=== PATIENT | male | born 1980 | race Caucasian/White ===

== ENCOUNTER 2024-05-08 12:40 | Emergency (ER) | payer OTHER, SELFPAY ==
[2024-05-08 12:42] VITALS: BP 154/112; PULSE 70; RESP 17; TEMP 36.2; O2SAT 100
--- NOTE | 2024-05-08 12:45 | DI.CT_ITS ---
Exam(s) CT HEAD WO EXAM: CT HEAD WO CLINICAL HISTORY: fall forward head injury loc. TECHNIQUE: Imaging Protocol: Axial computed tomography images with coronal and sagittal reformatted images were created and reviewed COMPARISON: No exams were available for comparison FINDINGS: There are no skull fractures. There is right-sided nasal bone fracture which may not be acute. There is no fluid in the nasal cavity and paranasal sinuses. There is no evidence of intracranial hemorrhage, mass effect, or shift of midline structures. There are no extra-axial fluid collections. The ventricles are not enlarged or shifted and there is no blo od within the ventricular system nor within the basal cisterns. IMPRESSION: No acute intracranial findings on this noninfused CT scan of the brain. Right nasal bone fracture, probably not acute Report called to ER physician 05/08/2024 2:15 p.m. RADIATION DOSE DELIVERED: Total DLP DATA REPOSITORY: All CT scans at this facility are submitted to the National Radiology Data Registry (NRDR) Dose Index Registry (DIR) with the [employer] (A[employer]). RADIATION OPTIMIZATION: All CT scans at this facility use at least one of these dose optimization te chniques: automated exposure control; mA and/or kV adjustment per patient size (includes targeted exa ms where dose is matched to clinical indication); or iterative reconstruction.
--- NOTE | 2024-05-08 12:45 | DI.RAD_ITS ---
Exam(s) XR CHEST 2V PA LATERAL EXAM: XR CHEST 2V PA LATERAL CLINICAL HISTORY: fall from bench. TECHNIQUE: 2D digital imaging was performed. COMPARISON: No exams were available for comparison FINDINGS: 2 views: Heart size is normal. The mediastinum is not widened. Lungs are clear. No infiltrates nor pleural effusions. On the lateral view there is slight loss of height of T11 vertebral body and superior endplate of T12 . There are no previous for comparison. Correlation with site of tenderness is recommended. IMPRESSION: No acute pulmonary findings. T11 and T12 vertebral body findings as above. Correlation with site of tenderness recommended. DATA REPOSITORY: RADIATION DOSE DELIVERED:
--- NOTE | 2024-05-08 12:53 | ED.GENADUL_ITS ---
Discharge Plan Disposition Patient Disposition: [facility] Condition: Improving Discharge Details Chief Complaint: ETOHWithdr Clinical Impression: Head injury, Alcohol abuse ED Provider: George Escobar Home Meds and New Rx's Prescriptions: No Action latanoprost 0.005 % drops 1 drp ophthalmic (eye) DAILY Betimol 0.5 % drops 1 drp ophthalmic (eye) BID brimonidine 0.1 % drops 1 drp ophthalmic (eye) Q8H Discharge Instructions Instructions: Head injury in adults, Alcohol Use Disorder ED Additional Instructions: Please follow-up with primary care please return to the emergency department for any worsening symptoms HPI General Date/Time Provider Initiated Documentation: 05/08/24 12:43 . HPI Narrative: 44-year-old male history of alcoholism, currently in police custody presents brought in after falling forward off of a bench in custody hitting his head, loss of consciousness with brief convulsive activity, back to baseline currently, noted to have unequal pupils by staff but does have history of glaucoma. Patient endorses last drink was 48 hours ago. Related Data Home Medications ?Medication ?Instructions ?Recorded ?Confirmed brimonidine 0.1 % eye drops 1 drp ophthalmic (eye) Q8H 05/08/24 05/08/24 latanoprost 0.005 % eye drops 1 drp ophthalmic (eye) DAILY 05/08/24 05/08/24 timolol 0.5 % eye drops (Betimol) 1 drp ophthalmic (eye) BID 05/08/24 05/08/24 Allergies Allergy/AdvReac Type Severity Reaction Status Date / Time No Known Allergies Allergy Unverified 05/08/24 12:48 General Stated Complaint: ETOHWithdr VALENTE: 2 Exam Narrative Exam Narrative: Alert oriented resting comfortably no acute distress Moist mucous membranes tolerating secretions normal voice no stridor Lungs clear bilaterally normal speech no rales rhonchi or wheezes Normal rate and rhythm warm well-perfused extremities Alert moving all extremities following commands, no fasciculations of tongue, no tremor of fingers no cranial nerve deficits no weakness or numbness no ataxia; patient does have anisocoria Course Vital Signs Vital signs: Vital Signs Temperature 36.2 C L 05/08/24 12:42 Pulse 70 05/08/24 12:42 Respiratory Rate 17 05/08/24 12:42 Blood Pressure 154/112 H 05/08/24 12:42 Pulse Oximetry 100 05/08/24 12:42 Temperature 36.2 C L 05/08/24 12:42 Temperature Source Skin 05/08/24 12:42 Pulse 70 05/08/24 12:42 Respiratory Rate 17 05/08/24 12:42 Blood Pressure 154/112 H 05/08/24 12:42 Blood Pressure Position Sitting 05/08/24 12:42 Pulse Oximetry 100 05/08/24 12:42 Oxygen Delivery Method Room Air 05/08/24 12:42 Oxygen Flow Rate 0 05/08/24 12:42 Pain Level 7 05/08/24 12:42 Medical Decision Making 44-year-old male history of alcoholism currently in police custody last drink 48 hours ago fell forward off of a bench striking his forehead brief loss of consciousness and short convulsive activity resolved with return to baseline, moving all extremities following commands alert oriented airway intact breathing and circulation intact, no tongue fasciculation no tremor of hands, noted to be moderately hypertensive arrival no tachycardia, afebrile nontoxic CIWA 0-1, noted anisocoria chronic per history, related to glaucoma, low suspicion for active alcohol withdrawal however given history will give dose of oral Librium, will obtain basic labs electrolytes CT head; low suspicion for primary seizure alcohol withdrawal seizure low suspicion for intracranial hemorrhage low suspicion for ACS PE pneumonia pneumothorax or aortic pathology. Close reassessment of symptoms, disposition pending results and imaging 15: 20 no seizure activity here in department. Remains hemodynamically stable. CIWA score 0-1. Labs imaging unremarkable. Patient will be in custody over the next couple of days before his trial, will discharge with Librium taper out of an abundance of caution despite no evidence of severe withdrawal at this time. Care instruction return precautions given Quality:SDOH Health Related Social Needs: No Data to Display PFSH All Active Problems (Updated 05/08/24 @ 15:22 by George Escobar MD) Alcohol abuse (Chronic) Head injury (Acute) Social History Smoking risk assessment performed?: No
[2024-05-08 13:27] LABS: Abs Immature Grans 0.03 10^3/uL (0.0-0.06); Absolute Basophil Count 0.03 10^3/uL (0.0-0.2); Absolute Eosinophil Count 0.01 10^3/uL (0.0-0.7); Absolute Lymphocyte Count 1.04 10^3/uL (1.2-3.4); Absolute Monocyte Count 0.92 10^3/uL (0.1-0.8); Absolute Neutrophil Count 7.67 10^3/uL (1.2-6.7); Basophils % 0.3 %; Eosinophils % 0.1 %; HCT 47.3 % (40.0-50.0); HGB 16.6 g/dL (13.5-17.5); Immature Grans % 0.3 %; Lymphocytes % 10.7 %; MCH 32.4 pg (27.0-33.0); MCHC 35.1 % (32.0-36.0); MCV 92 fL (80-95); MPV 10.6 fL (8.0-11.0); Monocytes % 9.5 %; Neutrophils % 79.1 %; Platelet Count 293 10^3/uL (130-400); RBC 5.13 10^6/uL (4.36-5.78); RDW 12.9 % (11.8-14.1)
[2024-05-08] MEDS: chlordiazePOXIDE 25 MG CAP 50 MG PO (13:28)
[2024-05-08] MEDS: Normal Saline 1,000 ML 1000 ML IV (13:28)
[2024-05-08 13:43] LABS: ALT 54 U/L (16-63); AST 57 U/L (15-37); Albumin 3.4 g/dL (3.4-5.0); Alkaline Phosphatase 114 U/L (46-116); Anion Gap 12.9 mmol/L (3-11); BUN 11 mg/dL (7-18); CO2 25.1 mmol/L (21.0-32.0); CREATININE 0.9 mg/dL (0.70-1.30); Calcium 9.4 mg/dL (8.5-10.1); Chloride 105 mmol/L (98-107); ETHANOL BLOOD < 3.0 mg/dL (<10); Estimated GFR 108.01 (mL/min/1.73m2); Glucose 126 mg/dL (74-106); Potassium 3.7 mmol/L (3.5-5.1); Sodium 143 mmol/L (136-145); Total Protein 7.3 g/dL (6.4-8.2)
[2024-05-08 13:56] LABS: INR 1.1 (0.9-1.1); PTT Activated 27.4 sec (23.6-32.8); Prothrombin Time 10.8 sec (9.1-11.1)
--- NOTE | 2024-05-08 14:34 | NUR.NOTE ---
Nursing Note: DOC guards at the bedside said they pushed call light as soon as they noticed a change in patient. Aide answered light and called this RN in to room. RN quickly responded, katarina said patient's legs and arms started shaking lasted for a few seconds this was 1 min prior to RN and provider in room. Patient alert and oriented x3, speaking in full sentences. Does not appear to be post ictal at this time.
--- NOTE | 2024-05-08 14:40 | DI.VRAD_ITS ---
PROCEDURE INFORMATION: Exam: XR Chest Exam date and time: 05/08/2024 1:50 PM Age: 44 years old Clinical indication: Other: Fall from bench TECHNIQUE: Imaging protocol: Radiologic exam of the chest. Views: 2 views. COMPARISON: No relevant prior studies available. FINDINGS: Lungs: Unremarkable. No consolidation. Pleural spaces: Unremarkable. No pleural effusion. No pneumothorax. Heart/Mediastinum: Unremarkable. No cardiomegaly. Bones/joints: Unremarkable. IMPRESSION: No acute findings. Dictated and Authenticated by: Lars Grace MD. Ordering:MEGHA Vazquez MD
[2024-05-08] MEDS: chlordiazePOXIDE 25 MG CAP PO (16:08)
[2024-05-08] MEDS: chlordiazePOXIDE 25 MG CAP 150 MG PO (16:09)
== END 2024-05-08 16:28 ==
LOC: ER 15:57
PROVIDERS: Emergency Provider Emergency Medicine
DX: F10.10 Alcohol abuse, uncomplicated (principal); S00.83XA Contusion of other part of head, initial encounter; S02.2XXA Fracture of nasal bones, initial encounter for closed fracture; R55 Syncope and collapse; W08.XXXA Fall from other furniture, initial encounter
CPT/HCPCS: 80053; 96360; 99285; 70450; 71046; 80320; 85025; 85610; 85730; 99283

== ENCOUNTER 2025-05-12 22:49 | Emergency (ER) | payer OTHER, SELFPAY ==
[2025-05-12 22:53] VITALS: BP 149/107; PULSE 80; RESP 18; TEMP 36.1; O2SAT 96
--- NOTE | 2025-05-12 23:10 | W.ED.GENAD ---
Discharge Plan Disposition Patient Disposition: Home Condition: Good Discharge Details Clinical Impression: Foreign body in mouth Primary Care Provider: Unknown,Unknown ED Provider: Jed Antonio Home Meds and New Rx's Prescriptions: No Action latanoprost 0.005 % drops 1 drp ophthalmic (eye) DAILY timolol [Betimol] 0.5 % drops 1 drp ophthalmic (eye) BID brimonidine 0.1 % drops 1 drp ophthalmic (eye) Q8H chlordiazepoxide 25 mg tablet 25 mg PO DAILY Discharge Instructions Additional Instructions: The metal bracing clip has been removed. The have not been adding any significant structural support for quite some time. Please follow-up closely with a dentist to have your teeth removed secondary to the notable disease that is present for your teeth. If you notice any worsening of your symptoms, or any new symptoms such as vomiting, diarrhea, fever, chills, shortness of breath, chest pain, numbness, weakness, or fainting , please return immediately to the emergency department for reevaluation. Please follow up with your primary care provider as soon as possible for reassessment and reevaluation. As always, it was a pleasure participating in your medical care today. HPI General Date/Time Provider Initiated Documentation: 05/12/25 22:53. HPI Narrative: 45-year-old male presents today from the nursing home for foreign body in the mouth. Patient states that 2 to 3 years ago he had his jaw broken, he has had a metal retainer in place for years. He states that over the last few months since his teeth became more and more diseased little components that were adhered to the teeth have popped off. And then tonight the last diseased tooth no longer was able to hold the adhesions, and the majority of the brace completely popped off except for a metal wire holding on the back of the brace. Patient presents to have this removed. No other complaints at this time. Related Data Home Medications ?Medication ?Instructions ?Recorded ?Confirmed brimonidine 0.1 % eye drops 1 drp ophthalmic (eye) Q8H 05/08/24 05/12/25 latanoprost 0.005 % eye drops 1 drp ophthalmic (eye) DAILY 05/08/24 05/12/25 timolol 0.5 % eye drops (Betimol) 1 drp ophthalmic (eye) BID 05/08/24 05/12/25 chlordiazepoxide 25 mg tablet 25 mg PO DAILY 05/12/25 05/12/25 Allergies Allergy/AdvReac Type Severity Reaction Status Date / Time No Known Allergies Allergy Unverified 05/12/25 22:57 General Stated Complaint: DentalOral VALENTE: 3 Exam Narrative Exam Narrative: 1.Const: Well-nourished, Well-developed, appearing stated age 2.Eyes: PERRL, no conjunctival injection, and symmetrical lids. 3.ENT: Atraumatic external nose and ears. Moist MM. Neck: Symmetric, trachea midline, No thyromegaly. Notably poor dentition, nearly all teeth are quite diseased with significant dental caries. A single loosely wrapped wire is present around the back left upper molar, and attached to this wire is a long metal brace roughly 15 cm in length. It is not attached to any of the other teeth. 4.CVS: +S1/S2, Peripheral pulses 2+ and equal in all extremities. Brisk capillary refill in all extremities. 5.RESP: Unlabored respiratory effort. Clear to auscultation bilaterally. No wheezes rales or rhonchi 6.GI: Soft, Nontender/Nondistended, No hepatosplenomegaly. No guarding or rebound. 7.MSK: Normocephalic/Atraumatic, Extremities w/o deformity or ttp No cyanosis or clubbing, Normal movement of all extremities 8.Skin: Warm, Dry. No rashes or lesions. 9.Neuro: superintendent meter tests II-XII grossly intact. Sensation grossly intact, no focal neurologic deficits. 10.Psych: (AAO) x3. Appropriate mood and affect Course Vital Signs Vital signs: Vital Signs Temperature 36.1 C L 05/12/25 22:53 Pulse 80 05/12/25 22:53 Respiratory Rate 18 05/12/25 22:53 Blood Pressure 149/107 H 05/12/25 22:53 Pulse Oximetry 96 05/12/25 22:53 Temperature 36.1 C L 05/12/25 22:53 Temperature Source Tympanic 05/12/25 22:53 Pulse 80 05/12/25 22:53 Respiratory Rate 18 05/12/25 22:53 Blood Pressure 149/107 H 05/12/25 22:53 Blood Pressure Position Sitting 05/12/25 22:53 Pulse Oximetry 96 05/12/25 22:53 Procedure Foreign Body Removal Date of Procedure: 05/12/25. Time of procedure: 23:16 Provider that performed the procedure: Jed Antonio Standard Time Out Performed: No Patient Consented: Verbally Ultrasound: Not used Location of procedure: Other (Mouth, around the upper posterior left molar was a loose fitting wire. This was clipped, and the patient's brace was able to be removed. There were no other structural components noted.) Medical Decision Making 45-year-old male presents today from the nursing home for foreign body in the mouth. Patient states that 2 to 3 years ago he had his jaw broken, he has had a metal retainer in place for years. He states that over the last few months since his teeth became more and more diseased little components that were adhered to the teeth have popped off. And then tonight the last diseased tooth no longer was able to hold the adhesions, and the majority of the brace completely popped off except for a metal wire holding on the back of the brace. Patient presents to have this removed. No other complaints at this time. Physical exam demonstrates notably poor dentition, nearly all teeth are quite diseased with significant dental caries. A single loosely wrapped wire is present around the back left upper molar, and attached to this wire is a long metal brace roughly 15 cm in length. It is not attached to any of the other teeth. The wrapped wire was clipped, and the foreign body was removed. Patient tolerated this well. No bleeding or complication of pain. Recommend close follow-up with a dentist for notable tooth extraction secondary to his chronically poor dentition. Discussed red flags for which to return. I did give the patient a cup of pudding and a peanut butter packet for soft food as he had not eaten today. Patient will be discharged home. I have extensively reviewed the treatment plan and discharge instructions with the patient. I have addressed all patient concerns at this time. The patient was made aware of what symptoms to monitor for that would warrant a return to the emergency department. Discussed the plan with the patient, they demonstrate verbal understanding and agreement with our assessment and plan at this time. The documentation in this chart was dictated using [employer] dictation software. Please excuse any dictation errors. PFSH All Active Problems (Updated 05/12/25 @ 23:11 by Jed R Paco, DO) Foreign body in mouth (Acute) Social History Smoking/Tobacco Use Status: Former Tobacco Use Smoking risk assessment performed?: Yes Alcohol Intake: current Alcohol Intake frequency: 3 or more drinks per day Substance use type: does not use
== END 2025-05-12 23:14 | disposition home or self-care (01) ==
PROVIDERS: Emergency Provider Student in an Organized Health Care Education/Training Program
DX: K08.89 Other specified disorders of teeth and supporting structures (principal); T18.0XXA Foreign body in mouth, initial encounter
CPT/HCPCS: 99285; 99283

== ENCOUNTER 2025-05-19 07:41 | Emergency (ER) | payer OTHER, SELFPAY ==
[2025-05-19] VITALS (11 sets, daily range): BP systolic 138–168; BP diastolic 90–112; PULSE 56–71; RESP 12–24; TEMP 36.4; O2SAT 98–100
--- NOTE | 2025-05-19 08:06 | NUR.NOTE ---
Nursing Note: Spoke with Chio Loomis RN regarding this pt and confirmed suboxone dose with RN. RN states pt refused his dose this AM. Pt states he is allergic to film + orange suboxone tab but allergy has not been verified per [place] RN. Pt took suboxone film yesterday w/ no issues or reactions per RN. aware.
--- NOTE | 2025-05-19 08:15 | RT.EKG_ITS ---
APPROVED REPORT Exam: Resting ECG Reason for Exam: Chest pain Patient Location: E HR:57 bpm ECG Measurements Heart Rate 57 AXIS IN 148 P 58 QRSd 120 QRS 103 QT 417 T 29 QTc 407 Conclusion Sinus bradycardia...rate< 60 Nonspecific intraventricular conduction delay...QRSd >115mS, not LBBB/RBBB Probable lateral infarct, old...Q>35mS, abnormal ST-T, V5-6 I aVL
[2025-05-19] MEDS: Omnipaque 350 MG/ML 500 ML BTL-Imaging package IJ (08:43)
[2025-05-19] MEDS: Normal Saline - Diluent 50 ML VIAL IJ (08:45)
[2025-05-19 08:57] LABS: Abs Immature Grans 0.01 10^3/uL (0.0-0.06); HCT 47.4 % (40.0-50.0); HGB 15.8 g/dL (13.5-17.5); Immature Grans % 0.2 %; MCH 32.3 pg (27.0-33.0); MCHC 33.3 % (32.0-36.0); MCV 97 fL (80-95); MPV 10.1 fL (8.0-11.0); Platelet Count 447 10^3/uL (130-400); RBC 4.89 10^6/uL (4.36-5.78); RDW 12.8 % (11.8-14.1); RDW-SD 45.4 fL; WBC 5.16 10^3/uL (4.4-10.8)
[2025-05-19] MEDS: Buprenorphine/Naloxone 8 mg/2 mg FILM 1 EACH SL (08:59)
--- NOTE | 2025-05-19 09:03 | ED.GENADUL_ITS ---
Discharge Plan Disposition Patient Disposition: Against Medical Advice Discharge Details Clinical Impression: Chest pain, Abdominal pain, Left leg swelling, Syncope Primary Care Provider: Unknown,Unknown ED Provider: Lino Nichole Home Meds and New Rx's Prescriptions: No Action latanoprost 0.005 % drops 1 drp ophthalmic (eye) DAILY timolol [Betimol] 0.5 % drops 1 drp ophthalmic (eye) BID brimonidine 0.1 % drops 1 drp ophthalmic (eye) Q8H chlordiazepoxide 25 mg tablet 25 mg PO DAILY buprenorphine-naloxone [Suboxone] 8-2 mg film 1 film sublingual DAILY Discharge Instructions Instructions: Leaving Against Medical Advice Additional Instructions: You are leaving Against medical advise. You may have life-threatening or lifestyle modifying disease that would go undiagnosed and untreated. You may . Please follow-up with your primary care physician. Please return to the emergency department anytime should you wish to pursue recommended diagnostic workup and treatment. Discharge Data Discharge Date/Time-TO BE ENTERED AT DEPARTURE: 05/19/25 09:15 HPI General Mode of arrival: ambulatory . Date/Time Provider Initiated Documentation: 05/19/25 07:58 . Limitations to Documentation: no limitations . Information obtained by: patient . 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 Accompanied by 2 correctional officers. Patient was pacing for 5-10 minutes when he experienced unresponsiveness, recalling trying to catch himself before losing consciousness. He felt dizzy over the past few days and reports head and chest pain attributed to recent chest compressions. Last drug use was fentanyl over two weeks ago; urine test clean. Describes sharp chest pain from sternum to abdomen, occurring 2-3 times a week, lasting up to a day. Has not sought medical attention. Reports persistent left foot swelling and discoloration for about a year, previously diagnosed with a blood clot, informed it resolved but suspects recurrence. Anticoagulant therapy discontinued. 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 Requests Subutex 8 mg dose missed this morning. Related Data Home Medications ?Medication ?Instructions ?Recorded ?Confirmed brimonidine 0.1 % eye drops 1 drp ophthalmic (eye) Q8H 05/08/24 05/19/25 latanoprost 0.005 % eye drops 1 drp ophthalmic (eye) D AILY 05/08/24 05/19/25 timolol 0.5 % eye drops (Betimol) 1 drp ophthalmic (ey e) BID 05/08/24 05/19/25 chlordiazepoxide 25 mg tablet 25 mg PO DAILY 05/12/25 05/19/25 buprenorphine 8 mg-naloxone 2 mg 1 film sublingual DANYA LY 05/19/25 05/19/25 sublingual film (Suboxone) Allergies Allergy/AdvReac Type Severity Reaction Status Date / Time No Known Allergies Allergy Unverified 05/19/25 07:48 General Stated Complaint: GenMedical VALENTE: 3 Review of Systems All systems reviewed & are unremarkable except as noted in HPI and below Exam Const General: cooperative and no acute distress HENMT Head: normocephalic and atraumatic Mouth: moist mucous membranes Eyes Conjunctivae: normal conjunctivae Sclera: normal sclerae EOM: EOM intact bilaterally Neck Neck: trachea midline and supple Resp Auscultation: clear to auscultation bilaterally, no rales, no rhonchi and no wheezes Cardio Rate: regular rate and not tachycardic Rhythm: regular rhythm GI Palpation: soft, not firm, no guarding, no masses, not rigid and nontender Skin General skin exam: no rashes or lesions noted Neuro General: patient alert, patient awake, patient oriented x3 and tone normal Extrem General: no edema Psych Appearance: grossly normal Mental Status: mental status grossly normal Course Vital Signs Vital signs: Vital Signs Temperature 36.4 C 05/19/25 07:42 Pulse 71 05/19/25 07:42 Respiratory Rate 13 05/19/25 07:42 Blood Pressure 168/104 H 05/19/25 07:42 Pulse Oximetry 100 05/19/25 07:42 Temperature 36.4 C 05/19/25 07:52 Pulse 71 05/19/25 07:52 Respiratory Rate 13 05/19/25 07:52 Respiratory Effort Normal, Non-Labored 05/19/25 08:04 Respiratory Depth Normal 05/19/25 08:04 Respiratory Pattern Normal 05/19/25 08:04 Blood Pressure 168/104 H 05/19/25 07:52 Pulse Oximetry 100 05/19/25 07:52 Oxygen Delivery Method Room Air 05/19/25 07:52 Oxygen Flow Rate 0 05/19/25 07:52 Pain Level 9 05/19/25 07:52 Lab/Test Results Lab/Test Results: Laboratory Tests Range/Units 05/19/25 08:43 WBC (4.4-10.8) 10^3/uL 5.16 RBC (4.36-5.78) 10^6/uL 4.89 Hgb (13.5-17.5) g/dL 15.8 Hct (40.0-50.0) % 47.4 MCV (80-95) fL 97 H MCH (27.0-33.0) pg 32.3 MCHC (32.0-36.0) % 33.3 RDW (11.8-14.1) % 12.8 Plt Count (130-400) 10^3/uL 447 H MPV (8.0-11.0) fL 10.1 Immature Gran % % 0.2 Neutrophils % % 49.4 Lymphocytes % % 38.0 Monocytes % % 8.9 Eosinophils % % 2.5 Basophils % % 1.0 Nucleated RBC % (0.0-0.3) % 0.0 Absolute Neutrophils (1.2-6.7) 10^3/uL 2.55 Absolute Lymphocytes (1.2-3.4) 10^3/uL 1.96 Absolute Monocytes (0.1-0.8) 10^3/uL 0.46 Absolute Eosinophils (0.0-0.7) 10^3/uL 0.13 Absolute Basophils (0.0-0.2) 10^3/uL 0.05 Medical Decision Making ASSESSMENT AND PLAN Initial Assessment: 45-year-old incarcerated male with unresponsive episode after pacing for 5-10 minutes. Reported dizziness, chest pain, and head pain. Declined diagnostic workup and chose to leave against medical advice after understanding risks. Differential Diagnosis: - Unresponsive episode: Dizziness, pacing. Proposed blood tests, CT chest to abdomen, ultrasound leg, cardiac level checks. Declined. - Chest pain: Sharp pain, sternum to abdomen, 2-3 times a week, lasting up to a day. Proposed CT chest and abdomen. Declined. - Left foot swelling: Chronic swelling, discoloration, possible recurrent blood clot. Proposed ultrasound leg. Declined. ED Course: - Tylenol ordered for pain management - Suboxone 8 mg confirmed with [facility] medical staff - EKG was reviewed and interpreted by me: Sinus bradycardia 57 bpm, nonspecific intraventricular conduction delay, QRS duration 120, probable lateral infarct old. - Plan for CTA of the chest abdomen pelvis to assess for acute aortic dissection or other concerning pathology. - Patient wishing to leave without completion of diagnostic testing. I had a conversation with the patient about risk of leaving AGAINST MEDICAL ADVICE and patient determined to have decision-making capacity and refused further testing and treatment. Correctional officers were present and did not feel further testing or treatment was indicated given patient's refusal. Final Assessment: Patient experienced unresponsive episode, dizziness, chest pain, and left foot swelling. Declined diagnostic workup and chose to leave against medical advice after understanding risks. Tylenol ordered and Suboxone 8 mg confirmed. Clinical Impression: - Unresponsive episode - Chest pain - Left foot swelling Disposition: Discharge home. Chose to leave against medical advice after understanding risks. Follow-Up: Monitor symptoms. Seek medical attention if pain or swelling worsens or persists. Patient Education: Risks of leaving against medical advice discussed. Advised to return if symptoms worsen or persist. This document was written with the assistance of ADAM Mcginnis. The patient consented to its use. Lab Data Lab results reviewed: Yes I reviewed the patient's lab results. Labs: Laboratory Tests Range/Units 05/19/25 05/19/25 08:43 09:19 WBC (4.4-10.8) 10^3/uL 5.16 RBC (4.36-5.78) 10^6/uL 4.89 Hgb (13.5-17.5) g/dL 15.8 Hct (40.0-50.0) % 47.4 MCV (80-95) fL 97 H MCH (27.0-33.0) pg 32.3 MCHC (32.0-36.0) % 33.3 RDW (11.8-14.1) % 12.8 Plt Count (130-400) 10^3/uL 447 H MPV (8.0-11.0) fL 10.1 Immature Gran % % 0.2 Neutrophils % % 49.4 Lymphocytes % % 38.0 Monocytes % % 8.9 Eosinophils % % 2.5 Basophils % % 1.0 Nucleated RBC % (0.0-0.3) % 0.0 Absolute Neutrophils (1.2-6.7) 10^3/uL 2.55 Absolute Lymphocytes (1.2-3.4) 10^3/uL 1.96 Absolute Monocytes (0.1-0.8) 10^3/uL 0.46 Absolute Eosinophils (0.0-0.7) 10^3/uL 0.13 Absolute Basophils (0.0-0.2) 10^3/uL 0.05 Sodium (136-145) mmol/L 144 Potassium (3.5-5.1) mmol/L 3.9 Chloride (98-107) mmol/L 105 Carbon Dioxide (21.0-32.0) mmol/L 31.3 Anion Gap (3-11) mmol/L 7.7 BUN (7-18) mg/dL 9 Creatinine (0.70-1.30) mg/dL 0.9 Est GFR (CKD-EPI 2020) (mL/min/1.73m2) 107.33 Glucose (74-106) mg/dL 87 Calcium (8.5-10.1) mg/dL 9.5 Magnesium (1.8-2.4) mg/dL 2.1 Total Bilirubin (0.2-1.0) mg/dL 0.5 AST (15-37) U/L 44 H ALT (16-63) U/L 41 Alkaline Phosphatase (46-116) U/L 110 Troponin I (<or=76) ng/L 7 Cancelled Total Protein (6.4-8.2) g/dL 8.6 H Albumin (3.4-5.0) g/dL 4.4 Lipase (<78) U/L 27 PFSH All Active Problems Syncope (Chronic) Left leg swelling (Acute) Abdominal pain (Acute) Chest pain (Acute) Foreign body in mouth (Acute) Social History Smoking/Tobacco Use Status: Former Tobacco Use Smoking risk assessment performed?: Yes Alcohol Intake: current Alcohol Intake frequency: 3 or more drinks per day Substance use type: does not use
[2025-05-19] MEDS: Acetaminophen 325 MG TAB 650 MG PO (09:11)
[2025-05-19 09:15] LABS: ALT 41 U/L (16-63); AST 44 U/L (15-37); Albumin 4.4 g/dL (3.4-5.0); Alkaline Phosphatase 110 U/L (46-116); Anion Gap 7.7 mmol/L (3-11); BUN 9 mg/dL (7-18); Bilirubin, Total 0.5 mg/dL (0.2-1.0); CO2 31.3 mmol/L (21.0-32.0); Calcium 9.5 mg/dL (8.5-10.1); Chloride 105 mmol/L (98-107); Estimated GFR 107.33 (mL/min/1.73m2); Glucose 87 mg/dL (74-106); Lipase 27 U/L (<78); Magnesium 2.1 mg/dL (1.8-2.4); Potassium 3.9 mmol/L (3.5-5.1); Sodium 144 mmol/L (136-145); Total Protein 8.6 g/dL (6.4-8.2); Troponin I 7 ng/L (<or=76)
== END 2025-05-19 09:15 | disposition left against medical advice (07) ==
LOC: ER 09:34
PROVIDERS: Emergency Provider Student in an Organized Health Care Education/Training Program
DX: R22.42 Localized swelling, mass and lump, left lower limb (principal); R07.9 Chest pain, unspecified; R55 Syncope and collapse; R10.9 Unspecified abdominal pain; H40.31X0 Glaucoma secondary to eye trauma, right eye, stage unspecified; B19.20 Unspecified viral hepatitis C without hepatic coma; Z87.891 Personal history of nicotine dependence; Z53.29 Procedure and treatment not carried out because of patient's decision for other reasons
CPT/HCPCS: 36415; 80053; 83690; 93005; 99284; 83735; 84484; 85025; 93010

== ENCOUNTER 2025-05-21 15:09 | Emergency (ER) | payer OTHER, SELFPAY ==
[2025-05-21] VITALS (19 sets, daily range): BP systolic 147–156; BP diastolic 90–106; PULSE 47–68; RESP 9–21; TEMP 37; O2SAT 98–100
--- NOTE | 2025-05-21 15:00 | RT.EKG_ITS ---
APPROVED REPORT Exam: Resting ECG Reason for Exam: CHEST PAIN Patient Location: E HR:54 bpm ECG Measurements Heart Rate 54 AXIS DC 147 P 64 QRSd 111 QRS 93 QT 408 T 56 QTc 387 Conclusion Sinus bradycardia at a rate of 54 with normal intervals without acute ischemic change, appears similar to prior on 05/19/25.
--- NOTE | 2025-05-21 15:15 | DI.RAD_ITS ---
Exam(s) XR CHEST 2V PA LATERAL EXAM: XR CHEST 2V PA LATERAL CLINICAL HISTORY: chest pain, recent chest rub/compression. TECHNIQUE: 2D digital imaging was performed. COMPARISON: CR,XR XR CHEST 2V PA LATERAL from 05/08/2024 FINDINGS: 2 views: Heart size is normal. The mediastinum is not widened. Lungs are clear. No infiltrates nor pleural effusions. IMPRESSION: No acute pulmonary findings. DATA REPOSITORY: RADIATION DOSE DELIVERED:
--- NOTE | 2025-05-21 15:31 | ED.GENADUL_ITS ---
Discharge Plan Disposition Patient Disposition: Home Condition: Stable Discharge Details Clinical Impression: Chest wall pain Primary Care Provider: Unknown,Unknown ED Provider: Halina Zhu Home Meds and New Rx's Prescriptions: No Action latanoprost 0.005 % drops 1 drp ophthalmic (eye) DAILY timolol [Betimol] 0.5 % drops 1 drp ophthalmic (eye) BID brimonidine 0.1 % drops 1 drp ophthalmic (eye) Q8H chlordiazepoxide 25 mg tablet 25 mg PO DAILY buprenorphine-naloxone [Suboxone] 8-2 mg film 1 film sublingual DAILY Discharge Instructions Instructions: Chest Pain, Adult ED Additional Instructions: You had blood work, EKG, chest x-ray and CTA chest and arm done in the ED without any acute finding. Take over the counter pain medication as needed. Follow-up with your PCP and return to the Emergency Department with any other concerns. Discharge Data Discharge Date/Time-TO BE ENTERED AT DEPARTURE: 05/21/25 17:54 HPI General Date/Time Provider Initiated Documentation: 05/21/25 15:14 . HPI Narrative: Patient is a 45-year-old male with history of hepatitis C, glaucoma with blind returns to the emergency department for chest pain. The patient reports that he was washing his hair in the sink around 12:00 this afternoon. 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 Reports he also has pain along the right lower rib. Reports he was having no chest discomfort prior to this. Denies any fevers or chills. Denies any cough or shortness of breath. Abdominal pain, nausea or vomiting. Admits that he has lower extremity edema on the left leg. However this is baseline for him. Patient is accompanied by it security specialist reports that just prior to emergency room arrival the patient developed swelling of the right hand and it was blue reports he was not given For about 15 seconds and went away on its own. Patient denies numbness/tingling sensations right upper extremity and noticed swelling but otherwise felt fine. Reports he has had no trauma or injury to his chest today. He reports that he was not given any medication prior to emergency room arrival while he was in custody. Related Data Home Medications ?Medication ?Instructions ?Recorded ?Confirmed brimonidine 0.1 % eye drops 1 drp ophthalmic (eye) Q8H 05/08/24 05/21/25 latanoprost 0.005 % eye drops 1 drp ophthalmic (eye) D AILY 05/08/24 05/21/25 timolol 0.5 % eye drops (Betimol) 1 drp ophthalmic (ey e) BID 05/08/24 05/21/25 chlordiazepoxide 25 mg tablet 25 mg PO DAILY 05/12/25 05/21/25 buprenorphine 8 mg-naloxone 2 mg 1 film sublingual DANYA LY 05/19/25 05/21/25 sublingual film (Suboxone) Allergies Allergy/AdvReac Type Severity Reaction Status Date / Time No Known Allergies Allergy Unverified 05/21/25 15:20 General Stated Complaint: Chest Pain VALENTE: 3 Review of Systems Narrative: Review of systems are negative except as mentioned. Exam Narrative Exam Narrative: General appearance: The patient is alert, has no immediate need for airway protection and no signs of toxicity. Neck: Supple, non-tender. Respiratory: There are no retractions. Lungs are clear to auscultation. Cardiovascular: Regular in rate and rhythm. Radial pulses are intact and equal. Gastrointestinal: The abdomen is soft and nondistended with normal bowel sounds. Nontender to palpation throughout. Neurological: The patient is alert, awake and oriented x 3. The patient has lower extremity asymmetry with the left flexor versus the right which she reports is chronic Skin: Patient superficial abrasion to the mid sternum without overlying erythema or increased warmth to the touch. Back: No CVA tenderness is noted to palpation bilaterally. Extremities: The patient has lower extremity asymmetry with the left flexor versus the right which she reports is chronic and unchanged. I do not appreciate any upper extremity asymmetry. He has no tenderness palpation of the bilateral upper extremities. He has equal strength bilateral upper EXTR pulses. The patient has reproducible midsternal tenderness to palpation and in the right anterior lateral rib. Course Vital Signs Vital signs: Vital Signs Temperature 37 C 05/21/25 15:10 Pulse 68 05/21/25 15:10 Respiratory Rate 18 05/21/25 15:10 Blood Pressure 156/106 H 05/21/25 15:10 Pulse Oximetry 98 05/21/25 15:10 Temperature 37 C 05/21/25 15:10 Pulse 68 05/21/25 15:10 Respiratory Rate 18 05/21/25 15:29 Respiratory Effort Normal 05/21/25 15:29 Respiratory Depth Normal 05/21/25 15:29 Respiratory Pattern Normal 05/21/25 15:29 Blood Pressure 156/106 H 05/21/25 15:10 Blood Pressure Position Supine 05/21/25 15:10 Pulse Oximetry 98 05/21/25 15:10 Oxygen Delivery Method Room Air 05/21/25 15:10 Oxygen Flow Rate 0 05/21/25 15:10 Pain Level 10 05/21/25 15:10 Medical Decision Making I reviewed the patient's recent emergency room visit [facility]. The patient was evaluated here on May 19 after an responsive episode. Patient was found to have unresponsive episode while in custody and had sternal rub/chest compressions. The Emergency Department the patient had blood work and EKG. Patient subsequently left AGAINST MEDICAL ADVICE and was taken back to custody. Told the patient with plan for cardiac workup to see Chest x-ray knee agrees. He is requesting his pain medication so I ordered Tylenol. EKG is done and it is nondiagnositic. Chest x-ray is unremarkable. His CBC and CMP are benign. Troponin is within normal limits but D-dimer is elevated. For this reason I ordered CT angiography study. CTA chest is negative for PE. Right upper extremity CT is unremarkable as well. I have since updated the patient of work-up result and of plan for discharge. He has requested Ibuprofen for headache, states he normally takes Ibuprofen when gets a headache which is not unusual for him so this has been ordered for him. He is otherwise instructed to follow-up with his PCP and return to the Emergency Department with any other concerns. Imaging Data Radiologic Study: Imaging: X-Ray (chest) Radiologist's impression: No acute pulmonary findings. Radiologic Study #2: Imaging: CT Scan (CTA chest) Radiologist's impression: 1. No evidence of acute pulmonary emboli. No evidence of pulmonary infarction.No infiltrates nor pleural effusions. 2. No intrathoracic adenopathy. 3. Normal heart size. No pericardial effusion. Radiologic Study #3: Imaging: CT Scan (CT right upper extremity) Radiologist's impression: No significant focal findings on the CT scan of the right upper extremity. ECG Data Attestation: I personally reviewed and interpreted this ECG (s) as follows: (Sinus bradycardia at a rate of 54 with normal intervals without acute ischemic change, appears similar to prior on 05/19/25.) PFSH All Active Problems (Updated 05/21/25 @ 17:45 by Halina Zhu DO) Chest wall pain (Acute) Syncope (Chronic) Left leg swelling (Acute) Abdominal pain (Acute) Chest pain (Acute) Foreign body in mouth (Acute) Social History Smoking/Tobacco Use Status: Former Tobacco Use Smoking risk assessment performed?: Yes Alcohol Intake: current Alcohol Intake frequency: 3 or more drinks per day Substance use type: marijuana and crack/cocaine Housing: other PAWSS Have you Been Recently Intoxicated or Drunk Within the Last 30 days?: No Have you Ever Experienced Previous Episodes of Alcohol Withdrawal?: No Have you ever Experienced Withdrawal Seizures?: No Have you ever Experienced Delirium Tremens(DT)s?: No Have you ever undergone Alcohol Rehabilitation Treatment (i.e, inpt ot outpatient treatment programs)?: No Have you ever Experienced Blackouts?: No Have you ever Combined Alcohol with other Downers within the last 90 days?: No Have you ever Combined Alcohol with any other Substance of Abuse during the last 90 days?: No Positive Blood Alcohol level on Presentation? [PCS.BAL]: No Evidence of Increased Autonomic Activity (i.e. HR>120, tremor, sweating, agitation, nausea)?: No Result: 0
[2025-05-21 15:36] LABS: Abs Immature Grans 0.01 10^3/uL (0.0-0.06); HCT 40.1 % (40.0-50.0); Immature Grans % 0.2 %; MCH 31.9 pg (27.0-33.0); MCHC 33.2 % (32.0-36.0); MCV 96 fL (80-95); MPV 10.3 fL (8.0-11.0); Platelet Count 437 10^3/uL (130-400); RBC 4.17 10^6/uL (4.36-5.78); RDW 12.5 % (11.8-14.1); RDW-SD 44.3 fL; WBC 6.63 10^3/uL (4.4-10.8)
[2025-05-21] MEDS: Acetaminophen 500 MG TAB 1000 MG PO (15:37)
[2025-05-21 15:43] LABS: HGB 13.3 g/dL (13.5-17.5)
[2025-05-21 15:56] LABS: ALT 37 U/L (16-63); AST 35 U/L (15-37); Albumin 3.5 g/dL (3.4-5.0); Alkaline Phosphatase 93 U/L (46-116); Anion Gap 4.5 mmol/L (3-11); BUN 14 mg/dL (7-18); Bilirubin, Total 0.2 mg/dL (0.2-1.0); CO2 29.5 mmol/L (21.0-32.0); Calcium 9.0 mg/dL (8.5-10.1); Chloride 107 mmol/L (98-107); Estimated GFR 111.22 (mL/min/1.73m2); Glucose 91 mg/dL (74-106); Potassium 4.3 mmol/L (3.5-5.1); Sodium 141 mmol/L (136-145); Total Protein 6.8 g/dL (6.4-8.2); Troponin I 6 ng/L (<or=76)
[2025-05-21 16:03] LABS: D-Dimer 748 ng/mlFEU (<500)
--- NOTE | 2025-05-21 16:15 | DI.CT_ITS ---
Exam(s) CT CHEST PE CTA EXAM: CT CHEST PE CTA CLINICAL HISTORY: chest pain, dimer elev. TECHNIQUE: Imaging Protocol: CT angiography of the chest was performed using pulmonary embolus protocol. Multi planar reconstructions were performed. CONTRAST MATERIAL: Intravenous: Omnipaque 350 Contrast volume: 100 cc COMPARISON: CT CT UPPER EXTREMITY RT W from 05/21/2025 FINDINGS: CHEST: PULMONARY ARTERIES: There are no intraluminal filling defects to suggest acute pulmonary emboli. LUNGS: There are no infiltrates nor evidence of pulmonary infarction.. There are no pleural effusions. MEDIASTINUM: There is no hilar nor mediastinal adenopathy. CARDIAC: Heart size is upper normal. There is no pericardial effusion.Caliber of the thoracic aorta is within normal limits. There is independent origin of the left vertebral artery off of the aortic arch incidentally noted. There is no significant shift of the interventricular septum. PARTIALLY VISUALIZED UPPERMOST ABDOMEN: No obvious findings. No ascites. OSSEOUS: No fractures. No significant osseous lesions.. IMPRESSION: 1. No evidence of acute pulmonary emboli. No evidence of pulmonary infarction.No infiltrates nor pleural effusions. 2. No intrathoracic adenopathy. 3. Normal heart size. No pericardial effusion. Report called by myself to ER physician 05/21/2025 at 5:28 p.m. RADIATION DOSE DELIVERED: 651.3mGy.cm Total DLP DATA REPOSITORY: All CT scans at this facility are submitted to the National Radiology Data Registry (NRDR) Dose Index Registry (DIR) with the [employer] ([employer]). RADIATION OPTIMIZATION: All CT scans at this facility use at least one of these dose optimization techniques: automated exposure control; mA and/or kV adjustment per patient size (includes targeted exams where dose is matched to clinical indication); or iterative reconstruction.
--- NOTE | 2025-05-21 16:22 | DI.CT_ITS ---
Exam(s) CT UPPER EXTREMITY RT W EXAM: CT UPPER EXTREMITY RT W CLINICAL HISTORY: swelling TECHNIQUE: Imaging Protocol: Axial computed tomography images with coronal and sagittal reformatted images were created and reviewed. Field of view is from the hand to the shoulder. CONTRAST MATERIAL: Intravenous: Omnipaque 350 Contrast volume:100 mL contrast route:IV - COMPARISON: No exams were available for comparison FINDINGS: OSSEOUS: There are no fractures identified. No significant osseous lesions SOFT TISSUES: There is no evidence of mass nor abnormal fluid collection in the upper extremity. There is no gas in soft tissues. There is no radiopaque foreign body. VASCULAR: Inadequate opacification of the arteries and veins to determine if there is intraluminal thrombus on the arterial or venous side. However, there is enough contrast in the axillary vein to state that there is no evidence of thrombus at this level. IMPRESSION: No significant focal findings on the CT scan of the right upper extremity. Discussed with ER physician 05/21/2025 at 5:30 p.m. RADIATION DOSE DELIVERED: 651.3mGy.cm Total DLP DATA REPOSITORY: All CT scans at this facility are submitted to the National Radiology Data Registry (NRDR) Dose Index Registry (DIR) with the [employer] (ACR). RADIATION OPTIMIZATION: All CT scans at this facility use at least one of these dose optimization techniques: automated exposure control; mA and/or kV adjustment per patient size (includes targeted exams where dose is matched to clinical indication); or iterative reconstruction.
[2025-05-21] MEDS: Normal Saline - Diluent 50 ML VIAL IJ (16:48)
[2025-05-21] MEDS: Omnipaque 350 MG/ML 100 ML BTL IJ (16:48)
[2025-05-21] MEDS: Ibuprofen 800 MG TAB PO (17:55)
== END 2025-05-21 17:54 | disposition home or self-care (01) ==
PROVIDERS: Emergency Provider Emergency Medicine
DX: R51.9 Headache, unspecified (principal); R07.9 Chest pain, unspecified
CPT/HCPCS: 99285; 99284; 71275; 80053; 93005; 71046; 73201; 84484; 85025; 85379; 93010; J3490

== ENCOUNTER 2025-06-01 11:58 | Emergency (ER) | payer OTHER, SELFPAY ==
[2025-06-01 12:08] VITALS: BP 129/86; PULSE 71; RESP 18; TEMP 36.7; O2SAT 94
--- NOTE | 2025-06-01 12:30 | DI.US_ITS ---
Exam(s) US LOWER EXTREMITY VENOUS LT EXAM: US LOWER EXTREMITY VENOUS LT CLINICAL HISTORY: pain, swelling. TECHNIQUE: Lower extremity venous ultrasound performed using grayscale, color- flow, and spectral Doppler analysis. COMPARISON: No exams were available for comparison FINDINGS: The common femoral and profundus femoral veins demonstrate normal compressibility, augmentation, and color Doppler. There is partially occlusive thrombus seen in the femoral vein in the mid thigh measuring 8 cm in length. There is an additional area of non occlusive thrombus noted in the femoral vein in the distal thigh measuring 2 cm. Popliteal vein partially occlusive thrombus measuring 3 cm is noted. The posterior tibial and peroneal veins are patent. No saphenous vein thrombosis or other superficial venous thrombosis is seen. No hematoma or Zeng's cyst is seen. IMPRESSION: There is a partially occlusive thrombus, likely related old residual thrombus, in the mid and distal femoral vein as well as popliteal vein. DATA REPOSITORY:
--- NOTE | 2025-06-01 12:48 | W.ED.GENAD ---
Discharge Plan Disposition Patient Disposition: [facility] Discharge Details Clinical Impression: Left femoral vein DVT Primary Care Provider: Unknown,Unknown ED Provider: Dileep Canseco Home Meds and New Rx's Prescriptions: New apixaban 5 mg tablet 10 mg PO BID 7 Days Qty: 28 0RF apixaban 5 mg tablet 5 mg PO BID 90 Days Qty: 180 0RF Rx Instructions: Please start this medication beginning June 07, 2025. acetaminophen 500 mg capsule 1,000 mg PO TID PRN PRNQty: 60 0RF No Action latanoprost 0.005 % drops 1 drp ophthalmic (eye) DAILY timolol [Betimol] 0.5 % drops 1 drp ophthalmic (eye) BID brimonidine 0.1 % drops 1 drp ophthalmic (eye) Q8H chlordiazepoxide 25 mg tablet 25 mg PO DAILY buprenorphine-naloxone [Suboxone] 8-2 mg film 1 film sublingual DAILY Discharge Instructions Instructions: Deep Vein Thrombosis (DVT) ED Additional Instructions: Please follow-up with your primary care provider regarding your visit to the emergency department today. Be sure to discuss results of all test performed here today to include radiology, and laboratory testing as well as results for any pending cultures. Should your symptoms worsen, or if you develop new concerning symptoms, please return immediately emergency department for further evaluation. HPI General Date/Time Provider Initiated Documentation: 06/01/25 11:59. HPI Narrative: The patient is a 45-year-old male with a history of deep vein thrombosis (DVT) and alcohol withdrawal, presenting with exacerbation of symptoms related to thromboembolic events. Despite anticoagulant therapy, the patient's thrombi remain unresolved. He reports bilateral pedal paresthesia, with complete anesthesia in the left foot persisting for several days. The right foot and leg exhibit numbness, accompanied by edema and severe pain. The patient was diagnosed with a DVT in the leg approximately 1.5 years ago and was treated with apixaban (Eliquis) for over six months. Initial improvement was noted; however, the edema recurred with regular physical activity. The swelling and pain acutely worsened last night. He attempted to alleviate symptoms by elevating the leg while trying to sleep but experienced significant discomfort. He reports tenderness in the inguinal region and posterior thigh, corresponding to the site of the initial thrombus. The patient requests a venous ultrasound of the affected leg. Additionally, he has experienced mild dyspnea since late last night or early this morning, around [id number] hours. Related Data Home Medications ?Medication ?Instructions ?Recorded ?Confirmed brimonidine 0.1 % eye drops 1 drp ophthalmic (eye) Q8H 05/08/24 06/01/25 latanoprost 0.005 % eye drops 1 drp ophthalmic (eye) DAILY 05/08/24 06/01/25 timolol 0.5 % eye drops (Betimol) 1 drp ophthalmic (eye) BID 05/08/24 06/01/25 chlordiazepoxide 25 mg tablet 25 mg PO DAILY 05/12/25 06/01/25 buprenorphine 8 mg-naloxone 2 mg 1 film sublingual DAILY 05/19/25 06/01/25 sublingual film (Suboxone) acetaminophen 500 mg capsule 1,000 mg (2 x 500 mg) PO TID PRN 06/01/25 PRN #60 caps apixaban 5 mg tablet 5 mg PO BID 3 months #180 tabs 06/01/25 apixaban 5 mg tablet 10 mg (2 x 5 mg) PO BID 7 days #28 06/01/25 tabs Previous Rx's ?Medication ?Instructions ?Recorded acetaminophen 500 mg capsule 1,000 mg (2 x 500 mg) PO TID PRN 06/01/25 PRN #60 caps apixaban 5 mg tablet 5 mg PO BID 3 months #180 tabs 06/01/25 apixaban 5 mg tablet 10 mg (2 x 5 mg) PO BID 7 days #28 06/01/25 tabs Allergies Allergy/AdvReac Type Severity Reaction Status Date / Time No Known Allergies Allergy Unverified 06/01/25 12:13 General Stated Complaint: Cellulitis VALENTE: 3 Review of Systems All systems reviewed & are unremarkable except as noted in HPI and below Exam Narrative Exam Narrative: Vital signs: Reviewed. General Appearance: Alert and oriented. No acute distress. HEENT: NCAT, EOMI, not icteric. External ears normal. No rhinorrhea. Moist mucous membranes. Neck: Supple, full range of motion, no observable masses, No meningeal sign. Respiratory: No Respiratory distress. No tachypnea. Cardiovascular: DP pulses 2+ bilaterally. Gastrointestinal: Soft, nondistended, No rebound tenderness. Musculoskeletal: Tenderness to compression of left calf, slight erythema of left lower extremity at calf and distal. Skin: Warm and dry, no rash. Neurological: Normal Gait, Grossly intact. Sensation of both feet intact bilaterally Psychiatric: Appropriate for situation. Course Reevaluation(s) Reevaluation: On reassessment, patient is resting comfortably, remains hemodynamically stable. Results shared with discussed with patient who is in agreement to begin anticoagulation for treatment of his DVT, pain control will be limited to Tylenol due to the fact that he is currently incarcerated. Instructed to return the emergency department should develop worsening symptoms, acute chest pain shortness of breath, symptoms of internal bleeding to include dizziness, lethargy, melena hematochezia or any other new or concerning symptoms. Vital Signs Vital signs: Vital Signs Temperature 36.7 C 06/01/25 12:08 Pulse 71 06/01/25 12:08 Respiratory Rate 18 06/01/25 12:08 Blood Pressure 129/86 06/01/25 12:08 Pulse Oximetry 94 06/01/25 12:08 Temperature 36.7 C 06/01/25 12:08 Temperature Source Oral 06/01/25 12:08 Pulse 71 06/01/25 12:08 Respiratory Rate 18 06/01/25 12:08 Blood Pressure 129/86 06/01/25 12:08 Pulse Oximetry 94 06/01/25 12:08 Oxygen Delivery Method Room Air 06/01/25 12:08 Oxygen Flow Rate 0 06/01/25 12:08 Pain Level 10 06/01/25 12:08 Medical Decision Making Initial Assessment: 45-year-old male with excruciating pain and swelling in left leg, numbness in both feet, and history of DVT in left leg treated with Eliquis for over 6 months. Differential Diagnosis: - Deep Vein Thrombosis (DVT) History of DVT in left leg 1.5 years ago. Reports swelling, pain, and numbness. Ultrasound to confirm presence of active blood clot. Anticoagulation therapy if confirmed. Pain management. Given reported shortness of breath, will also consider possible pulmonary embolism. Will screen for signs of massive PE with troponin, BNP. However with normal vital signs, this is unlikely and if anticoagulation is started for DVT this will also suffice for any subsegmental PE. Should DVT scan be negative, will consider CT PE study to ensure no active clot burden. - Bilateral foot numbness No objective numbness on physical exam. Will screen for diabetes, and likely instruct patient to follow-up given this is the bilateral complaint is likely peripheral neuropathy and unlikely to represent a central nervous system issue. Imaging Data Radiologic Study: Radiologist's impression: Patient Name: Juwan Barnett Unit #: [id number] Loc: ER Ordering Provider: Dileep Canseco M.D. Status: [facility] Primary Care Provider: Unknown,Unknown Date of Exam: 06/01/25 Sex: M Admission Date: 06/01/25 : 1980 Age: 45 Exam(s) XR CHEST 2V PA LATERAL EXAM: XR CHEST 2V PA LATERAL CLINICAL HISTORY: Chest pain TECHNIQUE: 2D digital imaging was performed. Two views. COMPARISON: CT CT CHEST PE CTA from 05/21/2025 FINDINGS: HEART: Normal size. Aorta: Not dilated. PULMONARY VASCULATURE: Normal. MEDIASTINUM: Unremarkable. LUNGS: Clear. PLEURAL SPACE: No pleural effusion or pneumothorax. BONE:Unremarkable for age. SOFT TISSUES: Unremarkable. IMPRESSION: No acute abnormality. DATA REPOSITORY: RADIATION DOSE DELIVERED: Ordered By: Dileep Canseco M.D. CC: Radiologic Study #2: Radiologist's impression: Exam(s) US LOWER EXTREMITY VENOUS LT EXAM: US LOWER EXTREMITY VENOUS LT CLINICAL HISTORY: pain, swelling. TECHNIQUE: Lower extremity venous ultrasound performed using grayscale, color-flow, and spectral Doppler analysis. COMPARISON: No exams were available for comparison FINDINGS: The common femoral and profundus femoral veins demonstrate normal compressibility, augmentation, and color Doppler. There is partially occlusive thrombus seen in the femoral vein in the mid thigh measuring 8 cm in length. There is an additional area of non occlusive thrombus noted in the femoral vein in the distal thigh measuring 2 cm. Popliteal vein partially occlusive thrombus measuring 3 cm is noted. The posterior tibial and peroneal veins are patent. No saphenous vein thrombosis or other superficial venous thrombosis is seen. No hematoma or Zeng's cyst is seen. IMPRESSION: There is a partially occlusive thrombus, likely related old residual thrombus, in the mid and distal femoral vein as well as popliteal vein. DATA REPOSITORY: Lab Data Lab results reviewed: Yes I reviewed the patient's lab results. Labs: Laboratory Tests Range/Units 06/01/25 14:09 WBC (4.4-10.8) 10^3/uL 5.80 RBC (4.36-5.78) 10^6/uL 4.53 Hgb (13.5-17.5) g/dL 14.6 Hct (40.0-50.0) % 42.9 MCV (80-95) fL 95 MCH (27.0-33.0) pg 32.2 MCHC (32.0-36.0) % 34.0 RDW (11.8-14.1) % 11.9 Plt Count (130-400) 10^3/uL 271 MPV (8.0-11.0) fL 10.8 Immature Gran % % 0.2 Neutrophils % % 37.9 Lymphocytes % % 42.8 Monocytes % % 9.8 Eosinophils % % 8.3 Basophils % % 1.0 Nucleated RBC % (0.0-0.3) % 0.0 Absolute Neutrophils (1.2-6.7) 10^3/uL 2.20 Absolute Lymphocytes (1.2-3.4) 10^3/uL 2.48 Absolute Monocytes (0.1-0.8) 10^3/uL 0.57 Absolute Eosinophils (0.0-0.7) 10^3/uL 0.48 Absolute Basophils (0.0-0.2) 10^3/uL 0.06 Sodium (136-145) mmol/L 141 Potassium (3.5-5.1) mmol/L 4.4 Chloride (98-107) mmol/L 103 Carbon Dioxide (21.0-32.0) mmol/L 30.8 Anion Gap (3-11) mmol/L 7.2 BUN (7-18) mg/dL 19 H Creatinine (0.70-1.30) mg/dL 0.8 Est GFR (CKD-EPI 2020) (mL/min/1.73m2) 111.22 Glucose (74-106) mg/dL 120 H Calcium (8.5-10.1) mg/dL 9.4 Total Bilirubin (0.2-1.0) mg/dL 0.2 AST (15-37) U/L 44 H ALT (16-63) U/L 62 Alkaline Phosphatase (46-116) U/L 111 Troponin I (<or=76) ng/L 4 NT-Pro-B Natriuret Pep (<300) pg/mL 23 Total Protein (6.4-8.2) g/dL 8.2 Albumin (3.4-5.0) g/dL 4.4 PFSH All Active Problems (Updated 06/01/25 @ 15:00 by Dileep Canseco MD) Left femoral vein DVT (Acute) Chest wall pain (Acute) Syncope (Chronic) Left leg swelling (Acute) Abdominal pain (Acute) Chest pain (Acute) Foreign body in mouth (Acute) Social History Smoking/Tobacco Use Status: Former Tobacco Use Smoking risk assessment performed?: Yes Alcohol Intake: current Alcohol Intake frequency: 3 or more drinks per day Drug use: Occasionally Substance use type: marijuana and crack/cocaine Housing: other Additional Social history: correctional facility.
--- NOTE | 2025-06-01 13:15 | RT.EKG_ITS ---
APPROVED REPORT Exam: Resting ECG Reason for Exam: Chest pain Patient Location: E HR:63 bpm ECG Measurements Heart Rate 63 AXIS MO 176 P 65 QRSd 117 QRS 106 QT 409 T 40 QTc 418 Conclusion Sinus rhythm...normal P axis, V-rate 60- 99 Nonspecific intraventricular conduction delay...QRSd >115mS, not LBBB/RBBB Consider anterior infarct...Q >30mS in V2-V5 No STEMI
--- NOTE | 2025-06-01 13:17 | DI.RAD_ITS ---
Exam(s) XR CHEST 2V PA LATERAL EXAM: XR CHEST 2V PA LATERAL CLINICAL HISTORY: Chest pain TECHNIQUE: 2D digital imaging was performed. Two views. COMPARISON: CT CT CHEST PE CTA from 05/21/2025 FINDINGS: HEART: Normal size. Aorta: Not dilated. PULMONARY VASCULATURE: Normal. MEDIASTINUM: Unremarkable. LUNGS: Clear. PLEURAL SPACE: No pleural effusion or pneumothorax. BONE:Unremarkable for age. SOFT TISSUES: Unremarkable. IMPRESSION: No acute abnormality. DATA REPOSITORY: RADIATION DOSE DELIVERED:
[2025-06-01 14:18] LABS: Abs Immature Grans 0.01 10^3/uL (0.0-0.06); HCT 42.9 % (40.0-50.0); HGB 14.6 g/dL (13.5-17.5); Immature Grans % 0.2 %; MCH 32.2 pg (27.0-33.0); MCHC 34.0 % (32.0-36.0); MCV 95 fL (80-95); MPV 10.8 fL (8.0-11.0); Platelet Count 271 10^3/uL (130-400); RBC 4.53 10^6/uL (4.36-5.78); RDW 11.9 % (11.8-14.1); RDW-SD 41.8 fL; WBC 5.80 10^3/uL (4.4-10.8)
[2025-06-01] MEDS: Apixaban 5 MG TAB 10 MG PO (14:20)
[2025-06-01] MEDS: oxyCODONE 5 mg/Acetaminophen 325 mg TAB 1 TAB PO (14:21)
[2025-06-01 14:50] LABS: ALT 62 U/L (16-63); AST 44 U/L (15-37); Albumin 4.4 g/dL (3.4-5.0); Alkaline Phosphatase 111 U/L (46-116); Anion Gap 7.2 mmol/L (3-11); BUN 19 mg/dL (7-18); Bilirubin, Total 0.2 mg/dL (0.2-1.0); CO2 30.8 mmol/L (21.0-32.0); Calcium 9.4 mg/dL (8.5-10.1); Chloride 103 mmol/L (98-107); Estimated GFR 111.22 (mL/min/1.73m2); Glucose 120 mg/dL (74-106); NT-proBNP 23 pg/mL (<300); Potassium 4.4 mmol/L (3.5-5.1); Sodium 141 mmol/L (136-145); Total Protein 8.2 g/dL (6.4-8.2); Troponin I 4 ng/L (<or=76)
[2025-06-01 15:06] VITALS: BP 129/86; PULSE 71; RESP 18; TEMP 36.7; O2SAT 94
== END 2025-06-01 15:06 ==
PROVIDERS: Emergency Provider General Practice
DX: I82.412 Acute embolism and thrombosis of left femoral vein (principal); M79.605 Pain in left leg; R20.2 Paresthesia of skin
CPT/HCPCS: 99284; 99285; 80053; 93005; 71046; 83880; 84484; 85025; 93010; 93971

== ENCOUNTER 2025-10-02 10:35 | Emergency (ER) | payer OTHER, SELFPAY ==
[2025-10-02] VITALS (14 sets, daily range): BP systolic 122–191; BP diastolic 43–125; PULSE 83–109; RESP 16–22; TEMP 36.3–36.8; O2SAT 98–100
--- NOTE | 2025-10-02 10:30 | DI.CT_ITS ---
Exam(s) CT HEAD WO EXAM: CT HEAD WO CLINICAL HISTORY: ? Seizure. TECHNIQUE: Imaging Protocol: Axial computed tomography images with coronal and sagittal reformatted images were created and reviewed COMPARISON: CT CT HEAD WO from 05/08/2024 FINDINGS: Ventricles and Extra axial spaces: Normal in size and morphology for the patient's age. Hemorrhage: None. Cerebral parenchyma: There is an area of decreased attenuation in the posterior aspect of the left cerebellum. This may represent an area of encephalomalacia. There is no mass effect. This was not present on the prior examination. Midline shift: None. Brainstem/Cerebellum: Normal. Calvarium: Normal. Visualized Paranasal sinuses/Mastoids: Clear. Soft Tissues: Unremarkable. IMPRESSION: New area of decreased attenuation in the posterior aspect of the left cerebellum. This may represent an area of encephalomalacia. Further evaluation with a postcontrast CT scan or MRI is recommended for further characterization. RADIATION DOSE DELIVERED: 884.84mGy.cm Total DLP DATA REPOSITORY: All CT scans at this facility are submitted to the National Radiology Data Registry (NRDR) Dose Index Registry (DIR) with the [employer] (ACR). RADIATION OPTIMIZATION: All CT scans at this facility use at least one of these dose optimization techniques: automated exposure control; mA and/or kV adjustment per patient size (includes targeted exams where dose is matched to clinical indication); or iterative reconstruction.
[2025-10-02 10:58] LABS: Abs Immature Grans 0.02 10^3/uL (0.0-0.06); HCT 47.5 % (40.0-50.0); HGB 16.2 g/dL (13.5-17.5); Immature Grans % 0.2 %; MCH 31.8 pg (27.0-33.0); MCHC 34.1 % (32.0-36.0); MCV 93 fL (80-95); MPV 10.1 fL (8.0-11.0); Platelet Count 384 10^3/uL (130-400); RBC 5.09 10^6/uL (4.36-5.78); RDW 11.7 % (11.8-14.1); RDW-SD 40.0 fL; WBC 8.80 10^3/uL (4.4-10.8)
[2025-10-02 11:14] LABS: Anion Gap 9.3 mmol/L (3-11); BUN 10 mg/dL (9-23); CO2 24.7 mmol/L (20.0-31.0); Calcium 9.4 mg/dL (8.3-10.6); Chloride 109 mmol/L (98-107); Glucose 108 mg/dL (74-106); Potassium 3.7 mmol/L (3.5-5.1); Sodium 143 mmol/L (136-145)
--- NOTE | 2025-10-02 11:23 | ED.GENADUL_ITS ---
Discharge Plan Disposition Patient Disposition: Home Discharge Details Clinical Impression: Open wound of right wrist, Convulsions, Encephalomalacia on imaging study, Opiate use, Alcohol use Primary Care Provider: Unknown,Unknown ED Provider: Benito Gibson Home Meds and New Rx's Prescriptions: Continued latanoprost 0.005 % drops 1 drp ophthalmic (eye) DAILY timolol [Betimol] 0.5 % drops 1 drp ophthalmic (eye) BID brimonidine 0.1 % drops 1 drp ophthalmic (eye) Q8H chlordiazepoxide 25 mg tablet 25 mg PO DAILY buprenorphine-naloxone [Suboxone] 8-2 mg film 1 film sublingual DAILY acetaminophen 500 mg capsule 1,000 mg PO TID PRN PRNQty: 60 0RF Discharge Instructions Additional Instructions: You are seen in the emergency department for your convulsions. Your MRI showed that you may have remotely had a stroke in the past. Your blood work showed no sign of heart attack. Your kidneys are working well. As we discussed if you develop any nausea or vomiting that does not stop or if you have any other concerns please return to the emergency department. Otherwise please follow-up with your primary care provider. Stand Alone Forms: Portal Information HPI General Date/Time Provider Initiated Documentation: 10/02/25 10:38 . HPI Narrative: MDM This is an overall well-appearing normothermic and not tachycardic 45-year-old male history of alcohol use and reported prehospital convulsions. Patient quite well-appearing. He was not postictal and denies any tongue biting or loss of bowel or bladder control making my suspicion lower for seizure. As result I did not feel he requires antiseizure medications. He does have an occipital right- sided scalp bruise so we will obtain CT head. Will assess electrolytes and ECG to assess for dysrhythmia. Patient appears well-hydrated however will assess for any acute electrolyte abnormalities. No chest pain to suggest ACS I did not obtain troponin. No cough to suggest pneumonia. Patient does have some healing chronic appearing wounds to his nondominant right wrist. No fluctuance to suggest abscess. No significant erythema to suggest cellulitis. There is no signs of any superinfection so we will defer antibiotics. I considered sepsis however patient has reassuring vital signs. Given 2-1/2 days since ethanol we will continue treating with chlordiazepoxide at 50 mg. 11:22 AM CBC lacks anemia thrombocytopenia and leukocytosis. Basic metabolic panel shows no MICHAEL. No hypoglycemia. No anion gap. His lack of anion gap is reassuring against acute seizure. 3 PM Patient had 2 undetectable troponins. He underwent brain MRI. His COWS score was 15 and his CIWA score was 16. Patient had multiple episodes of generalized convulsions in the emergency department. Each time he was immediately oriented afterwards following commands. He did not lose control of his bowels or january dder. He did not bite his tongue. 3:40 PM Patient underwent an MRI which showed small area of encephalomalacia in the posterior left temporal lobe. His MRI also showed chronic microvascular disease . It certainly could be possible that he remotely had a stroke. I am not suspicious for acute CVA at the moment. I do not think that the small area of encephalomalacia is related to the patient's convulsions in the ED. he has never been postictal and immediately following his convulsions he follows commands. As result I do not feel he requires transfer for EEG. Nor do I think he requires a neurology consultation. Given that had his has been nearly 72 hours since the patient's last drink at this point suspicion for acute ethanol withdrawal is low. Patient is intermittently agitated and his most recent CIWA score was 13. His COWS score was 10 for which I treated him with 8 mg buprenorphine/naloxone. He has been getting 4 mg buprenorphine naloxone at the long term. He has also been getting 50 mg of chlordiazepoxide 3 times a day. He received a total of 75 mg of chlordiazepoxide in the emergency department. Diagnostic interpretations performed by me: Per my independent interpretation EKG shows: Sinus tachycardia rate of 102. Normal axis. Interventricular conduction delay. QTc and [place] within normal limits. No acute ST segment abnormalities. Significant artifact aVF. Left lateral T wave more prominent compared to prior dated earlier this year. HPI This is a male with a history of seizures during detoxification presenting with convulsions. History provided by EMS. The patient experienced a seizure in the back of the ambulance, which lasted about 15 to 20 seconds. He was immediately awake, alert, and oriented afterward. His vital signs were stable, but blood glucose levels were not assessed. He received 25 mg of Librium at 5 AM today and Suboxone. The patient reports his last alcohol consumption was on Thursday afternoon, approximately 2.5 days ago. Prior to this, he was consuming half a gallon of alcohol and a case of beer daily. He has a history of seizures during detoxification, with four episodes occurring in the past. He has been incarcerated for the past 3 days and has not been administered any anti-seizure medications. He sustained a head injury while incarcerated and reports no oral lacerations but admits to tongue biting during severe seizures. He also reports loss of bowel and bladder control. The patient is currently on methadone every other day for opioid withdrawal, which he procures from the street. He reports experiencing abdominal pain, lower back pain, restlessness in his legs and arms, and head pain due to a recent fall. Exam General: Well-appearing in no acute distress speaking in complete sentences. Head: Normocephalic, atraumatic. Eye:[Pupils equal, round reactive to light.] Extraocular eye movements intact. No conjunctival injection. No scleral icterus. Ear, nose, mouth, throat: Grossly normal inspection. Normal voice, handling secretions normally. Neck: Trachea midline. No nuchal rigidity. Cardiovascular: Well-perfused distal extremities. Regular rate and rhythm. Respiratory: Nonlabored respiration. Clear lungs bilaterally. Gastrointestinal: Nondistended abdomen. Musculoskeletal: No edema. Moving all 4 extremities spontaneously. Right wrist has chronic appearing healing ulcerated areas on the dorsal and ulnar surfaces. No significant surrounding erythema. No fluctuance. Skin: Normal for age and race, grossly normal temperature and turgor. No acute rash. Neurologic: Alert and appropriate, no apparent acute deficits. GCS 15. Related Data Home Medications ?Medication ?Instructions ?Recorded ?Confirmed brimonidine 0.1 % eye drops 1 drp ophthalmic (eye) Q8H 05/08/24 10/02/25 latanoprost 0.005 % eye drops 1 drp ophthalmic (eye) D AILY 05/08/24 10/02/25 timolol 0.5 % eye drops (Betimol) 1 drp ophthalmic (ey e) BID 05/08/24 10/02/25 chlordiazepoxide 25 mg tablet 25 mg PO DAILY 05/12/25 10/02/25 buprenorphine 8 mg-naloxone 2 mg 1 film sublingual DANYA LY 05/19/25 10/02/25 sublingual film (Suboxone) acetaminophen 500 mg capsule 1,000 mg (2 x 500 mg) PO TID PRN 06/01/25 10/02/25 PRN #60 caps Previous Rx's ?Medication ?Instructions ?Recorded acetaminophen 500 mg capsule 1,000 mg (2 x 500 mg) PO TID PRN 06/01/25 PRN #60 caps Allergies Allergy/AdvReac Type Severity Reaction Status Date / Time No Known Allergies Allergy Unverified 10/02/25 10:44 General Stated Complaint: Seizure VALENTE: 3 Course Vital Signs Vital signs: Vital Signs Temperature 36.8 C 10/02/25 10:37 Pulse 94 H 10/02/25 10:37 Respiratory Rate 18 10/02/25 10:37 Blood Pressure 191/125 H 10/02/25 10:37 Pulse Oximetry 100 10/02/25 10:37 Temperature 36.8 C 10/02/25 10:37 Temperature Source Tympanic 10/02/25 10:37 Pulse 94 H 10/02/25 10:37 Respiratory Rate 18 10/02/25 10:37 Blood Pressure 191/125 H 10/02/25 10:37 Blood Pressure Position Sitting 10/02/25 10:37 Pulse Oximetry 100 10/02/25 10:37 Oxygen Delivery Method Room Air 10/02/25 10:37 Oxygen Flow Rate 0 10/02/25 10:37 Lab/Test Results Lab/Test Results: Laboratory Tests Range/Units 10/02/25 10:51 WBC (4.4-10.8) 10^3/uL 8.80 RBC (4.36-5.78) 10^6/uL 5.09 Hgb (13.5-17.5) g/dL 16.2 Hct (40.0-50.0) % 47.5 MCV (80-95) fL 93 MCH (27.0-33.0) pg 31.8 MCHC (32.0-36.0) % 34.1 RDW (11.8-14.1) % 11.7 L Plt Count (130-400) 10^3/uL 384 MPV (8.0-11.0) fL 10.1 Immature Gran % % 0.2 Neutrophils % % 71.9 Lymphocytes % % 17.8 Monocytes % % 8.6 Eosinophils % % 0.9 Basophils % % 0.6 Nucleated RBC % (0.0-0.3) % 0.0 Absolute Neutrophils (1.2-6.7) 10^3/uL 6.32 Absolute Lymphocytes (1.2-3.4) 10^3/uL 1.57 Absolute Monocytes (0.1-0.8) 10^3/uL 0.76 Absolute Eosinophils (0.0-0.7) 10^3/uL 0.08 Absolute Basophils (0.0-0.2) 10^3/uL 0.05 Sodium (136-145) mmol/L 143 Potassium (3.5-5.1) mmol/L 3.7 Chloride (98-107) mmol/L 109 H Carbon Dioxide (20.0-31.0) mmol/L 24.7 Anion Gap (3-11) mmol/L 9.3 BUN (9-23) mg/dL 10 Creatinine (0.73-1.18) mg/dL 0.70 L Est GFR (CKD-EPI 2020) (mL/min/1.73m2) 121.59 Glucose (74-106) mg/dL 108 H Calcium (8.3-10.6) mg/dL 9.4 PFSH All Active Problems (Updated 10/02/25 @ 15:49 by Benito Gibson MD) Alcohol use (Acute) Opiate use (Acute) Encephalomalacia on imaging study (Acute) Convulsions (Acute) Open wound of right wrist (Acute) Social History Smoking/Tobacco Use Status: Former Tobacco Use Smoking risk assessment performed?: Yes Alcohol Intake: current Alcohol Intake frequency: 3 or more drinks per day Drug use: Daily Substance use type: marijuana and crack/cocaine Housing: other Additional Social history: correctional facility.
--- NOTE | 2025-10-02 11:30 | RT.EKG_ITS ---
APPROVED REPORT Exam: Resting ECG Reason for Exam: Convulsions Patient Location: E HR:102 bpm ECG Measurements Heart Rate 102 AXIS CA 146 P 74 QRSd 110 QRS 138 QT 361 T 53 QTc 471 Conclusion Sinus tachycardia...rate> 99 Right atrial enlargement...P>0.25mV 2 lds or<-0.24mV aVR/aVL Right axis deviation...QRS axis (100,269) ST elevation, consider inferior injury...ST >0.08mV, II III aVF No Occlusion [place]
[2025-10-02] MEDS: chlordiazePOXIDE 25 MG CAP 50 MG PO (11:50)
[2025-10-02] MEDS: Normal Saline 500 ML IV (12:17)
--- NOTE | 2025-10-02 13:00 | DI.MRI_ITS ---
Exam(s) MR BRAIN WO EXAM: MR BRAIN WO CLINICAL HISTORY: Abnormal CT TECHNIQUE: Multiplanar multisequence MRI of the brain was performed. COMPARISON: CT CT HEAD WO from 05/08/[address] HEAD WO from 10/02/2025 FINDINGS: VENTRICLES AND EXTRA AXIAL SPACES: Normal in size and morphology for the patient's age. MIDLINE SHIFT: None. CEREBRAL PARENCHYMA: No focus of restricted diffusion to suggest acute infarct. No space-occupying lesion identified. Mild atrophy consistent with the patient's age. Mild scattered foci of high signal in the white matter consistent with sequela of chronic microvascular disease. BRAINSTEM/CEREBELLUM: There is a small small wedge-shaped area decreased attenuation seen in the posterior aspect of the left cerebellum. There is no associated diffusion restriction. Findings are consistent with a small area of encephalomalacia. VISUALIZED PARANASAL SINUSES: Clear. MASTOIDS:Clear. Vasculature: Normal flow void. PITUITARY GLAND: Unremarkable. ORBITS: Unremarkable. IMPRESSION: Small area of encephalomalacia in the posterior left temporal lobe. No acute abnormality DATA REPOSITORY:
[2025-10-02 14:22] LABS: Troponin I < 3 ng/L (<54)
[2025-10-02] MEDS: Midazolam 2 MG/2 ML VIAL IVP (14:34)
[2025-10-02 14:40] LABS: Troponin I < 3 ng/L (<54)
[2025-10-02] MEDS: Buprenorphine/Naloxone 8 mg/2 mg FILM 1 EACH SL (15:24)
[2025-10-02] MEDS: chlordiazePOXIDE 25 MG CAP PO (15:33)
--- NOTE | 2025-10-02 16:23 | NUR.NOTE ---
Prior to D/C, pt began shaking and was lowered to the floor by DOC staff and began shaking/convulsing on the floor. Pt was shaking/convulsing for approximately 30 seconds before stopping, opening his eyes, and immediately began conversing with staff. Pt was immediately able to converse with staff and was alert and oriented to baseline. Pt did not hit his head and did not sustain any injury during episode. Episode witnessed by Dr. Stu MD and determined that pt did not have a seizure and sustained no injury. approved pt to be D/C'd back to correctional facility as planned.
[2025-10-02 17:44] LABS: Lab Add On Test DONE
--- NOTE | 2025-10-04 14:13 | ED.GENADUL_ITS ---
Discharge Plan Disposition Patient Disposition: Home Discharge Details Clinical Impression: Open wound of right wrist, Convulsions, Encephalomalacia on imaging study, Opiate use, Alcohol use Primary Care Provider: Unknown,Unknown ED Provider: Benito Gibson Home Meds and New Rx's Prescriptions: Continued chlordiazepoxide 25 mg tablet 25 mg PO DAILY buprenorphine-naloxone [Suboxone] 8-2 mg film 1 film sublingual DAILY Discharge Instructions Additional Instructions: You are seen in the emergency department for your convulsions. Your MRI showed that you may have remotely had a stroke in the past. Your blood work showed no sign of heart attack. Your kidneys are working well. As we discussed if you develop any nausea or vomiting that does not stop or if you have any other concerns please return to the emergency department. Otherwise please follow-up with your primary care provider. Stand Alone Forms: Portal Information Discharge Data Discharge Date/Time-TO BE ENTERED AT DEPARTURE: 10/02/25 16:31 HPI General Date/Time Provider Initiated Documentation: 10/02/25 10:38 . Related Data Home Medications ?Medication ?Instructions ?Recorded ?Confirmed chlordiazepoxide 25 mg tablet 25 mg PO DAILY 05/12/25 10/03/25 buprenorphine 8 mg-naloxone 2 mg 1 film sublingual DANYA LY 05/19/25 10/03/25 sublingual film (Suboxone) Allergies Allergy/AdvReac Type Severity Reaction Status Date / Time No Known Allergies Allergy Unverified 10/02/25 10:44 General Stated Complaint: Seizure VALENTE: 3 Course Vital Signs Vital signs: Vital Signs Temperature 36.8 C 10/02/25 10:37 Pulse 94 H 10/02/25 10:37 Respiratory Rate 18 10/02/25 10:37 Blood Pressure 191/125 H 10/02/25 10:37 Pulse Oximetry 100 10/02/25 10:37 Temperature 36.3 C L 10/02/25 16:20 Temperature Source Oral 10/02/25 13:16 Pulse 94 H 10/02/25 16:20 Pulse 94 H 10/02/25 13:00 Respiratory Rate 16 10/02/25 16:20 Respiratory Effort Normal 10/02/25 11:45 Respiratory Depth Normal 10/02/25 13:16 Respiratory Pattern Normal 10/02/25 15:19 Blood Pressure 186/92 H 10/02/25 16:20 Blood Pressure Mean 123 10/02/25 15:31 Blood Pressure Position Supine 12/15/25 13:16 Pulse Oximetry 98 10/02/25 16:20 Oxygen Delivery Method Room Air 10/02/25 15:31 Oxygen Flow Rate 0 10/02/25 15:31 Pain Level 8 10/02/25 15:31 Lab/Test Results Lab/Test Results: Laboratory Tests Range/Units 10/02/25 10/02/25 10:51 13:40 WBC (4.4-10.8) 10^3/uL 8.80 RBC (4.36-5.78) 10^6/uL 5.09 Hgb (13.5-17.5) g/dL 16.2 Hct (40.0-50.0) % 47.5 MCV (80-95) fL 93 MCH (27.0-33.0) pg 31.8 MCHC (32.0-36.0) % 34.1 RDW (11.8-14.1) % 11.7 L Plt Count (130-400) 10^3/uL 384 MPV (8.0-11.0) fL 10.1 Immature Gran % % 0.2 Neutrophils % % 71.9 Lymphocytes % % 17.8 Monocytes % % 8.6 Eosinophils % % 0.9 Basophils % % 0.6 Nucleated RBC % (0.0-0.3) % 0.0 Absolute Neutrophils (1.2-6.7) 10^3/uL 6.32 Absolute Lymphocytes (1.2-3.4) 10^3/uL 1.57 Absolute Monocytes (0.1-0.8) 10^3/uL 0.76 Absolute Eosinophils (0.0-0.7) 10^3/uL 0.08 Absolute Basophils (0.0-0.2) 10^3/uL 0.05 Sodium (136-145) mmol/L 143 Potassium (3.5-5.1) mmol/L 3.7 Chloride (98-107) mmol/L 109 H Carbon Dioxide (20.0-31.0) mmol/L 24.7 Anion Gap (3-11) mmol/L 9.3 BUN (9-23) mg/dL 10 Creatinine (0.73-1.18) mg/dL 0.70 L Est GFR (CKD-EPI 2020) (mL/min/1.73m2) 121.59 Glucose (74-106) mg/dL 108 H Calcium (8.3-10.6) mg/dL 9.4 Troponin I (<54) ng/L < 3 < 3 Add-On Test Request DONE Medical Decision Making Quality:SDOH Health Related Social Needs: Health related social needs material hardship Health related social needs details none PFSH All Active Problems (Updated 10/03/25 @ 06:25 by Elvis Cintron) Glaucoma (Chronic) DVT (deep venous thrombosis) (Chronic) Alcohol withdrawal (Acute) Opioid use disorder, severe, on maintenance therapy, dependence (Chronic) Alcoholism with alcohol dependence (Chronic) Alcohol withdrawal syndrome with perceptual disturbance (Acute) Alcohol use (Acute) Opiate use (Acute) Encephalomalacia on imaging study (Acute) Convulsions (Acute) Open wound of right wrist (Acute) Social History Smoking/Tobacco Use Status: Former Tobacco Use Smoking risk assessment performed?: Yes Alcohol Intake: current Alcohol Intake frequency: 3 or more drinks per day Drug use: Daily Substance use type: marijuana and crack/cocaine Details: pt states last drink was either Thursday morning or Thursday morning Housing: house Additional Social history: correctional facility. PAWSS Have you Been Recently Intoxicated or Drunk Within the Last 30 days?: Yes Have you Ever Experienced Previous Episodes of Alcohol Withdrawal?: Yes Have you ever Experienced Withdrawal Seizures?: Yes Have you ever Experienced Delirium Tremens(DT)s?: Yes Have you ever undergone Alcohol Rehabilitation Treatment (i.e, inpt ot outpatient treatment programs)?: Yes Have you ever Experienced Blackouts?: Yes Have you ever Combined Alcohol with other Downers within the last 90 days?: Yes Have you ever Combined Alcohol with any other Substance of Abuse during the last 90 days?: Yes Positive Blood Alcohol level on Presentation? [PCS.BAL]: No Evidence of Increased Autonomic Activity (i.e. HR>120, tremor, sweating, agitation, nausea)?: Yes Result: 9
== END 2025-10-02 16:31 | disposition home or self-care (01) ==
PROVIDERS: Emergency Provider Emergency Medicine
DX: G93.89 Other specified disorders of brain; F11.90 Opioid use, unspecified, uncomplicated; F10.90 Alcohol use, unspecified, uncomplicated; S61.501A Unspecified open wound of right wrist, initial encounter; R56.9 Unspecified convulsions; X58.XXXA Exposure to other specified factors, initial encounter
CPT/HCPCS: 36415; 36416; 80048; 82962; 93005; 96361; 96374; 99285; 70450; 70551; 84484; 85025; 93010; J2250

== ENCOUNTER 2025-10-02 20:38 | Inpatient (IN) | payer MEDICAID, SELFPAY ==
[2025-10-02 20:36] VITALS: BP 170/118; PULSE 94; RESP 18; TEMP 36.3; O2SAT 96
--- NOTE | 2025-10-02 20:45 | DI.RAD_ITS ---
Exam(s) XR CHEST 2V PA LATERAL EXAM: XR CHEST 2V PA LATERAL CLINICAL HISTORY: Chest pain TECHNIQUE: 2D digital imaging was performed of the chest. Two images were obtained. PA and lateral views were obtained. COMPARISON: CR,XR XR CHEST 2V PA LATERAL from 05/08/2024 CR XR CHEST 2V PA LATERAL from 06/01/2025 FINDINGS: MEDIASTINUM: Normal. HEART: Normal. PULMONARY VASCULATURE: Normal. LUNGS: Clear. PLEURAL SPACE: No pleural effusion or pneumothorax. BONE:Within normal limits for the patient's age. OTHER FINDINGS:Normal. IMPRESSION: 1. No acute pulmonary findings. 2. The preliminary [facility] report was reviewed. DATA REPOSITORY: RADIATION DOSE DELIVERED:
--- NOTE | 2025-10-02 20:45 | RT.EKG_ITS ---
APPROVED REPORT Exam: Resting ECG Reason for Exam: CP Patient Location: E HR:97 bpm ECG Measurements Heart Rate 97 AXIS UT 149 P 71 QRSd 107 QRS 132 QT 362 T 53 QTc 460 Conclusion Sinus rhythm, rate 97 No interval abnormalities No STEMI, borderline ST elevation <1mm unchanged from prior
--- NOTE | 2025-10-02 20:45 | DI.CT_ITS ---
Exam(s) CT HEAD CERVICAL SPINE WO EXAM: CT HEAD CERVICAL SPINE WO CLINICAL HISTORY: fall, head strike. TECHNIQUE: Imaging Protocol: Axial computed tomography images with coronal and sagittal reformatted images were created and reviewed COMPARISON: CT CT HEAD WO from 05/08/[address] HEAD WO from 10/02/2025 FINDINGS: CT Head: Ventricles and Extra axial spaces: Normal in size and morphology for the patient's age. Hemorrhage: None. Cerebral parenchyma: There is again seen an area of decreased attenuation in the posterior aspect of the left cerebellum not present on the examination from 05/08/2024. Further evaluation may be obtained with an MRI. There is no evidence of an acute territorial infarct or mass effect. Midline shift: None. Brainstem/Cerebellum: Normal. Calvarium: Normal. Visualized Paranasal sinuses/Mastoids: Clear. Soft Tissues: There is mild soft tissue swelling of the scalp overlying the right parietal bone. CT Cervical Spine: Bones: No acute fracture or subluxation. 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 Soft Tissues: Unremarkable. Lung Apices: Mild emphysematous changes are seen in the lung apices. IMPRESSION: 1. No acute intracranial process. 2. No acute fracture or subluxation in the cervical spine. 3. The preliminary [facility] report was reviewed. RADIATION DOSE DELIVERED: 1,207.64mGy.cm Total DLP DATA REPOSITORY: All CT scans at this facility are submitted to the National Radiology Data Registry (NRDR) Dose Index Registry (DIR) with the [employer] (ACR). RADIATION OPTIMIZATION: All CT scans at this facility use at least one of these dose optimization techniques: automated exposure control; mA and/or kV adjustment per patient size (includes targeted exams where dose is matched to clinical indication); or iterative reconstruction.
--- NOTE | 2025-10-02 20:58 | ED.GENADUL_ITS ---
Discharge Plan Disposition Patient Disposition: Admit to [facility] Condition: Stable Discharge Details Clinical Impression: Alcohol withdrawal syndrome with perceptual disturbance, Convulsions Primary Care Provider: Unknown,Unknown ED Provider: Maricarmen Cage Home Meds and New Rx's Prescriptions: No Action latanoprost 0.005 % drops 1 drp ophthalmic (eye) DAILY timolol [Betimol] 0.5 % drops 1 drp ophthalmic (eye) BID brimonidine 0.1 % drops 1 drp ophthalmic (eye) Q8H chlordiazepoxide 25 mg tablet 25 mg PO DAILY buprenorphine-naloxone [Suboxone] 8-2 mg film 1 film sublingual DAILY acetaminophen 500 mg capsule 1,000 mg PO TID PRN PRNQty: 60 0RF HPI General Mode of arrival: EMS . Date/Time Provider Initiated Documentation: 10/02/25 20:43 . Limitations to Documentation: no limitations . Information obtained by: patient, police, EMS and old records reviewed . HPI Narrative: This is a 45-year-old male patient presenting for reevaluation, was seen in our emergency department earlier with convulsive episodes, alcohol and opiate withdrawal. He had a full physical evaluation, received Suboxone and Librium for treatment of his withdrawal episodes, his convulsions were short and not followed by any postictal period, and were not concerning for seizure. He had brain MRI imaging including a CT and an MRI that did not show any acute abnormalities, though he did have an area of encephalomalacia that may represent a an old stroke. The patient reports that he returned to the corrections facility, and experienced more episodes of convulsions, states that he struck his head, is c ontinuing to experience body wide pain. He was brought in by EMS in a c-collar given a complaint for generalized neck pain. He states that he is having chest pain all across his chest, requests pain medications for these complaints. Please see the prior provider's note for a full detailed history of the initial events that brought him to the hospital during his index visit. Related Data Home Medications ?Medication ?Instructions ?Recorded ?Confirmed brimonidine 0.1 % eye drops 1 drp ophthalmic (eye) Q8H 05/08/24 10/02/25 latanoprost 0.005 % eye drops 1 drp ophthalmic (eye) D AILY 05/08/24 10/02/25 timolol 0.5 % eye drops (Betimol) 1 drp ophthalmic (ey e) BID 05/08/24 10/02/25 chlordiazepoxide 25 mg tablet 25 mg PO DAILY 05/12/25 10/02/25 buprenorphine 8 mg-naloxone 2 mg 1 film sublingual DANYA LY 05/19/25 10/02/25 sublingual film (Suboxone) acetaminophen 500 mg capsule 1,000 mg (2 x 500 mg) PO TID PRN 06/01/25 10/02/25 PRN #60 caps Previous Rx's ?Medication ?Instructions ?Recorded acetaminophen 500 mg capsule 1,000 mg (2 x 500 mg) PO TID PRN 06/01/25 PRN #60 caps Allergies Allergy/AdvReac Type Severity Reaction Status Date / Time No Known Allergies Allergy Unverified 10/02/25 10:44 General Stated Complaint: Recheck VALENTE: 3 Exam Narrative Exam Narrative: Gen: Awake and alert, in no apparent distress HEENT: Non-icteric sclera, PERRL, EOMs are full. Scalp with a small hematoma and no overlying skin breaks or lacerations to the right parietal scalp. Neck: Supple, moving his head about in the cervical collar, no midline C-spine step-offs, generalized neck tenderness is noted Lungs: No apparent respiratory distress, normal respiratory effort. Lung sounds clear and equal bilaterally without wheezes, rhonchi, rales CV: Appears well perfused, heart with regular rate and rhythm, strong distal pulses Abdomen: Non-distended, soft, nontender to palpation without rigidity, rebound, or guarding. MSK: Moves 4 extremities without apparent limitation in ROM. No peripheral edema. Right wrist bandaged after last visit Skin: Visualized skin without rashes, cyanosis. Neuro: Normal Gait, preserved strength and sensation bilaterally. Face symmetrical. Speaks in full, clear sentences. Psych: Appropriate for situation. Endorsing auditory hallucinations Course Vital Signs Vital signs: Vital Signs Temperature 36.3 C L 10/02/25 20:36 Pulse 94 H 10/02/25 20:36 Respiratory Rate 18 10/02/25 20:36 Blood Pressure 170/118 H 10/02/25 20:36 Pulse Oximetry 96 10/02/25 20:36 Temperature 36.3 C L 10/02/25 20:36 Temperature Source Oral 10/02/25 20:36 Pulse 94 H 10/02/25 20:36 Respiratory Rate 18 10/02/25 20:36 Blood Pressure 170/118 H 10/02/25 20:36 Blood Pressure Position Supine 10/02/25 20:36 Pulse Oximetry 96 10/02/25 20:36 Oxygen Delivery Method Room Air 10/02/25 20:36 Oxygen Flow Rate 0 10/02/25 20:36 Pain Level 10 10/02/25 20:36 Medical Decision Making This is a 45-year-old male patient presenting for evaluation of head strike, convulsions, and alcohol/opiate withdrawal. My differential includes but is not limited to injuries including intracranial hemorrhage, skull fracture, cervical spine fracture. I am reassured against severe spinal cord injury given that he is neuro intact. I considered alcohol withdrawal, initial CIWA score 16, patient endorsing a history of complicated withdrawal requiring phenobarbital administration in the past. The patient has not had any convulsive activity here in the emergency department and based on my read of the prior provider's report I have a very low concern for active seizure. Additionally it has been a pproximately 72 hours, and the patient should theoretically be approaching improvement in his alcohol withdrawal symptoms based on the timing. The patient has a slightly elevated COWS score to 12, consistent with mild opioid withdrawal, I have a low concern for acute intoxication. The patient's chest pain seems to be in the setting of generalized bodyaches, but I did consider ACS. The patient had 2 negative troponins during his last visit. We obtained a repeat EKG which shows a sinus rhythm without evidence of ischemia, interval abnormality, or ectopy, and is unchanged compared to the most recent prior. I did provide the patient with an 8 mg dose of Suboxone, I offered the patient Librium, which he has declined. We will obtain an x-ray of the chest, CT of the head and C-spine given his injury, and obtain labs to include CBC, CMP, magnesium, troponin. Will obtain a urinalysis and UDS. -I independently interpreted the laboratory studies, which show no significant leukocytosis, anemia, or thrombocytopenia. The chemistry panel is without evidence of electrolyte abnormality, kidney dysfunction, or liver injury. Lipase is low and the troponin is negative. Given that there has been no significant increase since the priors obtained by the last provider, and given the reassuring EKGs without dynamic ischemic changes I do not see indication to proceed with delta troponin readings. Urinalysis noninfectious, UDS positive for benzos, consistent with the reported history of Librium. CT scan of the brain and neck without acute traumatic injury, chest x-ray unremarkable. I had a brianna shared decision-making conversation with this patient. He is desiring of admission for phenobarbital given its success in the past. Given that this patient has bounced back with recurrent convulsive episodes, and given his new report of hallucinations concerning for DTs, I do feel that this is an unreasonable course of action, though certainly I do feel that there is some level of secondary gain given the patient's frequent request for the good stuff, a really strong pain medicine. He was not provided with any subsequent doses of Suboxone as he is appropriately treated for that withdrawal per our COWS protocol. I did not provide him with any narcotic pain medication as he is receiving Suboxone therapy. He has not had any subsequent epileptiform activity to warrant neuro consultation at this time nor antiseizure medications other than phenobarbital. The first weight-based dose of IV phenobarbital was provided to this patient, and I reached out to the hospitalist to discuss admission. He has graciously accepted this patient for ongoing management of his complicated alcohol withdrawal syndrome, the patient remained hemodynamically improved while under my care, cervical spine was clinically cleared after reassuring imaging. He was transferred from our department without incident. Maricarmen Cage MD [facility] All Active Problems (Updated 10/02/25 @ 23:28 by Maricarmen Cage MD) Alcohol withdrawal syndrome with perceptual disturbance (Acute) Alcohol use (Acute) Opiate use (Acute) Encephalomalacia on imaging study (Acute) Convulsions (Acute) Open wound of right wrist (Acute) Social History Smoking/Tobacco Use Status: Former Tobacco Use Smoking risk assessment performed?: Yes Alcohol Intake: current Alcohol Intake frequency: 3 or more drinks per day Drug use: Daily Substance use type: marijuana and crack/cocaine Details: pt states last drink was either Thursday morning or Thursday morning Housing: other Additional Social history: correctional facility.
[2025-10-02 21:04] LABS: Glucose Negative (Negative)
[2025-10-02 21:32] LABS: Cannabinoids THC Negative (Negative)
[2025-10-02 22:22] LABS: Abs Immature Grans 0.04 10^3/uL (0.0-0.06); HCT 43.2 % (40.0-50.0); HGB 14.9 g/dL (13.5-17.5); Immature Grans % 0.4 %; MCH 32.1 pg (27.0-33.0); MCHC 34.5 % (32.0-36.0); MCV 93 fL (80-95); MPV 10.2 fL (8.0-11.0); Platelet Count 367 10^3/uL (130-400); RBC 4.64 10^6/uL (4.36-5.78); RDW 11.8 % (11.8-14.1); RDW-SD 40.2 fL; WBC 10.21 10^3/uL (4.4-10.8)
[2025-10-02] MEDS: ACETAMINOPHEN 1,000 MG/100 ML BAG 400 MG IVPB (22:23)
[2025-10-02] MEDS: Buprenorphine/Naloxone 8 mg/2 mg FILM 1 EACH SL (22:23)
[2025-10-02] MEDS: Ondansetron 4 MG/2 ML VIAL IVP (22:23)
--- NOTE | 2025-10-02 22:29 | DI.VRAD_ITS ---
PROCEDURE INFORMATION: Exam: CT Head Without Contrast Exam date and time: 10/02/2025 9:50 PM Age: 45 years old Clinical indication: Injury or trauma; Blunt trauma (contusions or hematomas); Loss of consciousness unknown; Injury date: 10/02/25; Injury details: Fall, head strike TECHNIQUE: Imaging protocol: Computed tomography of the head without contrast. Radiation optimization: All CT scans at this facility use at least one of these dose optimization techniques: automated exposure control; mA and/or kV adjustment per patient size (includes targeted exams where dose is matched to clinical indication); or iterative reconstruction. COMPARISON: MR BRAIN WO 10/02/2025 2:52 PM FINDINGS: Brain: Mild volume loss No hemorrhage. Unremarkable white matter. No mass effect. Cerebral ventricles: No ventriculomegaly. Paranasal sinuses: Visualized sinuses are unremarkable. No fluid levels. Mastoid air cells: Visualized mastoid air cells are well aerated. Bones: Unremarkable. No acute fracture. Soft tissues: Unremarkable. IMPRESSION: No acute intracranial abnormality. PROCEDURE INFORMATION: Exam: CT Cervical Spine Without Contrast Exam date and time: 10/02/2025 9:50 PM Age: 45 years old Clinical indication: Injury or trauma; Blunt trauma (contusions or hematomas); Loss of consciousness unknown; Injury date: 10/02/25; Injury details: Fall, head strike TECHNIQUE: Imaging protocol: Computed tomography of the cervical spine without contrast. Radiation optimization: All CT scans at this facility use at least one of these dose optimization techniques: automated exposure control; mA and/or kV adjustment per patient size (includes targeted exams where dose is matched to clinical indication); or iterative reconstruction. COMPARISON: MR BRAIN WO 10/02/2025 2:52 PM FINDINGS: Bones: No acute fracture. Loss of cervical lordosis is presumably on a degenerative basis.No severe spinal canal stenosis. Severe foraminal stenosis at C6-C7. Moderate left foraminal stenosis at C5-C6. Lungs: Bullous changes in the right upper lobe Soft tissues: Unremarkable. IMPRESSION: No acute cervical spine fracture. Dictated and Authenticated by: Rajan Bailey MD. Orderin [facility] Darin Hernadez MD
[2025-10-02 22:38] LABS: Lipase 37 U/L (<53)
[2025-10-02 22:39] LABS: Magnesium 1.9 mg/dL (1.6-2.6)
[2025-10-02 22:40] LABS: ALT 23 U/L (10-49); AST 35 U/L (<34); Albumin 4.1 g/dL (3.2-5.0); Alkaline Phosphatase 147 U/L (46-116); Anion Gap 8.3 mmol/L (3-11); BUN 14 mg/dL (9-23); Bilirubin, Total 0.2 mg/dL (0.2-1.2); CO2 25.7 mmol/L (20.0-31.0); Calcium 9.3 mg/dL (8.3-10.6); Chloride 110 mmol/L (98-107); Glucose 109 mg/dL (74-106); Potassium 3.5 mmol/L (3.5-5.1); Sodium 144 mmol/L (136-145); Total Protein 7.4 g/dL (5.7-8.2); Troponin I 5 ng/L (<54)
--- NOTE | 2025-10-02 22:41 | DI.VRAD_ITS ---
PROCEDURE INFORMATION: Exam: XR Chest Exam date and time: 10/02/2025 9:57 PM Age: 45 years old Clinical indication: Chest pain TECHNIQUE: Imaging protocol: Radiologic exam of the chest. Views: 2 views. COMPARISON: CR XR CHEST 2V PA LATERAL 06/01/2025 1:54 PM FINDINGS: Lungs: Lungs are adequately inflated and symmetric. No focal consolidation or evidence of pulmonary edema. Pleural spaces: No pleural effusion. No pneumothorax. Heart/Mediastinum: Cardiomediastinal contours within normal limits. Bones/joints: No acute osseous finding. IMPRESSION: No acute findings. Dictated and Authenticated by: Madi Cobb MD. Orderin [facility] Darin Hernadez MD
[2025-10-02] MEDS: PHENobarbital 180 MG in Normal Saline 50 ML 100 MG IVPB (23:27)
--- NOTE | 2025-10-02 23:29 | HPE_ITS ---
Date of service: 10/02/25 Time of Service: 23:29 Assessment and Plan Assessment and plan (1) Alcohol withdrawal: Start date: 10/02/25 Status: Acute Assessment and plan: This 45-year-old gentleman with a history of severe outpatient alcohol abuse and polysubstance drug abuse now off medications for 3 days. He had initial exam in the ED on the day of admission and sent back to the present Librium thought to be more of a behavioral problem that alcohol or opioid withdrawal. He felt outpatient treatment with Librium and return to the ED claiming that he had convulsions though these appear to be somewhat behavioral abnormalities rather than true seizures early during his evaluation. Shortly after admission patient began to have severe alcohol withdrawal and became delirious and very agitated despite getting the soft saline of phenobarbital in a short time. Periorbital level was drawn and he will be maxed on the hard saline for phenobarbital with Ativan given 4 mg and Valium to be initiated for severe alcohol withdrawal. He has been transferred to the ICU and may require intubation if not responding to benzodiazepines with phenobarbital or if he has increased sedation with both. He has a full code. (2) Alcoholism with alcohol dependence: Status: Chronic Assessment and plan: Patient has little desire to quit alcohol but does want outpatient treatment at this time. He has recurrent issues. Insight is poor. (3) Opioid use disorder, severe, on maintenance therapy, dependence: Status: Chronic Assessment and plan: Patient is using as much IV and smoking of fentanyl, xylazine and cocaine as he can obtain on the street. He may have opioid withdrawal but has been initiated on Suboxone. Will avoid further narcotic therapy but since he has taken Neurontin on the street I will initiate Neurontin titrating up slowly if needed. This may not be an issue if he has severe alcohol withdrawal and is sedated. (4) DVT (deep venous thrombosis): Status: Chronic Assessment and plan: Event earlier in 2024 when hospitalized for alcohol withdrawal, this was provoked and he has completed treatment. There is no recurrent swelling. He is off Eliquis. (5) Glaucoma: Status: Chronic Assessment and plan: Continue outpatient eyedrops. History of Present Illness History of Present Illness Chief Complaint: Alcohol withdrawal with seizure-like activity and delirium. Narrative: This is a 45-year-old male patient with a long history of alcohol abuse drinking 1/2 to 1 gallon of hard liquor daily along with multiple beers as well as taking crack cocaine and IV xylazine with fentanyl as available. He is self treating chronic pain and also seeks Neurontin on the street having been on 2400 mg daily prescribed before. His other medical problems are, which she takes eyedrops. Recently he was incarcerated and has been 3 days without alcohol or IV/smoking drug abuse. He was seen in the ED earlier the day of admission and released back to the senior care on Librium. He was evaluated as not having true convulsions or seizures with no postictal episodes and not having severe delirium at that time. He returned with convulsive like activity in the presence again and striking his head and neck. He did complain of severe pain in the ED and wanted the good stuff for pain treatment with narcotics. As stated he is often heavy doses of narcotics as an outpatient with IV drug use as well as smoking. His urine drug screen showed benzodiazepines which was appropriate for his treatment with Librium in the ED and at the senior care. They are negative for cocaine. He would not screen for oxycodone or xylazine. He states his last drug use was 3 days ago. He has had severe alcohol withdrawal seizures in the past requiring sedation and intubation according to the guard. He was admitted to [facility] initially with not having severe withdrawal symptoms and phenobarb protocol at a lower dose. During his short stay on [facility] he began to have more severe alcohol withdrawal symptoms and get the soft ceiling rather quickly with a heart saline to be addressed after IV Ativan 4 mg given because of severe withdrawal symptoms with agitation and delirium with patient seeing things and hearing things and kicking around in the bed with 2 point restraint having handcuffs. He was at risk for harming himself and was being transferred to the ICU. He has required intubation in the past and is also sedated by acute severe alcohol withdrawal with Valium after receiving a maximum of phenobarbital, he may require intubation for airway protection. This decision can be made within the next hours. Patient is a full code. Review of Systems Narrative: 13 point review of systems otherwise unrevealing or stable. Patient does attempt to negotiate high-dose Neurontin and IV narcotic therapy for pain. Patient does have a history of significant DVT which was provoked in the left lower extremity on Eliquis earlier this year and now off after 6 months of treatment which was interrupted at 1 time because of incarceration. [facility] All Active Problems (Updated 10/03/25 @ 06:25 by Elvis Cintron) Glaucoma (Chronic) DVT (deep venous thrombosis) (Chronic) Alcohol withdrawal (Acute) Opioid use disorder, severe, on maintenance therapy, dependence (Chronic) Alcoholism with alcohol dependence (Chronic) Alcohol withdrawal syndrome with perceptual disturbance (Acute) Alcohol use (Acute) Opiate use (Acute) Encephalomalacia on imaging study (Acute) Convulsions (Acute) Open wound of right wrist (Acute) Social History Smoking/Tobacco Use Status: Former Tobacco Use Smoking risk assessment performed?: Yes Alcohol Intake: current Alcohol Intake frequency: 3 or more drinks per day Drug use: Daily Substance use type: marijuana and crack/cocaine Details: pt states last drink was either Thursday morning or Thursday morning Housing: house Additional Social history: correctional facility. Meds Allergies and Home Medications Allergies Allergy/AdvReac Type Severity Reaction Status Date / Time No Known Allergies Allergy Unverified 10/02/25 10:44 Home Medications ?Medication ?Instructions ?Recorded ?Confirmed ?Type brimonidine 0.1 % eye drops 1 drp ophthalmic (eye) Q8H 05/08/24 10/03/25 History Held on 10/03/25. Instructions: Pt Stopped/Never Started latanoprost 0.005 % eye drops 1 drp ophthalmic (eye) D AILY 05/08/24 10/03/25 History Held on 10/03/25. Instructions: Pt Stopped/Never Started timolol 0.5 % eye drops (Betimol) 1 drp ophthalmic (ey e) BID 05/08/24 10/03/25 History Held on 10/03/25. Instructions: Pt Stopped/Never Started chlordiazepoxide 25 mg tablet 25 mg PO DAILY 05/12/25 10/03/25 History buprenorphine 8 mg-naloxone 2 mg 1 film sublingual DANYA LY 05/19/25 10/03/25 History sublingual film (Suboxone) acetaminophen 500 mg capsule 1,000 mg (2 x 500 mg) PO TID PRN 06/01/25 10/03/25 Rx Held on 10/03/25. PRN #60 caps Instructions: Pt Stopped/Never Started Exam Narrative Exam Narrative: General: Patient appears older than stated age, initially during exam was alert and oriented x 3 but has admission progressed the patient became severely agitated not being oriented to person place or time and having visual and auditory hallucinations. Was restrained with handcuffs with his feet free kicking the baseboard of the bed. HEENT: Normocephalic, eyes with pupils equal and reactive to light symmetrically, extraocular movement tact with left eye slightly disconjugate and at times with a lateral gaze, sclera anicteric. Oropharynx with moist Koza and poor dentition with missing and carious teeth. Neck: Supple without JVD. Back: Normal posture without CVA tenderness. Lungs: Fair aeration and clear to auscultation percussion. No focalizing rales or rhonchi. No expiratory wheeze. Heart: Tachycardic rate with regular rhythm. No murmurs or gallops appreciated. Abdomen: Scaphoid contour, soft and nontender to palpation no palpable hepatosplenomegaly. Bowel sounds positive in all quadrants. Genitalia/rectal: Exam deferred. Extremities: No clubbing, cyanosis or pitting edema. Peripheral pulses intact. Skin: Unkempt but normal color, warm and dry. Neuro: Cranial nerves II through XII gross intact, no focalized motor deficits and no tremors. Patient is very strong with agitation. Psych: Delirious with auditory and visual hallucinations. Patient is screaming out and not responding to sedation. Earlier during interview he had slight agitation with depressed mood and was negotiating medications he wished to be treated with. Earlier he was also more oriented to at least person place and mostly time. Results Imaging Imaging Studies: Exam: XR Chest Exam date and time: 10/02/2025 9:57 PM Age: 45 years old Clinical indication: Chest pain TECHNIQUE: Imaging protocol: Radiologic exam of the chest. Views: 2 views. COMPARISON: CR XR CHEST 2V PA LATERAL 06/01/2025 1:54 PM FINDINGS: Lungs: Lungs are adequately inflated and symmetric. No focal consolidation or evidence of pulmonary edema. Pleural spaces: No pleural effusion. No pneumothorax. Heart/Mediastinum: Cardiomediastinal contours within normal limits. Bones/joints: No acute osseous finding. IMPRESSION: No acute findings. EXAM: MR BRAIN WO Date exam: 10/02/2025 CLINICAL HISTORY: Abnormal CT TECHNIQUE: Multiplanar multisequence MRI of the brain was performed. COMPARISON: CT CT HEAD WO from 05/08/[address] HEAD WO from 10/02/2025 FINDINGS: VENTRICLES AND EXTRA AXIAL SPACES: Normal in size and morphology for the patient's age. MIDLINE SHIFT: None. CEREBRAL PARENCHYMA: No focus of restricted diffusion to suggest acute infarct. No space-occupying lesion identified. Mild atrophy consistent with the patient's age. Mild scattered foci of high signal in the white matter consistent with sequela of chronic microvascular disease. BRAINSTEM/CEREBELLUM: There is a small small wedge-shaped area decreased attenuation seen in the posterior aspect of the left cerebellum. There is no associated diffusion restriction. Findings are consistent with a small area of encephalomalacia. VISUALIZED PARANASAL SINUSES: Clear. MASTOIDS:Clear. Vasculature: Normal flow void. PITUITARY GLAND: Unremarkable. ORBITS: Unremarkable. IMPRESSION: Small area of encephalomalacia in the posterior left temporal lobe. No acute abnormality Labs 10/02/25 22:13 10/02/25 22:13 Labs: Laboratory Results - last 24 hr 10/02/25 10/02/25 10/02/25 20:43 21:53 22:13 WBC 10.21 RBC 4.64 Hgb 14.9 Hct 43.2 MCV 93 MCH 32.1 MCHC 34.5 RDW 11.8 Plt Count 367 MPV 10.2 Immature Gran % 0.4 Neutrophils % 64.9 Lymphocytes % 25.1 Monocytes % 7.9 Eosinophils % 1.3 Basophils % 0.4 Nucleated RBC % 0.0 Absolute Neutrophils 6.63 Absolute Lymphocytes 2.56 Absolute Monocytes 0.81 H Absolute Eosinophils 0.13 Absolute Basophils 0.04 Sodium 144 Potassium 3.5 Chloride 110 H Carbon Dioxide 25.7 Anion Gap 8.3 BUN 14 Creatinine 0.81 Est GFR (CKD-EPI 2020) 102.74 Glucose 109 H Calcium 9.3 Magnesium 1.9 Total Bilirubin 0.2 AST 35 ALT 23 Alkaline Phosphatase 147 H Troponin I Cancelled 5 Total Protein 7.4 Albumin 4.1 Lipase 37 Urine Color Yellow Urine Clarity Clear Urine pH 6.5 Ur Specific [place] 1.010 Urine Protein Negative Urine Ketones Negative Urine Blood Negative Urine Nitrite Negative Urine Bilirubin Negative Urine Urobilinogen 0.2 Ur Leukocyte Esterase Negative Urine Glucose Negative Urine Opiates Screen Negative Urine Methadone Screen Negative Ur Barbiturates Screen Negative Ur Tricyclics Screen Negative Ur Amphetamines Screen Negative U Benzodiazepines Scrn Positive A Urine Cocaine Screen Negative U Cannabinoids Screen Negative 10/02/25 23:53 WBC RBC Hgb Hct MCV MCH MCHC RDW Plt Count MPV Immature Gran % Neutrophils % Lymphocytes % Monocytes % Eosinophils % Basophils % Nucleated RBC % Absolute Neutrophils Absolute Lymphocytes Absolute Monocytes Absolute Eosinophils Absolute Basophils Sodium Potassium Chloride Carbon Dioxide Anion Gap BUN Creatinine Est GFR (CKD-EPI 2020) Glucose Calcium Magnesium Total Bilirubin AST ALT Alkaline Phosphatase Troponin I Cancelled Total Protein Albumin Lipase Urine Color Urine Clarity Urine pH Ur Specific [place] Urine Protein Urine Ketones Urine Blood Urine Nitrite Urine Bilirubin Urine Urobilinogen Ur Leukocyte Esterase Urine Glucose Urine Opiates Screen Urine Methadone Screen Ur Barbiturates Screen Ur Tricyclics Screen Ur Amphetamines Screen U Benzodiazepines Scrn Urine Cocaine Screen U Cannabinoids Screen Last Vital Signs Temp 36.3 C L 10/02/25 20:36 Pulse 94 H 10/02/25 20:36 Resp 18 10/02/25 20:36 BP 170/118 H 10/02/25 20:36 Pulse Ox 96 10/02/25 20:36 VTE Prohylaxis Risk Level: Moderate/High Risk Contraindications: None Prophylaxis: Pharmacologic and Mechanical PAWSS Have you Been Recently Intoxicated or Drunk Within the Last 30 days?: Yes Have you Ever Experienced Previous Episodes of Alcohol Withdrawal?: Yes Have you ever Experienced Withdrawal Seizures?: Yes Have you ever Experienced Delirium Tremens(DT)s?: Yes Have you ever undergone Alcohol Rehabilitation Treatment (i.e, inpt ot outpatient treatment programs)?: Unable to Obtain Have you ever Experienced Blackouts?: Yes Have you ever Combined Alcohol with other Downers within the last 90 days?: Yes Have you ever Combined Alcohol with any other Substance of Abuse during the last 90 days?: Yes Positive Blood Alcohol level on Presentation? [PCS.BAL]: Unable to Obtain Evidence of Increased Autonomic Activity (i.e. HR>120, tremor, sweating, agitation, nausea)?: Yes Result: 8 Time Spent Time spent with Patient: >75 minutes Time was spent: preparing to see the patient(eg.review tests), obtaining and/or reviewing separately otained hiistory, ordering medications,tests, procedures, indepentently interpreting results, counseling the patient and care coordination
[2025-10-02 23:55] VITALS: PULSE 80; RESP 18
[2025-10-03] VITALS (78 sets, daily range): BP systolic 75–186; BP diastolic 55–120; PULSE 55–96; RESP 15–31; TEMP 36.2–37; O2SAT 89–100
--- NOTE | 2025-10-03 00:52 | W.PC.ACHO ---
Registration Status: REG ER Primary Language: Preferred Language: ED Information & Data Chief Complaint Recheck 10/02/25 21:15 Chief Complaint Recheck 10/02/25 20:58 Triage Note Recheck from earlier. BIBA - 10/02/25 20:36 c/o withdrawing from alcohol and opiates. has been vomiting, diarrhea, says he had 2 seizures and hit his head, pain now in his neck and chest. Collar in place on arrival. Most Recent Vital Signs Temperature 36.3 C L 10/02/25 20:36 Temperature Source Oral 10/02/25 20:36 Pulse 88 10/03/25 00:46 Pulse 87 10/03/25 00:46 Respiratory Rate 27 H 10/03/25 00:46 Respiratory Effort Normal, Non-Labored 10/03/25 00:30 Respiratory Depth Normal 10/03/25 00:30 Respiratory Pattern Normal 10/02/25 21:15 Blood Pressure 163/105 H 10/03/25 00:46 Blood Pressure Mean 125 10/03/25 00:46 Blood Pressure Position Supine 10/02/25 20:36 Pulse Oximetry 96 10/03/25 00:43 Oxygen Delivery Method Room Air 10/03/25 00:43 Oxygen Flow Rate 0 10/03/25 00:43 Pain Level 10 10/03/25 00:43 Allergies No Known Allergies Allergy (Unverified 10/02/25 10:44) Precautions Isolation Standard precaution 10/02/25 21:15 IV IV Catheter Type [Right Peripheral IV Antecubital] IV Catheter Gauge [Right 20 Antecubital] Diagnostics 10/02/25 10/02/25 10/02/25 Range/Units 23:53 22:13 21:53 WBC 10.21 (4.4-10.8) 10^3/uL RBC 4.64 (4.36-5.78) 10^6/uL Hgb 14.9 (13.5-17.5) g/dL Hct 43.2 (40.0-50.0) % MCV 93 (80-95) fL MCH 32.1 (27.0-33.0) pg MCHC 34.5 (32.0-36.0) % RDW 11.8 (11.8-14.1) % Plt Count 367 (130-400) 10^3/uL MPV 10.2 (8.0-11.0) fL Immature Gran % 0.4 % Neutrophils % 64.9 % Lymphocytes % 25.1 % Monocytes % 7.9 % Eosinophils % 1.3 % Basophils % 0.4 % Nucleated RBC % 0.0 (0.0-0.3) % Absolute Neutrophils 6.63 (1.2-6.7) 10^3/uL Absolute Lymphocytes 2.56 (1.2-3.4) 10^3/uL Absolute Monocytes 0.81 H (0.1-0.8) 10^3/uL Absolute Eosinophils 0.13 (0.0-0.7) 10^3/uL Absolute Basophils 0.04 (0.0-0.2) 10^3/uL Sodium 144 (136-145) mmol/L Potassium 3.5 (3.5-5.1) mmol/L Chloride 110 H (98-107) mmol/L Carbon Dioxide 25.7 (20.0-31.0) mmol/L Anion Gap 8.3 (3-11) mmol/L BUN 14 (9-23) mg/dL Creatinine 0.81 (0.73-1.18) mg/dL Est GFR (CKD-EPI 2020) 102.74 (mL/min/1.73m2) Glucose 109 H (74-106) mg/dL Calcium 9.3 (8.3-10.6) mg/dL Magnesium 1.9 (1.6-2.6) mg/dL Total Bilirubin 0.2 (0.2-1.2) mg/dL AST 35 (<34) U/L ALT 23 (10-49) U/L Alkaline Phosphatase 147 H (46-116) U/L Troponin I Cancelled 5 Cancelled Total Protein 7.4 (5.7-8.2) g/dL Albumin 4.1 (3.2-5.0) g/dL Lipase 37 (<53) U/L Urine Color (Yellow) Urine Clarity (Clear) Urine pH (5-8) Ur Specific [place] (1.005-1.025) Urine Protein (Neg-Trace) mg/dL Urine Ketones (Negative) mg/dL Urine Blood (Negative) Urine Nitrite (Negative) Urine Bilirubin (Negative) Urine Urobilinogen (Up to 0.2) mg/dL Ur Leukocyte Esterase (Negative) Urine Glucose (Negative) mg/dL Urine Opiates Screen (Negative) Urine Methadone Screen (Negative) Ur Barbiturates Screen (Negative) Ur Tricyclics Screen (Negative) Ur Amphetamines Screen (Negative) U Benzodiazepines Scrn (Negative) Urine Cocaine Screen (Negative) U Cannabinoids Screen (Negative) 10/02/25 Range/Units 20:43 WBC (4.4-10.8) 10^3/uL RBC (4.36-5.78) 10^6/uL Hgb (13.5-17.5) g/dL Hct (40.0-50.0) % MCV (80-95) fL MCH (27.0-33.0) pg MCHC (32.0-36.0) % RDW (11.8-14.1) % Plt Count (130-400) 10^3/uL MPV (8.0-11.0) fL Immature Gran % % Neutrophils % % Lymphocytes % % Monocytes % % Eosinophils % % Basophils % % Nucleated RBC % (0.0-0.3) % Absolute Neutrophils (1.2-6.7) 10^3/uL Absolute Lymphocytes (1.2-3.4) 10^3/uL Absolute Monocytes (0.1-0.8) 10^3/uL Absolute Eosinophils (0.0-0.7) 10^3/uL Absolute Basophils (0.0-0.2) 10^3/uL Sodium (136-145) mmol/L Potassium (3.5-5.1) mmol/L Chloride (98-107) mmol/L Carbon Dioxide (20.0-31.0) mmol/L Anion Gap (3-11) mmol/L BUN (9-23) mg/dL Creatinine (0.73-1.18) mg/dL Est GFR (CKD-EPI 2020) (mL/min/1.73m2) Glucose (74-106) mg/dL Calcium (8.3-10.6) mg/dL Magnesium (1.6-2.6) mg/dL Total Bilirubin (0.2-1.2) mg/dL AST (<34) U/L ALT (10-49) U/L Alkaline Phosphatase (46-116) U/L Troponin I Total Protein (5.7-8.2) g/dL Albumin (3.2-5.0) g/dL Lipase (<53) U/L Urine Color Yellow (Yellow) Urine Clarity Clear (Clear) Urine pH 6.5 (5-8) Ur Specific [place] 1.010 (1.005-1.025) Urine Protein Negative (Neg-Trace) mg/dL Urine Ketones Negative (Negative) mg/dL Urine Blood Negative (Negative) Urine Nitrite Negative (Negative) Urine Bilirubin Negative (Negative) Urine Urobilinogen 0.2 (Up to 0.2) mg/dL Ur Leukocyte Esterase Negative (Negative) Urine Glucose Negative (Negative) mg/dL Urine Opiates Screen Negative (Negative) Urine Methadone Screen Negative (Negative) Ur Barbiturates Screen Negative (Negative) Ur Tricyclics Screen Negative (Negative) Ur Amphetamines Screen Negative (Negative) U Benzodiazepines Scrn Positive A (Negative) Urine Cocaine Screen Negative (Negative) U Cannabinoids Screen Negative (Negative) Intake and Output - 24 Hour Total 10/02/25 20:24 thru 10/03/25 00:00 Intake Total 151.3846 Balance 151.3846 Weight 70.307 kg Intake: IV 151.3846 Falls Risk Assessment History of Falls Admit Due to Fall 10/02/25 21:10 Contributing Factors Unstable 10/02/25 21:10 Ambulatory Aids Independent 10/02/25 21:10 Cognition No cognitive impairment 10/02/25 21:10 Fall Total Score 28 10/02/25 21:10 Level of Risk Moderate Risk 10/02/25 21:10 Problems (Last Reviewed 10/02/25 @ 23:29 by Elvis Cintron) Alcohol withdrawal (Acute) Opioid use disorder, severe, on maintenance therapy, dependence (Chronic) Alcoholism with alcohol dependence (Chronic) Attestation Statement: By documenting the first initial, last name, and credentials of the reporting nurse below, both parties acknowledge that all relevant information regarding the patient handoff has been communicated, and that all questions have been addressed to ensure continuity and safety of care. Additional Patient Information/Comments: Report Received From: Lorenza BANUELOS
[2025-10-03] MEDS: PHENobarbital 130 MG/ML VIAL IVP ×7 (01:27→05:26)
[2025-10-03] MEDS: Normal Saline Flush 10 ML SYR IVP ×7 (01:27→15:06)
[2025-10-03] MEDS: Gabapentin 300 MG CAP PO (02:34)
[2025-10-03] MEDS: PHENobarbital 130 MG in Normal Saline 50 ML 100 MG IVPB ×2 (02:39→04:36)
[2025-10-03 03:38] LABS: COVID-19 PCR Negative (Negative); RSV PCR Negative (Negative)
--- NOTE | 2025-10-03 05:14 | NUR.NOTE ---
Nursing Note: Pt CIWA 19: Patient thrashing in bed, hallucinating, verbally abusing staff members, blowing air/ trying to spit on staff. patient DOC, cuffed to bed, Patient 130 mg away from Hard stop. RN left message w/ provider to call back regarding concerns. AP
[2025-10-03] MEDS: LORazepam 2 MG/ML VIAL 4 MG IVP (05:56)
[2025-10-03] MEDS: diazePAM 10 MG/2 ML SYR IVP (06:35)
[2025-10-03 07:09] LABS: INR 0.9 (0.9-1.1); Prothrombin Time 9.3 sec (9.1-11.1)
[2025-10-03 07:17] LABS: Magnesium 1.9 mg/dL (1.6-2.6)
[2025-10-03 07:18] LABS: ALT 31 U/L (10-49); AST 43 U/L (<34); Albumin 4.3 g/dL (3.2-5.0); Alkaline Phosphatase 153 U/L (46-116); Anion Gap 11.8 mmol/L (3-11); BUN 11 mg/dL (9-23); Bilirubin, Total 0.3 mg/dL (0.2-1.2); CO2 24.2 mmol/L (20.0-31.0); Calcium 9.5 mg/dL (8.3-10.6); Chloride 109 mmol/L (98-107); Glucose 83 mg/dL (74-106); Potassium 4.3 mmol/L (3.5-5.1); Sodium 145 mmol/L (136-145); Total Protein 7.6 g/dL (5.7-8.2)
[2025-10-03 07:35] LABS: HCT 40.7 % (40.0-50.0); HGB 13.8 g/dL (13.5-17.5); MCH 32.7 pg (27.0-33.0); MCHC 33.9 % (32.0-36.0); MCV 96 fL (80-95); MPV 10.3 fL (8.0-11.0); Platelet Count 332 10^3/uL (130-400); RBC 4.22 10^6/uL (4.36-5.78); RDW 11.8 % (11.8-14.1); RDW-SD 41.6 fL; WBC 10.23 10^3/uL (4.4-10.8)
[2025-10-03] MEDS: Lidocaine 2% Jelly 11 ML SYR (07:50)
[2025-10-03] MEDS: Enoxaparin 40 MG/0.4 ML SYR SC (08:20)
[2025-10-03] MEDS: dexmedeTOMidine IN 0.9 % NACL 400 MCG/100 ML BTL IV (09:29)
--- NOTE | 2025-10-03 12:26 | PHA.REVIEW2 ---
Pharmacy Admission Review Admission Clinical Review Admission Pharmacy Review: Alcohol withdrawal (Acute) No Known Allergies Allergy (Unverified 10/02/25 10:44) Resuscitation Status Full Code Height 5 ft 10 in Weight 70.3 kg Comments Comments/Follow Ups: Follow up on PPI (see current meds section) Pharmacy Admission Review Renal Dosing Renal Dosing: BUN 11 mg/dL (9-23) 10/03/25 06:13 Creatinine 0.73 mg/dL (0.73-1.18) 10/03/25 06:13 Medications needing adjustments: Reviewed (CrCl 127 mL/min) List of meds needing interventions: Current medications are okay Anticoagulation Anticoagulation: Hgb 13.8 g/dL (13.5-17.5) 10/03/25 07:25 Hct 40.7 % (40.0-50.0) 10/03/25 07:25 Plt Count 332 10^3/uL (130-400) 10/03/25 07:25 INR 0.9 (0.9-1.1) 10/03/25 06:13 Creatinine 0.73 mg/dL (0.73-1.18) 10/03/25 06:13 DVT Prophylaxis: Reviewed Medications: Enoxaparin (40mg daily) Relevant Labs Relevant Labs: Sodium 145 mmol/L (136-145) 10/03/25 06:13 Potassium 4.3 mmol/L (3.5-5.1) 10/03/25 06:13 Chloride 109 mmol/L (98-107) H 10/03/25 06:13 Phosphorus 4.7 mg/dL (2.4-5.1) 10/03/25 06:13 Magnesium 1.9 mg/dL (1.6-2.6) 10/03/25 06:13 Electrolytes, C-Reactive P, ESR: Reviewed (AST/ALT 43/31 - increased) Cardiac Review Cardiac Review: Troponin I Cancelled 10/02/25 23:53 Blood Pressure 117/90 1101 Blood Pressure 112/83 1001 Blood Pressure 142/107 0900 Blood Pressure 176/120 0801 Blood Pressure 140/111 0701 Blood Pressure 150/109 0653 Blood Pressure 157/115 0624 Blood Pressure 159/111 0314 BP, HR, EF%: Reviewed (HR WNL) List meds needing interventions: Has order for Precedex infusion running at 0.2mcg/kg/hr QTc Review QTc: Reviewed (460 from 10/02/25) IV to PO Switch IV Medications: Reviewed (Precedex infusion) Home Meds Home Med List reviewed: Intervened Relevent Home Meds Not ordered & why?: Librium (was on phenobarb protocol and diazepam) Eye drops (latanoprost, timolol and brimonidine) all listed as not taking on home med list but were ordered by overnight hospitalist. Asked provider during morning meeting if they wanted patient to get these. Provider asked that the orders be canceled. Also removed from patients home med list. Current Meds Current Medication Order Review: Intervened Comments: Phenobarb for ETOH withdrawal Soft stop: 1054.5mg Hard stop: 1406mg Loading dose was calculated using IBW - should have used actual given that actual is less than IBW. Only slightly larger dose given, did inform provider Total dose received: 1350mg - reached out to provider as 1 more dose and patient will be over hard stop. Provider aware Patient was started on Precedex this morning, asked provider if the PRN phenobarb and diazepam orders (both for CIWA) could be discontinue. Provider was okay with this. Order was put in over night for banana bag with frequency of DAILY to start at 0830 AM. Reached out to provider to see if they still wanted it given, provider canceled the order Reached out to provider to see if they wanted patient on a PPI while in the ICU. Provider looking into it. Comments Comments/Follow Ups: Follow up on PPI (see current meds section)
[2025-10-03] MEDS: Pantoprazole 40 MG VIAL IVP (15:06)
[2025-10-03] MEDS: dexmedeTOMidine IN 0.9 % NACL 400 MCG/100 ML BTL 17.575 MCG IV (16:02)
--- NOTE | 2025-10-03 16:37 | W.PM.PROGNOT ---
Objective Last Vital Signs Temp 36.3 C L 10/03/25 08:12 Pulse 60 10/03/25 15:01 Resp 20 10/03/25 15:01 BP 97/60 L 10/03/25 15:01 Pulse Ox 93 10/03/25 15:01 Laboratory Results - last 24 hr 10/02/25 10/02/25 10/02/25 20:43 21:53 22:13 WBC 10.21 RBC 4.64 Hgb 14.9 Hct 43.2 MCV 93 MCH 32.1 MCHC 34.5 RDW 11.8 Plt Count 367 MPV 10.2 Immature Gran % 0.4 Neutrophils % 64.9 Lymphocytes % 25.1 Monocytes % 7.9 Eosinophils % 1.3 Basophils % 0.4 Nucleated RBC % 0.0 Absolute Neutrophils 6.63 Absolute Lymphocytes 2.56 Absolute Monocytes 0.81 H Absolute Eosinophils 0.13 Absolute Basophils 0.04 PT INR Sodium 144 Potassium 3.5 Chloride 110 H Carbon Dioxide 25.7 Anion Gap 8.3 BUN 14 Creatinine 0.81 Est GFR (CKD-EPI 2020) 102.74 Glucose 109 H Calcium 9.3 Phosphorus Magnesium 1.9 Total Bilirubin 0.2 AST 35 ALT 23 Alkaline Phosphatase 147 H Troponin I Cancelled 5 Total Protein 7.4 Albumin 4.1 Lipase 37 Urine Color Yellow Urine Clarity Clear Urine pH 6.5 Ur Specific [place] 1.010 Urine Protein Negative Urine Ketones Negative Urine Blood Negative Urine Nitrite Negative Urine Bilirubin Negative Urine Urobilinogen 0.2 Ur Leukocyte Esterase Negative Urine Glucose Negative Urine Opiates Screen Negative Urine Methadone Screen Negative Ur Barbiturates Screen Negative Ur Tricyclics Screen Negative Ur Amphetamines Screen Negative Phenobarbital U Benzodiazepines Scrn Positive A Urine Cocaine Screen Negative U Cannabinoids Screen Negative COVID-19 Source SARS-CoV-2 (PCR) Influenza Type A (PCR) Influenza Type B (PCR) RSV (PCR) 10/02/25 10/03/25 10/03/25 23:53 01:35 01:38 WBC RBC Hgb Hct MCV MCH MCHC RDW Plt Count MPV Immature Gran % Neutrophils % Lymphocytes % Monocytes % Eosinophils % Basophils % Nucleated RBC % Absolute Neutrophils Absolute Lymphocytes Absolute Monocytes Absolute Eosinophils Absolute Basophils PT INR Sodium Potassium Chloride Carbon Dioxide Anion Gap BUN Creatinine Est GFR (CKD-EPI 2020) Glucose Calcium Phosphorus Magnesium Total Bilirubin AST ALT Alkaline Phosphatase Troponin I Cancelled Total Protein Albumin Lipase Urine Color Cancelled Urine Clarity Cancelled Urine pH Cancelled Ur Specific [place] Cancelled Urine Protein Cancelled Urine Ketones Cancelled Urine Blood Cancelled Urine Nitrite Cancelled Urine Bilirubin Cancelled Urine Urobilinogen Cancelled Ur Leukocyte Esterase Cancelled Urine Glucose Cancelled Urine Opiates Screen Urine Methadone Screen Ur Barbiturates Screen Ur Tricyclics Screen Ur Amphetamines Screen Phenobarbital U Benzodiazepines Scrn Urine Cocaine Screen U Cannabinoids Screen COVID-19 Source Nasopharynx SARS-CoV-2 (PCR) Negative Influenza Type A (PCR) Negative Influenza Type B (PCR) Negative RSV (PCR) Negative 10/03/25 10/03/25 06:13 07:25 WBC 10.23 RBC 4.22 L Hgb 13.8 Hct 40.7 MCV 96 H MCH 32.7 MCHC 33.9 RDW 11.8 Plt Count 332 MPV 10.3 Immature Gran % Neutrophils % Lymphocytes % Monocytes % Eosinophils % Basophils % Nucleated RBC % Absolute Neutrophils Absolute Lymphocytes Absolute Monocytes Absolute Eosinophils Absolute Basophils PT 9.3 INR 0.9 Sodium 145 Potassium 4.3 Chloride 109 H Carbon Dioxide 24.2 Anion Gap 11.8 H BUN 11 Creatinine 0.73 Est GFR (CKD-EPI 2020) 115.84 Glucose 83 Calcium 9.5 Phosphorus 4.7 Magnesium 1.9 Total Bilirubin 0.3 AST 43 H ALT 31 Alkaline Phosphatase 153 H Troponin I Total Protein 7.6 Albumin 4.3 Lipase Urine Color Urine Clarity Urine pH Ur Specific [place] Urine Protein Urine Ketones Urine Blood Urine Nitrite Urine Bilirubin Urine Urobilinogen Ur Leukocyte Esterase Urine Glucose Urine Opiates Screen Urine Methadone Screen Ur Barbiturates Screen Ur Tricyclics Screen Ur Amphetamines Screen Phenobarbital 28.3 U Benzodiazepines Scrn Urine Cocaine Screen U Cannabinoids Screen COVID-19 Source SARS-CoV-2 (PCR) Influenza Type A (PCR) Influenza Type B (PCR) RSV (PCR) PAWSS Have you Been Recently Intoxicated or Drunk Within the Last 30 days?: Yes Have you Ever Experienced Previous Episodes of Alcohol Withdrawal?: Yes Have you ever Experienced Withdrawal Seizures?: Yes Have you ever Experienced Delirium Tremens(DT)s?: Yes Have you ever undergone Alcohol Rehabilitation Treatment (i.e, inpt ot outpatient treatment programs)?: Unable to Obtain Have you ever Experienced Blackouts?: Yes Have you ever Combined Alcohol with other Downers within the last 90 days?: Yes Have you ever Combined Alcohol with any other Substance of Abuse during the last 90 days?: Yes Positive Blood Alcohol level on Presentation? [PCS.BAL]: Unable to Obtain Evidence of Increased Autonomic Activity (i.e. HR>120, tremor, sweating, agitation, nausea)?: Yes Result: 8 VTE Prohylaxis Risk Level: Moderate/High Risk Contraindications: None Prophylaxis: Pharmacologic and Mechanical
--- NOTE | 2025-10-03 17:24 | PDOC.CMIN ---
Date of service: 10/03/25 Time of Service: 09:30 Care Management Initial Assmt Initial Assessment Reason for Hospitalization: ETOH withdrawal Functional Status/Living Situation Patient Presentation: Juwan presented to the ED x2 yesterday. He presented with convulsive episodes, ETOH and opite withdrawal. He was given medicated and able to be discharged. [facility] the [facility] facility, and experienced more episodes of convulsions. He developed severe ETOH withdrawal in the ER on the second trip, and had hallucinations. He was transferred to ICU. CM was unable to communicate with Juwan today, as he was sedated. CM did speak with Katelynn Gonzales, fci coordinator, and updated her. Town of Residence: [facility]. Instrumental Activities of Daily Living (ADLs): Independent Advance Directives Advance Directives: Do you have an Advance Directive: N 05/19/25, 07:52 AD On File at [facility]: N 05/12/25, 22:52 Date Asked 10/02/25 Today, 08:12 AD Date Reviewed COLST On File at [facility] No 05/12/25, 22:52 COLST Date Scanned Code Status Resuscitation Status Full Code Insurance Coverage/Financial Issues Insurance: Medicaid of [place] Care Team Visit Care Team Role Provider Type Duc Burns MD MD [facility] STAFF PHYSICIAN Unknown Unknown Primary Care Provider STAFF PHYSICIAN Maricarmen Cage MD Emergency Provider [facility] STAFF PHYSICIAN Elvis Cintron Admit Provider NON-[facility] STAFF PHYSICIAN Attending Provider Discharge Potential Discharge Needs: Other (facility provider f/u) Anticipated Barriers to Discharge: None Identified Patient/Family Education Needs: Review discharge instructions, discuss Ask Me Three Transportation: Facility Transport Plan: Juwan [facility] once he is medically stable. He will f /u with the facility provider, continue per his plan of care, and transport via the facility. CM will continue to follow. Social Determinants of Health Screening Social Determinants of health last assessed in clinic: 10/03/25 Will the Patient Participate in the Screening?: Unable to obtain Do you worry about having a steady place to live?: no Problems where you live: no known problems In the past 12 months, have you had to go without electric, gas, oil or water in your home?: yes Has lack of transportation kept you from medical appointments or from doing things needed for daily living?: no Has anyone in your life made you feel unsafe or unsupported?: no How hard is it for you to pay for the very basics like food, housing, medical care, and heating? Would you say it is:: Not hard at all Do you want help finding or keeping work or a job?: I do not need or want help If for any reason you need help with day-to-day activities such as bathing, preparing meals, shopping, managing finances, etc., do you get the help you need?: I don?t need any help How often do you feel lonely or isolated from those around you?: Never Do you speak a language other than Occitan at home?: No Does the patient want assistance with any of the above?: No Health Related Social Needs Health related social needs: material hardship(utilities) (Z59.12) Health related social needs details: none PFSH All Active Problems (Updated 10/03/25 @ 06:25 by Elvis Cintron) Glaucoma (Chronic) DVT (deep venous thrombosis) (Chronic) Alcohol withdrawal (Acute) Opioid use disorder, severe, on maintenance therapy, dependence (Chronic) Alcoholism with alcohol dependence (Chronic) Alcohol withdrawal syndrome with perceptual disturbance (Acute) Alcohol use (Acute) Opiate use (Acute) Encephalomalacia on imaging study (Acute) Convulsions (Acute) Open wound of right wrist (Acute) Social History Smoking/Tobacco Use Status: Former Tobacco Use Smoking risk assessment performed?: Yes Alcohol Intake: current Alcohol Intake frequency: 3 or more drinks per day Drug use: Daily Substance use type: marijuana and crack/cocaine Details: pt states last drink was either Thursday morning or Thursday morning Housing: house Additional Social history: correctional facility.
--- NOTE | 2025-10-03 19:27 | PGE_ITS ---
Date of Service Date of service: 10/03/25 Time of Service: 08:00 Assessment and Plan Assessment and plan (1) Alcohol withdrawal: Start date: 10/02/25 Status: Acute Assessment and plan: Off phenobarbital Patient started on precedex in the morning but he continued to have severe agitation Improvement with valium push, continue one-time doses to avoid hypotension (2) Alcoholism with alcohol dependence: Status: Chronic Assessment and plan: Patient has little desire to quit alcohol but does want outpatient treatment at this time. He has recurrent issues. Insight is poor. (3) Opioid use disorder, severe, on maintenance therapy, dependence: Status: Chronic Assessment and plan: Patient is using as much IV and smoking of fentanyl, xylazine and cocaine as he can obtain on the street. He may have opioid withdrawal but has been initiated on Suboxone. Will avoid further narcotic therapy but since he has taken Neurontin on the street I will initiate Neurontin titrating up slowly if needed. This may not be an issue if he has severe alcohol withdrawal and is sedated. (4) DVT (deep venous thrombosis): Status: Chronic Assessment and plan: Event earlier in 2024 when hospitalized for alcohol withdrawal, this was provoked and he has completed treatment. There is no recurrent swelling. He is off Eliquis. (5) Glaucoma: Status: Chronic Assessment and plan: Discontinue eye drops, no longer in use Subjective Subjective Interval history since last seen: Mr. Barnett continues to have episodes of severe agitation, yelling, writhing. Guard at bedside, patient is shackled x4. Exam Narrative Exam Narrative: General: This is an agitated male inmate in distress due to intoxication HEENT: Normocephalic, atraumatic. Poor dentition. CV: RRR Resp: CTAB Abd: soft, NTND MSK: voluntary motion x4 Neuro: awake, alert, no focal deficits Objective Last Vital Signs Temp 36.3 C L 10/03/25 08:12 Pulse 59 L 10/03/25 17:03 Resp 27 H 10/03/25 17:03 BP 81/59 L 10/03/25 17:03 Pulse Ox 97 10/03/25 17:03 Laboratory Results - last 24 hr 10/02/25 10/02/25 10/02/25 20:43 21:53 22:13 WBC 10.21 RBC 4.64 Hgb 14.9 Hct 43.2 MCV 93 MCH 32.1 MCHC 34.5 RDW 11.8 Plt Count 367 MPV 10.2 Immature Gran % 0.4 Neutrophils % 64.9 Lymphocytes % 25.1 Monocytes % 7.9 Eosinophils % 1.3 Basophils % 0.4 Nucleated RBC % 0.0 Absolute Neutrophils 6.63 Absolute Lymphocytes 2.56 Absolute Monocytes 0.81 H Absolute Eosinophils 0.13 Absolute Basophils 0.04 PT INR Sodium 144 Potassium 3.5 Chloride 110 H Carbon Dioxide 25.7 Anion Gap 8.3 BUN 14 Creatinine 0.81 Est GFR (CKD-EPI 2020) 102.74 Glucose 109 H Calcium 9.3 Phosphorus Magnesium 1.9 Total Bilirubin 0.2 AST 35 ALT 23 Alkaline Phosphatase 147 H Troponin I Cancelled 5 Total Protein 7.4 Albumin 4.1 Lipase 37 Urine Color Yellow Urine Clarity Clear Urine pH 6.5 Ur Specific [place] 1.010 Urine Protein Negative Urine Ketones Negative Urine Blood Negative Urine Nitrite Negative Urine Bilirubin Negative Urine Urobilinogen 0.2 Ur Leukocyte Esterase Negative Urine Glucose Negative Urine Opiates Screen Negative Urine Methadone Screen Negative Ur Barbiturates Screen Negative Ur Tricyclics Screen Negative Ur Amphetamines Screen Negative Phenobarbital U Benzodiazepines Scrn Positive A Urine Cocaine Screen Negative U Cannabinoids Screen Negative COVID-19 Source SARS-CoV-2 (PCR) Influenza Type A (PCR) Influenza Type B (PCR) RSV (PCR) 10/02/25 10/03/25 10/03/25 23:53 01:35 01:38 WBC RBC Hgb Hct MCV MCH MCHC RDW Plt Count MPV Immature Gran % Neutrophils % Lymphocytes % Monocytes % Eosinophils % Basophils % Nucleated RBC % Absolute Neutrophils Absolute Lymphocytes Absolute Monocytes Absolute Eosinophils Absolute Basophils PT INR Sodium Potassium Chloride Carbon Dioxide Anion Gap BUN Creatinine Est GFR (CKD-EPI 2020) Glucose Calcium Phosphorus Magnesium Total Bilirubin AST ALT Alkaline Phosphatase Troponin I Cancelled Total Protein Albumin Lipase Urine Color Cancelled Urine Clarity Cancelled Urine pH Cancelled Ur Specific [place] Cancelled Urine Protein Cancelled Urine Ketones Cancelled Urine Blood Cancelled Urine Nitrite Cancelled Urine Bilirubin Cancelled Urine Urobilinogen Cancelled Ur Leukocyte Esterase Cancelled Urine Glucose Cancelled Urine Opiates Screen Urine Methadone Screen Ur Barbiturates Screen Ur Tricyclics Screen Ur Amphetamines Screen Phenobarbital U Benzodiazepines Scrn Urine Cocaine Screen U Cannabinoids Screen COVID-19 Source Nasopharynx SARS-CoV-2 (PCR) Negative Influenza Type A (PCR) Negative Influenza Type B (PCR) Negative RSV (PCR) Negative 10/03/25 10/03/25 06:13 07:25 WBC 10.23 RBC 4.22 L Hgb 13.8 Hct 40.7 MCV 96 H MCH 32.7 MCHC 33.9 RDW 11.8 Plt Count 332 MPV 10.3 Immature Gran % Neutrophils % Lymphocytes % Monocytes % Eosinophils % Basophils % Nucleated RBC % Absolute Neutrophils Absolute Lymphocytes Absolute Monocytes Absolute Eosinophils Absolute Basophils PT 9.3 INR 0.9 Sodium 145 Potassium 4.3 Chloride 109 H Carbon Dioxide 24.2 Anion Gap 11.8 H BUN 11 Creatinine 0.73 Est GFR (CKD-EPI 2020) 115.84 Glucose 83 Calcium 9.5 Phosphorus 4.7 Magnesium 1.9 Total Bilirubin 0.3 AST 43 H ALT 31 Alkaline Phosphatase 153 H Troponin I Total Protein 7.6 Albumin 4.3 Lipase Urine Color Urine Clarity Urine pH Ur Specific [place] Urine Protein Urine Ketones Urine Blood Urine Nitrite Urine Bilirubin Urine Urobilinogen Ur Leukocyte Esterase Urine Glucose Urine Opiates Screen Urine Methadone Screen Ur Barbiturates Screen Ur Tricyclics Screen Ur Amphetamines Screen Phenobarbital 28.3 U Benzodiazepines Scrn Urine Cocaine Screen U Cannabinoids Screen COVID-19 Source SARS-CoV-2 (PCR) Influenza Type A (PCR) Influenza Type B (PCR) RSV (PCR) PAWSS Have you Been Recently Intoxicated or Drunk Within the Last 30 days?: Yes Have you Ever Experienced Previous Episodes of Alcohol Withdrawal?: Yes Have you ever Experienced Withdrawal Seizures?: Yes Have you ever Experienced Delirium Tremens(DT)s?: Yes Have you ever undergone Alcohol Rehabilitation Treatment (i.e, inpt ot outpatient treatment programs)?: Unable to Obtain Have you ever Experienced Blackouts?: Yes Have you ever Combined Alcohol with other Downers within the last 90 days?: Yes Have you ever Combined Alcohol with any other Substance of Abuse during the last 90 days?: Yes Positive Blood Alcohol level on Presentation? [PCS.BAL]: Unable to Obtain Evidence of Increased Autonomic Activity (i.e. HR>120, tremor, sweating, agitation, nausea)?: Yes Result: 8 VTE Prohylaxis Risk Level: Moderate/High Risk Contraindications: None Prophylaxis: Pharmacologic and Mechanical Time Spent with Patient Time Spent with Patient: 35-49 minutes Time was spent: preparing to see the patient(eg.review tests), obtaining and/or reviewing separately otained hiistory, ordering medications,tests, procedures, referring, communicating with other health personal care aid, indepentently interpreting results, counseling the patient and care coordination
[2025-10-03] MEDS: Normal Saline 500 ML IV (22:01)
[2025-10-03] MEDS: Normal Saline 1,000 ML 125 ML IV (23:10)
[2025-10-04] VITALS (65 sets, daily range): BP systolic 91–138; BP diastolic 59–111; PULSE 54–68; RESP 13–28; TEMP 36.4–37.2; O2SAT 95–99
[2025-10-04] MEDS: dexmedeTOMidine IN 0.9 % NACL 400 MCG/100 ML BTL 7.03 MCG IV (00:04)
[2025-10-04] MEDS: Normal Saline 1,000 ML 125 ML IV ×3 (07:12→22:54)
[2025-10-04 07:17] LABS: HCT 46.5 % (40.0-50.0); HGB 15.6 g/dL (13.5-17.5); MCH 32.0 pg (27.0-33.0); MCHC 33.5 % (32.0-36.0); MCV 96 fL (80-95); MPV 10.9 fL (8.0-11.0); Platelet Count 321 10^3/uL (130-400); RBC 4.87 10^6/uL (4.36-5.78); RDW 11.7 % (11.8-14.1); RDW-SD 41.1 fL; WBC 9.62 10^3/uL (4.4-10.8)
[2025-10-04] MEDS: Enoxaparin 40 MG/0.4 ML SYR SC (07:46)
[2025-10-04] MEDS: Folic Acid 1 MG TAB PO (07:47)
[2025-10-04] MEDS: Thiamine 100 MG TAB PO (07:47)
[2025-10-04] MEDS: Multivitamin TAB 1 TAB PO (07:47)
[2025-10-04] MEDS: Acetaminophen 325 MG TAB 650 MG PO (07:47)
[2025-10-04] MEDS: Gabapentin 300 MG CAP PO (07:47)
[2025-10-04] MEDS: Buprenorphine/Naloxone 8 mg/2 mg FILM 1 EACH SL (07:47)
[2025-10-04] MEDS: Normal Saline Flush 10 ML SYR IVP (07:48)
[2025-10-04 07:52] LABS: ALT 41 U/L (10-49); AST 61 U/L (<34); Albumin 3.8 g/dL (3.2-5.0); Alkaline Phosphatase 127 U/L (46-116); Anion Gap 10.3 mmol/L (3-11); BUN 10 mg/dL (9-23); Bilirubin, Total 0.5 mg/dL (0.2-1.2); CO2 26.7 mmol/L (20.0-31.0); Calcium 9.0 mg/dL (8.3-10.6); Chloride 109 mmol/L (98-107); Glucose 77 mg/dL (74-106); Potassium 3.8 mmol/L (3.5-5.1); Sodium 146 mmol/L (136-145); Total Protein 7.1 g/dL (5.7-8.2)
[2025-10-04 07:54] LABS: Magnesium 1.8 mg/dL (1.6-2.6)
[2025-10-04] MEDS: dexmedeTOMidine IN 0.9 % NACL 400 MCG/100 ML BTL 14.06 MCG IV ×2 (09:47→16:36)
--- NOTE | 2025-10-04 13:08 | CMPROGNOTE_ITS ---
Date of service: 10/04/25 Time of Service: 13:08 Care Management Progress Note Progress Note Text Progress Note Text: Juwan has been sleeping each time that CM has tried to visit with him, and CM did not try to wake him. He is still on the precedex drip, which needed to be titrated up this morning. CM spoke with Katelynn Gonzales at the halfway to update her on Juwan's status. Discharge Potential Discharge Needs: Other (facility provider f/u) Anticipated Barriers to Discharge: None Identified Patient/Family Education Needs: Review discharge instructions, discuss Ask Me Three Transportation: Facility Transport Plan: [facility]wan [facility] once he is medically stable. He will f /u with the facility provider, continue per his plan of care, and transport via the facility. CM will continue to follow. Social Determinants of Health Screening Social Determinants of health last assessed in clinic: 10/03/25 Will the Patient Participate in the Screening?: Unable to obtain Do you worry about having a steady place to live?: no Problems where you live: no known problems In the past 12 months, have you had to go without electric, gas, oil or water in your home?: yes Has lack of transportation kept you from medical appointments or from doing things needed for daily living?: no Has anyone in your life made you feel unsafe or unsupported?: no How hard is it for you to pay for the very basics like food, housing, medical care, and heating? Would you say it is:: Not hard at all Do you want help finding or keeping work or a job?: I do not need or want help If for any reason you need help with day-to-day activities such as bathing, preparing meals, shopping, managing finances, etc., do you get the help you need?: I don?t need any help How often do you feel lonely or isolated from those around you?: Never Do you speak a language other than Turkish at home?: No Does the patient want assistance with any of the above?: No Health Related Social Needs Health related social needs: material hardship(utilities) (Z59.12) Health related social needs details: none
[2025-10-04] MEDS: Pantoprazole 40 MG VIAL IVP (14:37)
--- NOTE | 2025-10-04 16:03 | PGE_ITS ---
Date of Service Date of service: 10/04/25 Time of Service: 08:00 Assessment and Plan Assessment and plan (1) Alcohol withdrawal: Start date: 10/02/25 Status: Acute Assessment and plan: Off phenobarbital Patient started on precedex in the morning Oct 03, but he continued to have severe agitation Improvement with valium push, no additional doses needed Continuing precedex Oct 04, anticipate moving back to benzodiazepines Oct 05 (2) Alcoholism with alcohol dependence: Status: Chronic Assessment and plan: Patient has little desire to quit alcohol but does want outpatient treatment at this time. He has recurrent issues. Insight is poor. (3) Opioid use disorder, severe, on maintenance therapy, dependence: Status: Chronic Assessment and plan: Patient is using as much IV and smoking of fentanyl, xylazine and cocaine as he can obtain on the street. He may have opioid withdrawal but has been initiated on Suboxone. Will avoid further narcotic therapy but since he has taken Neurontin on the street I will initiate Neurontin titrating up slowly if needed. This may not be an issue if he has severe alcohol withdrawal and is sedated. (4) DVT (deep venous thrombosis): Status: Chronic Assessment and plan: Event earlier in 2024 when hospitalized for alcohol withdrawal, this was provoked and he has completed treatment. There is no recurrent swelling. He is off Eliquis. (5) Glaucoma: Status: Chronic Assessment and plan: Discontinue eye drops, no longer in use Subjective Subjective Interval history since last seen: Mr. Barnett is less agitated today, still on precedex Exam Narrative Exam Narrative: General: This is an agitated male inmate in distress due to intoxication HEENT: Normocephalic, atraumatic. Poor dentition. CV: RRR Resp: CTAB Abd: soft, NTND MSK: voluntary motion x4 Neuro: awake, alert, no focal deficits Objective Last Vital Signs Temp 36.7 C 10/04/25 09:54 Pulse 56 L 10/04/25 13:31 Resp 20 10/04/25 13:31 BP 112/81 10/04/25 13:31 Pulse Ox 97 10/04/25 13:31 Laboratory Results - last 24 hr 10/04/25 06:00 WBC 9.62 RBC 4.87 Hgb 15.6 Hct 46.5 MCV 96 H MCH 32.0 MCHC 33.5 RDW 11.7 L Plt Count 321 MPV 10.9 Sodium 146 H Potassium 3.8 Chloride 109 H Carbon Dioxide 26.7 Anion Gap 10.3 BUN 10 Creatinine 0.76 Est GFR (CKD-EPI 2020) 110.57 Glucose 77 Calcium 9.0 Magnesium 1.8 Total Bilirubin 0.5 AST 61 H ALT 41 Alkaline Phosphatase 127 H Total Protein 7.1 Albumin 3.8 PAWSS Have you Been Recently Intoxicated or Drunk Within the Last 30 days?: Yes Have you Ever Experienced Previous Episodes of Alcohol Withdrawal?: Yes Have you ever Experienced Withdrawal Seizures?: Yes Have you ever Experienced Delirium Tremens(DT)s?: Yes Have you ever undergone Alcohol Rehabilitation Treatment (i.e, inpt ot outpa tient treatment programs)?: Unable to Obtain Have you ever Experienced Blackouts?: Yes Have you ever Combined Alcohol with other Downers within the last 90 days?: Yes Have you ever Combined Alcohol with any other Substance of Abuse during the last 90 days?: Yes Positive Blood Alcohol level on Presentation? [PCS.BAL]: Unable to Obtain Evidence of Increased Autonomic Activity (i.e. HR>120, tremor, sweating, agitation, nausea)?: Yes Result: 8 VTE Prohylaxis Risk Level: Moderate/High Risk Contraindications: None Prophylaxis: Pharmacologic and Mechanical Time Spent with Patient Time Spent with Patient: 35-49 minutes Time was spent: preparing to see the patient(eg.review tests), obtaining and/or reviewing separately otained hiistory, ordering medications,tests, procedures, referring, communicating with other health primary care nurse practitioner, indepentently interpreting results, counseling the patient and care coordination
[2025-10-04] MEDS: dexmedeTOMidine IN 0.9 % NACL 400 MCG/100 ML BTL 22.848 MCG IV (22:13)
[2025-10-05] VITALS (43 sets, daily range): BP systolic 106–157; BP diastolic 74–99; PULSE 57–106; RESP 12–29; TEMP 36.4–36.9; O2SAT 79–100
[2025-10-05] MEDS: dexmedeTOMidine IN 0.9 % NACL 400 MCG/100 ML BTL 26.363 MCG IV ×2 (02:27→07:00)
[2025-10-05] MEDS: LORazepam 2 MG/ML VIAL (04:11)
[2025-10-05] MEDS: Normal Saline 1,000 ML 125 ML IV ×2 (08:04→15:34)
[2025-10-05] MEDS: Normal Saline Flush 10 ML SYR IVP ×2 (08:55→20:08)
[2025-10-05] MEDS: Thiamine 100 MG TAB PO (08:56)
[2025-10-05] MEDS: Buprenorphine/Naloxone 8 mg/2 mg FILM 1 EACH SL (08:56)
[2025-10-05] MEDS: Multivitamin TAB 1 TAB PO (08:56)
[2025-10-05] MEDS: Enoxaparin 40 MG/0.4 ML SYR SC (08:56)
[2025-10-05] MEDS: Gabapentin 300 MG CAP PO ×3 (08:57→19:56)
[2025-10-05] MEDS: Folic Acid 1 MG TAB PO (08:57)
[2025-10-05 09:20] LABS: ALT 35 U/L (10-49); AST 48 U/L (<34); Albumin 3.5 g/dL (3.2-5.0); Alkaline Phosphatase 121 U/L (46-116); Anion Gap 8.5 mmol/L (3-11); BUN 8 mg/dL (9-23); Bilirubin, Total 0.3 mg/dL (0.2-1.2); CO2 26.5 mmol/L (20.0-31.0); Calcium 8.5 mg/dL (8.3-10.6); Chloride 110 mmol/L (98-107); Glucose 130 mg/dL (74-106); Magnesium 1.8 mg/dL (1.6-2.6); Potassium 3.7 mmol/L (3.5-5.1); Sodium 145 mmol/L (136-145); Total Protein 6.4 g/dL (5.7-8.2)
--- NOTE | 2025-10-05 09:23 | PDOC.CMPRO ---
Date of service: 10/05/25 Time of Service: 17:10 Care Management Progress Note Progress Note Text Progress Note Text: Juwan is currently experiencing severe withdrawal and is on precedex. He was sleeping each time CM tried to visit with him, and CM did not try to wake him. Juwan is an inmate from [facility], and is currently accompanied by a student liaison officer. Of note, there has been mention of wounds on his right wrist, and a wound consult was discussed, but not ordered. CM will follow. Discharge Potential Discharge Needs: PCP F/U Appt Anticipated Barriers to Discharge: None Identified Patient/Family Education Needs: Review discharge instructions, discuss Ask Me Three Transportation: Facility Transport Plan: Juwan [facility] once he is medically stable. He will f /u with the facility provider, continue per his plan of care, and transport via the facility. CM will continue to follow. Social Determinants of Health Screening Social Determinants of health last assessed in clinic: 10/03/25 Will the Patient Participate in the Screening?: Unable to obtain Do you worry about having a steady place to live?: no Problems where you live: no known problems In the past 12 months, have you had to go without electric, gas, oil or water in your home?: yes Has lack of transportation kept you from medical appointments or from doing things needed for daily living?: no Has anyone in your life made you feel unsafe or unsupported?: no How hard is it for you to pay for the very basics like food, housing, medical care, and heating? Would you say it is:: Not hard at all Do you want help finding or keeping work or a job?: I do not need or want help If for any reason you need help with day-to-day activities such as bathing, preparing meals, shopping, managing finances, etc., do you get the help you need?: I don?t need any help How often do you feel lonely or isolated from those around you?: Never Do you speak a language other than Mongolian at home?: No Does the patient want assistance with any of the above?: No Health Related Social Needs Health related social needs: material hardship(utilities) (Z59.12) Health related social needs details: none
[2025-10-05 13:27] LABS: HCT 43.4 % (40.0-50.0); HGB 14.8 g/dL (13.5-17.5); MCH 32.4 pg (27.0-33.0); MCHC 34.1 % (32.0-36.0); MCV 95 fL (80-95); MPV 11.2 fL (8.0-11.0); Platelet Count 308 10^3/uL (130-400); RBC 4.57 10^6/uL (4.36-5.78); RDW 11.5 % (11.8-14.1); RDW-SD 39.9 fL; WBC 10.17 10^3/uL (4.4-10.8)
[2025-10-05] MEDS: diazePAM 10 MG/2 ML SYR 5 MG IVP (13:41)
[2025-10-05] MEDS: Pantoprazole 40 MG VIAL IVP (13:43)
[2025-10-05] MEDS: LORazepam 1 MG TAB PO/SL ×4 (15:24→23:48)
--- NOTE | 2025-10-05 19:21 | W.PM.PROGNOT ---
Date of Service Date of service: 10/05/25 Time of Service: 08:00 Assessment and Plan Assessment and plan (1) Alcohol withdrawal: Start date: 10/02/25 Status: Acute Assessment and plan: Off phenobarbital Off precedex Downgraded from ICU to the floor Now on lorazepam PO PRN per withdrawal protocol Anticipate discharge in 24-48 hours (2) Alcoholism with alcohol dependence: Status: Chronic Assessment and plan: Patient has little desire to quit alcohol but does want outpatient treatment at this time. He has recurrent issues. Insight is poor. (3) Opioid use disorder, severe, on maintenance therapy, dependence: Status: Chronic Assessment and plan: Patient is using as much IV and smoking of fentanyl, xylazine and cocaine as he can obtain on the street. He may have opioid withdrawal but has been initiated on Suboxone. Will avoid further narcotic therapy but since he has taken Neurontin on the street I will initiate Neurontin titrating up slowly if needed. This may not be an issue if he has severe alcohol withdrawal and is sedated. (4) DVT (deep venous thrombosis): Status: Chronic Assessment and plan: Event earlier in 2024 when hospitalized for alcohol withdrawal, this was provoked and he has completed treatment. There is no recurrent swelling. He is off Eliquis. (5) Glaucoma: Status: Chronic Assessment and plan: Discontinue eye drops, no longer in use Subjective Subjective Interval history since last seen: Mr. Barnett is less agitated and is off precedex. He is now requesting services including narcotics and food. Exam Narrative Exam Narrative: General: This is an agitated male inmate in distress due to intoxication HEENT: Normocephalic, atraumatic. Poor dentition. CV: RRR Resp: CTAB Abd: soft, NTND MSK: voluntary motion x4 Neuro: awake, alert, no focal deficits Objective Last Vital Signs Temp 36.9 C 10/05/25 08:29 Pulse 102 H 10/05/25 18:15 Resp 17 10/05/25 18:15 BP 135/99 H 10/05/25 18:15 Pulse Ox 100 10/05/25 18:15 Laboratory Results - last 24 hr 10/05/25 05:53 WBC 10.17 RBC 4.57 Hgb 14.8 Hct 43.4 MCV 95 MCH 32.4 MCHC 34.1 RDW 11.5 L Plt Count 308 MPV 11.2 H Sodium 145 Potassium 3.7 Chloride 110 H Carbon Dioxide 26.5 Anion Gap 8.5 BUN 8 L Creatinine 0.72 L Est GFR (CKD-EPI 2020) 117.69 Glucose 130 H Calcium 8.5 Magnesium 1.8 Total Bilirubin 0.3 AST 48 H ALT 35 Alkaline Phosphatase 121 H Total Protein 6.4 Albumin 3.5 PAWSS Have you Been Recently Intoxicated or Drunk Within the Last 30 days?: Yes Have you Ever Experienced Previous Episodes of Alcohol Withdrawal?: Yes Have you ever Experienced Withdrawal Seizures?: Yes Have you ever Experienced Delirium Tremens(DT)s?: Yes Have you ever undergone Alcohol Rehabilitation Treatment (i.e, inpt ot outpatient treatment programs)?: Unable to Obtain Have you ever Experienced Blackouts?: Yes Have you ever Combined Alcohol with other Downers within the last 90 days?: Yes Have you ever Combined Alcohol with any other Substance of Abuse during the last 90 days?: Yes Positive Blood Alcohol level on Presentation? [PCS.BAL]: Unable to Obtain Evidence of Increased Autonomic Activity (i.e. HR>120, tremor, sweating, agitation, nausea)?: Yes Result: 8 VTE Prohylaxis Risk Level: Moderate/High Risk Contraindications: None Prophylaxis: Pharmacologic and Mechanical Time Spent with Patient Time Spent with Patient: 25-34 minutes Time was spent: preparing to see the patient(eg.review tests), obtaining and/or reviewing separately otained hiistory, ordering medications,tests, procedures, referring, communicating with other health healthcare administrative assistant, indepentently interpreting results, counseling the patient and care coordination
[2025-10-05] MEDS: Acetaminophen 325 MG TAB 650 MG PO (21:47)
[2025-10-06] VITALS: PULSE 97
[2025-10-06 00:01] VITALS: BP 163/99; PULSE 96
[2025-10-06] MEDS: Ketorolac 15 MG/ML VIAL IVP (01:01)
[2025-10-06] MEDS: Normal Saline Flush 10 ML SYR IVP ×2 (01:02→08:02)
[2025-10-06] MEDS: LORazepam 1 MG TAB PO/SL (04:45)
[2025-10-06 07:27] LABS: HCT 44.5 % (40.0-50.0); HGB 15.0 g/dL (13.5-17.5); MCH 32.2 pg (27.0-33.0); MCHC 33.7 % (32.0-36.0); MCV 96 fL (80-95); MPV 11.0 fL (8.0-11.0); Platelet Count 293 10^3/uL (130-400); RBC 4.66 10^6/uL (4.36-5.78); RDW 11.5 % (11.8-14.1); RDW-SD 40.2 fL; WBC 7.31 10^3/uL (4.4-10.8)
[2025-10-06 07:53] LABS: Anion Gap 11.5 mmol/L (3-11); BUN 10 mg/dL (9-23); CO2 27.5 mmol/L (20.0-31.0); Calcium 9.0 mg/dL (8.3-10.6); Chloride 105 mmol/L (98-107); Glucose 86 mg/dL (74-106); Potassium 3.5 mmol/L (3.5-5.1); Sodium 144 mmol/L (136-145)
[2025-10-06] MEDS: Enoxaparin 40 MG/0.4 ML SYR SC (08:01)
[2025-10-06] MEDS: Buprenorphine/Naloxone 8 mg/2 mg FILM 1 EACH SL (08:01)
[2025-10-06] MEDS: Gabapentin 300 MG CAP PO ×2 (08:02→14:13)
[2025-10-06] MEDS: Folic Acid 1 MG TAB PO (08:02)
[2025-10-06] MEDS: Thiamine 100 MG TAB PO (08:02)
[2025-10-06] MEDS: Multivitamin TAB 1 TAB PO (08:02)
[2025-10-06 08:37] VITALS: BP 172/82; PULSE 79; O2SAT 98
[2025-10-06] MEDS: Pantoprazole 40 MG VIAL IVP (14:13)
[2025-10-06 14:30] VITALS: O2SAT 97
[2025-10-06 14:31] VITALS: BP 158/108; PULSE 88; RESP 18; TEMP 36.8; O2SAT 97
--- NOTE | 2025-10-06 14:45 | W.PM.DS.N ---
Date of service: 10/06/25 Time of Service: 14:45 DS: Diagnosis Discharge Diagnosis (1) Alcohol withdrawal: Status: Acute (2) Alcoholism with alcohol dependence: Status: Chronic (3) Opioid use disorder, severe, on maintenance therapy, dependence: Status: Chronic (4) DVT (deep venous thrombosis): Status: Chronic (5) Glaucoma: Status: Chronic Discharge Plan Disposition Patient Disposition: [facility] [place] Condition: Stable Discharge Details Reason For Visit: Alcohol withdrawal Admit Date/Time: 10/02/25 23:48 Admit Provider: Elvis Cintron Attending Provider: Elvis Cintron Primary Care Provider: Unknown,Unknown Hospital Course Hospital Course: 45-year-old gentleman with a history of severe active alcohol abuse and polysubstance drug abuse including OUD on buprenophrine who presented after being taken into police cust[facility] with a convulsive episode despite oral chlordiazepoxide. He reported using whatever drugs he could get his hands on, including opioids, benzodiazepines, and crack cocaine. 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 He was admitted and treated with alcohol withdrawal phenobarbital protocol, and reached maximal dosing. Precedex drip was then started and he received additional benzodiapines 10/04 to 10/05. By the the morning of hospital day #5 was minimally symptomatic and lorazepam was discontinued. He was continued on gabapentin which may help his anxiety and alcohol use disorder. After discharge was discussed he did express some suicidal ideation and was evaluated by [facility] mental health crisis team and was felt to be not actively suicidal. He did express interest in rehab and supportive recovery oriented living upon release from corrections. His AST was noted mildly elevated c/w alcohol use. His platelets were normal, suggesting his does not have liver cirrhosis. Liver function should be followed. Based on his MRI he may have had a stroke at some point in the past. He should discuss possible aspirin and statin use with his primary care team for secondary prevention. Home Meds and New Rx's Prescriptions: New multivitamin [Multiple Vitamins] Tablet 1 tab PO QAM Qty: 90 0RF acetaminophen 325 mg Tablet 650 mg PO Q4H PRN PRNQty: 90 0RF gabapentin 300 mg Capsule 300 mg PO TID Qty: 90 0RF folic acid 1 mg Tablet 1 mg PO QAM 30 Days Qty: 30 0RF thiamine mononitrate (vit B1) [Vitamin B-1 (mononitrate)] 100 mg Tablet 100 mg PO QAM 30 Days Qty: 30 0RF timolol maleate 0.5 % drops 1 drp ophthalmic (eye) DAILY Qty: 10 0RF Continued buprenorphine-naloxone [Suboxone] 8-2 mg film 1 film sublingual DAILY Discontinued chlordiazepoxide 25 mg tablet 25 mg PO DAILY Discharge Instructions Additional Instructions: Continue the vitamins as above. Also restart the timolol for your glaucoma and follow up with the eye doctor. You should consider additional treatment center placement and consider additional medication management for alcohol and drug use disorder when you are leaving the correctional system. Activity:: Activity as Tolerated Equipment/Supplies:: No Equipment Needed Diet:: As Tolerated Discharge Orders Discharge Orders: Discharge Order (Routine); Ordered 10/06/25 Ordered By: Benito Raza DS: Summary Time Spent with Patient providing and/or coordinating discharge services: Greater than 30 minutes Status at Discharge Functional status at discharge: independent ambulation Overall status at discharge: patient is progressing back to baseline Mental Status: mental status grossly normal Speech and Movement: speech and movement normal Mood: congruent mood Affect: normal affect Quality:SDOH Health Related Social Needs: Health related social needs material hardship Health related social needs details none Health related social needs details: none Exam Narrative Exam Narrative: General: Alert and oriented, no longer agitated, cooperates with exam (though still restrained) HEENT: Normocephalic, atraumatic. Poor dentition. CV: RRR Resp: CTAB Abd: soft, NTND Ext: no edema, non-tender. Neuro: awake, alert, no focal deficits other than right eye deviation (chronic). no tremor. Psych Mental Status: mental status grossly normal Speech and Movement: speech and movement normal Mood: congruent mood Affect: normal affect DS: Data Vitals/I&O Vitals and I&O: Vital Signs Temperature 36.8 C 10/06/25 14:31 Temperature Source Temporal Artery Scan 10/05/25 08:29 Pulse 88 10/06/25 14:31 Pulse Rhythm Regular 10/03/25 01:39 Pulse 96 H 10/06/25 00:01 Respiratory Rate 18 10/06/25 14:31 Respiratory Effort Normal, Non-Labored 10/05/25 03:58 Respiratory Depth Normal 10/03/25 06:55 Respiratory Pattern Normal 10/03/25 06:55 Blood Pressure 158/108 H 10/06/25 14:31 Blood Pressure Mean 125 10/06/25 14:31 Blood Pressure Position Supine 10/02/25 20:36 Pulse Oximetry 97 10/06/25 14:31 Oxygen Delivery Method Room Air 10/06/25 08:37 Oxygen Flow Rate 0 10/06/25 08:37 Pain Level 8 10/03/25 01:39 Comment precedex titrated down 10/03/25 17:03 Intake & Output 10/05/25 10/06/25 10/06/25 23:59 11:59 23:59 Intake Total 2265.388 / 4567.083 600 / 600 Output Total 2800 / 4750 Balance -534.612 / -182.917 600 / 600 Intake: IV 1545.388 / 2827.083 Oral 720 / 1740 600 / 600 Output: Urine 2800 / 4750 Other: Urine Color Pale Urine Appearance Clear Data Completed and Pending Pending Labs at Discharge: 10/02/25 10/02/25 10/02/25 20:43 21:53 22:13 WBC 10.21 RBC 4.64 Hgb 14.9 Hct 43.2 MCV 93 MCH 32.1 MCHC 34.5 RDW 11.8 Plt Count 367 MPV 10.2 Immature Gran % 0.4 Neutrophils % 64.9 Lymphocytes % 25.1 Monocytes % 7.9 Eosinophils % 1.3 Basophils % 0.4 Nucleated RBC % 0.0 Absolute Neutrophils 6.63 Absolute Lymphocytes 2.56 Absolute Monocytes 0.81 H Absolute Eosinophils 0.13 Absolute Basophils 0.04 PT INR Sodium 144 Potassium 3.5 Chloride 110 H Carbon Dioxide 25.7 Anion Gap 8.3 BUN 14 Creatinine 0.81 Est GFR (CKD-EPI 2020) 102.74 Glucose 109 H Calcium 9.3 Phosphorus Magnesium 1.9 Total Bilirubin 0.2 AST 35 ALT 23 Alkaline Phosphatase 147 H Troponin I Cancelled 5 Total Protein 7.4 Albumin 4.1 Lipase 37 Urine Color Yellow Urine Clarity Clear Urine pH 6.5 Ur Specific [place] 1.010 Urine Protein Negative Urine Ketones Negative Urine Blood Negative Urine Nitrite Negative Urine Bilirubin Negative Urine Urobilinogen 0.2 Ur Leukocyte Esterase Negative Urine Glucose Negative Urine Opiates Screen Negative Urine Methadone Screen Negative Ur Barbiturates Screen Negative Ur Tricyclics Screen Negative Ur Amphetamines Screen Negative Phenobarbital U Benzodiazepines Scrn Positive A Urine Cocaine Screen Negative U Cannabinoids Screen Negative COVID-19 Source SARS-CoV-2 (PCR) Influenza Type A (PCR) Influenza Type B (PCR) RSV (PCR) 10/02/25 10/03/25 10/03/25 23:53 01:35 01:38 WBC RBC Hgb Hct MCV MCH MCHC RDW Plt Count MPV Immature Gran % Neutrophils % Lymphocytes % Monocytes % Eosinophils % Basophils % Nucleated RBC % Absolute Neutrophils Absolute Lymphocytes Absolute Monocytes Absolute Eosinophils Absolute Basophils PT INR Sodium Potassium Chloride Carbon Dioxide Anion Gap BUN Creatinine Est GFR (CKD-EPI 2020) Glucose Calcium Phosphorus Magnesium Total Bilirubin AST ALT Alkaline Phosphatase Troponin I Cancelled Total Protein Albumin Lipase Urine Color Cancelled Urine Clarity Cancelled Urine pH Cancelled Ur Specific [place] Cancelled Urine Protein Cancelled Urine Ketones Cancelled Urine Blood Cancelled Urine Nitrite Cancelled Urine Bilirubin Cancelled Urine Urobilinogen Cancelled Ur Leukocyte Esterase Cancelled Urine Glucose Cancelled Urine Opiates Screen Urine Methadone Screen Ur Barbiturates Screen Ur Tricyclics Screen Ur Amphetamines Screen Phenobarbital U Benzodiazepines Scrn Urine Cocaine Screen U Cannabinoids Screen COVID-19 Source Nasopharynx SARS-CoV-2 (PCR) Negative Influenza Type A (PCR) Negative Influenza Type B (PCR) Negative RSV (PCR) Negative 10/03/25 10/03/25 10/04/25 06:13 07:25 06:00 WBC 10.23 9.62 RBC 4.22 L 4.87 Hgb 13.8 15.6 Hct 40.7 46.5 MCV 96 H 96 H MCH 32.7 32.0 MCHC 33.9 33.5 RDW 11.8 11.7 L Plt Count 332 321 MPV 10.3 10.9 Immature Gran % Neutrophils % Lymphocytes % Monocytes % Eosinophils % Basophils % Nucleated RBC % Absolute Neutrophils Absolute Lymphocytes Absolute Monocytes Absolute Eosinophils Absolute Basophils PT 9.3 INR 0.9 Sodium 145 146 H Potassium 4.3 3.8 Chloride 109 H 109 H Carbon Dioxide 24.2 26.7 Anion Gap 11.8 H 10.3 BUN 11 10 Creatinine 0.73 0.76 Est GFR (CKD-EPI 2020) 115.84 110.57 Glucose 83 77 Calcium 9.5 9.0 Phosphorus 4.7 Magnesium 1.9 1.8 Total Bilirubin 0.3 0.5 AST 43 H 61 H ALT 31 41 Alkaline Phosphatase 153 H 127 H Troponin I Total Protein 7.6 7.1 Albumin 4.3 3.8 Lipase Urine Color Urine Clarity Urine pH Ur Specific [place] Urine Protein Urine Ketones Urine Blood Urine Nitrite Urine Bilirubin Urine Urobilinogen Ur Leukocyte Esterase Urine Glucose Urine Opiates Screen Urine Methadone Screen Ur Barbiturates Screen Ur Tricyclics Screen Ur Amphetamines Screen Phenobarbital 28.3 U Benzodiazepines Scrn Urine Cocaine Screen U Cannabinoids Screen COVID-19 Source SARS-CoV-2 (PCR) Influenza Type A (PCR) Influenza Type B (PCR) RSV (PCR) 10/05/25 10/06/25 05:53 06:20 WBC 10.17 7.31 RBC 4.57 4.66 Hgb 14.8 15.0 Hct 43.4 44.5 MCV 95 96 H MCH 32.4 32.2 MCHC 34.1 33.7 RDW 11.5 L 11.5 L Plt Count 308 293 MPV 11.2 H 11.0 Immature Gran % Neutrophils % Lymphocytes % Monocytes % Eosinophils % Basophils % Nucleated RBC % Absolute Neutrophils Absolute Lymphocytes Absolute Monocytes Absolute Eosinophils Absolute Basophils PT INR Sodium 145 144 Potassium 3.7 3.5 Chloride 110 H 105 Carbon Dioxide 26.5 27.5 Anion Gap 8.5 11.5 H BUN 8 L 10 Creatinine 0.72 L 0.74 Est GFR (CKD-EPI 2020) 117.69 114.03 Glucose 130 H 86 Calcium 8.5 9.0 Phosphorus Magnesium 1.8 Total Bilirubin 0.3 AST 48 H ALT 35 Alkaline Phosphatase 121 H Troponin I Total Protein 6.4 Albumin 3.5 Lipase Urine Color Urine Clarity Urine pH Ur Specific [place] Urine Protein Urine Ketones Urine Blood Urine Nitrite Urine Bilirubin Urine Urobilinogen Ur Leukocyte Esterase Urine Glucose Urine Opiates Screen Urine Methadone Screen Ur Barbiturates Screen Ur Tricyclics Screen Ur Amphetamines Screen Phenobarbital U Benzodiazepines Scrn Urine Cocaine Screen U Cannabinoids Screen COVID-19 Source SARS-CoV-2 (PCR) Influenza Type A (PCR) Influenza Type B (PCR) RSV (PCR) PFSH All Active Problems (Updated 10/03/25 @ 06:25 by Elvis Cintron) Glaucoma (Chronic) DVT (deep venous thrombosis) (Chronic) Alcohol withdrawal (Acute) Opioid use disorder, severe, on maintenance therapy, dependence (Chronic) Alcoholism with alcohol dependence (Chronic) Alcohol withdrawal syndrome with perceptual disturbance (Acute) Alcohol use (Acute) Opiate use (Acute) Encephalomalacia on imaging study (Acute) Convulsions (Acute) Open wound of right wrist (Acute) Social History Smoking/Tobacco Use Status: Former Tobacco Use Smoking risk assessment performed?: Yes Alcohol Intake: current Alcohol Intake frequency: 3 or more drinks per day Drug use: Daily Substance use type: marijuana and crack/cocaine Details: pt states last drink was either Thursday morning or Thursday morning Housing: house Additional Social history: correctional facility. Time Spent with Patient Time Spent with Patient: 45-69 minutes Time was spent: preparing to see the patient(eg.review tests), obtaining and/or reviewing separately otained hiistory, ordering medications,tests, procedures, referring, communicating with other health animal care assistant, indepentently interpreting results, counseling the patient and care coordination
--- NOTE | 2025-10-06 14:48 | W.NUTRFU ---
Date of service: 10/06/25 Time of Service: 14:48 Nutrition Note NOTE: Visited with Mr Sacha multiple times yesterday while helping kitchen getting meal orders. Pt admitted from correctional facility for etoh w/d and hx of opiod use disorder. Pt with normal BMI at 22.2 with weight history relatively stable. Pt not too clear in his conversation today. He is adentuous for the most part and has been ordering items he seems to manage with well. ORdered for appropriate repletions per etoh protocol. Glucose, electrolytes, total protein and albumin labs wnl today. Fair to good intake at meals and witnessed being social and conversative with the CO's at bedside. Denies food allergies. Does not like many veggies. Nutrition Dx: Excessive etoh intake AEB reason for admission. Will monitor labs, intake, weight. - discharge anticipated today Time Spent in Nutritional Counseling and Treatment: 10 min
--- NOTE | 2025-10-06 15:17 | CMDISCH_ITS ---
Date of service: 10/06/25 Time of Service: 15:17 LACE Index Scoring Tool Questions: Length of Stay (in days): 4 - 6 Was the patient admitted via the E.D.?: Yes E.D. Visits: 7 Answers: Total Score: 11 Risk of Readmission: High Risk Care Management Discharge Plan Reason for Hospitalization: alcohol withdrawal Discharge Plan: Juwan is discharged this afternoon back to the correctional facility. He will f/u with the facility provider and continue per his plan of care. Juwan will transport with the credit products officer. Discharge summary was faxed to the coordinator at the halfway. Patient/Family Education Needs: Review of discharge instructions, activity, limitations, and discuss Ask me 3. SDOH Health Related Social Needs: Health related social needs material hardship Health related social needs details none Health related social needs details: none
--- NOTE | 2025-10-06 21:13 | PDOC.MHCN ---
Date of service: 10/06/25 Time of Service: 12:10 Suicide Severity Rate CSSRS Have you wished you were or wished you could go to sleep and not wake up?: No Have you actually had any thoughts of killing yourself?: No CSSRS2 Have you been thinking about how you might do this?: No Have you had these thoughts and had some intention of acting on them?: No Have you started to work out or worked out the details of how to kill yourself? Do you intend to carry out this plan?: No CSSRS3 Have you ever done anything, started to do anything or prepared to do anything to end your life?: No CSSRS4 Was this within the past three months?: No Screening Score Total Score: 0 Mental Health Emergency Note Release [facility] release signed:: No Reason for Visit Detoxification; Suicidal Ideation In the last 2 weeks has the pt presented for ES prior to today?: Unknown Non Suicidal Self Injury Current: No History: No Safety Risk/Harm to Self or Others Current Ideation to Harm Self or Others: No CALM/Risk Level Does risk to harm exist?: No Risk: Low Risk Duty to warn indicated: No Asssessment/Mental Status Appearance: Disheveled and Other Attitude: Cooperative, Demanding and Friendly Behavior: Unremarkable Speech: Normal Affect: Cogruent with mood Mood: Stressed and Anxious Thought process: Goal directed and Poverty of content Hallucinations: yes, Auditory (mumbojumbo, I can stop the voices (push them to the background)) Delusions: No evidence Attention: Unremarkable Perception: Not impaired Orientation: Fully orientated Memory: Intact Insight: Good Judgement: Fair Neurovegetative Symptoms Sleep: No change Appetitie: No change Interests: No change Energy: No change Libido: No change Substance Use: ETOH dependence Drug Issues: Dependence Do you use nicotine?: Yes Have you used substances in the last 7 days?: yes, Regular, daily Impression Client is a 45-year-old male, single and unemployed, whose living situation is currently undetermined as he is being assessed following [facility]. Client is new to [facility] and this clinician, and the assessment occurs at the request of [facility] ICU staff after the client has been deemed medically stable. During the assessment, the client presented as disheveled and missing many teeth. He was in 3-point restraints, with the left arm unrestrained and visible IV support. Despite these circumstances, the client appeared cooperative and friendly, although demanding, pleading for additional chemical assistance. His speech was at a normal pace and tone, while his affect was congruent with an anxious and stressed mood. The client specifically pleaded for more phenobarbital stating, I'm an elephant and nothing else works. Client's thought process was goal-directed but noted for a poverty of content, focusing singularly on increasing phenobarbital and requesting immediate assistance from this clinician. He reported experiencing auditory hallucinations described as voices, mumbojumbo, which he confirmed as unintelligible and non-commanding. The client asserted that he can control these voices and is able to shut them down. There was no evidence of delusions observed during the session. The client was oriented in all four spheres and exhibited good insight as evidenced by his expression of the need to pursue sober living, detailing past successes with sobriety and expressing confidence in his ability to achieve it again. His judgment appeared fair, as he remained focused on the need for more medication, specifically phenobarbital, to consider next steps in treatment. Notably, the client did not discuss the reasons for his presence in [facility] or the restraints he was subjected to. He engaged in the assessment after an explanation of the purpose for the visit, although this had to be repeated multiple times due to his persistent requests for advocacy regarding barbiturates. Throughout the session, the client maintained good eye contact and was able to engage significantly without completing structured screening tools. He denied suicidal ideation, homicidal ideation, or non-suicidal self-injury. Access to means of harm was undetermined due to the client's circumstances of being in restraints in ICU while transitioning from [facility]. His risk to self or the community remains undetermined at this time, as he is under the custody of [facility] during the assessment, with a [employer] remaining present. Despite this, the client denied any risk to himself or others when specifically questioned. A safety plan was not established during this visit. The client was counseled on accessing sober living programs once available, indicating he would need to make calls himself to engage in such services. Additionally, the client declined [facility] services while focusing solely on sober living opportunities. COLLATERAL: A collateral review revealed that the client has been using as much IV and smoking fentanyl, xylazine, and cocaine as possible. He may be experiencing opioid withdrawal but has begun Suboxone treatment. The clinician plans to avoid further narcotic therapy but will initiate a slow titration of Neurontin, given the client?s self-reported historical use. This may not become an issue dependent on any severe alcohol withdrawal and sedation levels. Also included is chronic and acute Alcoholism with alcohol dependence; Patient has little desire to quit alcohol but does want outpatient treatment at this time. He has recurrent issues. Insight is poor. Chronic Opioid use disorder, severe, on maintenance therapy, dependence, suboxone initiated. Client provided with resources, accessible to client after release from [facility]. Client is encouraged to pursue the sober options and to outreach to [facility] for support if client experiences difficulties accessing resources. Plan/Disposition Recommended Disposition: Other. Plan: Discharge to [facility] Reports/communication Outcome discussed with: Other
== END 2025-10-06 15:30 | DRG 897 ==
LOC: ER 23:28 → ICU 10-03 06:22 → MS 10-03 23:41
PROVIDERS: Family Medicine; Admitting Provider Family Medicine; Emergency Provider Emergency Medicine; Responsible Provider Family Medicine; Visit Provider Family Medicine
DX: F10.231 Alcohol dependence with withdrawal delirium (principal); F11.20 Opioid dependence, uncomplicated; H40.89 Other specified glaucoma; F14.90 Cocaine use, unspecified, uncomplicated; Z86.718 Personal history of other venous thrombosis and embolism; Z78.1 Physical restraint status; G93.89 Other specified disorders of brain; Z86.73 Personal history of transient ischemic attack (TIA), and cerebral infarction without residual deficits; Z59.87 Material hardship due to limited financial resources, not elsewhere classified
CPT/HCPCS: 00123; 36415; 80048; 80053; 80307; 83690; 85027; 87637; 93005; 96365; 96367; 96375; 99285; J1650; 70450; 71046; 72125; 80184; 81003; 83735; 84100; 84484; 85025; 85610; 93010; 99223; 99231; 99232; 99239; J0131; J1885; J2060; J2405; J2470; J2560; J3360

== ENCOUNTER 2025-10-07 20:06 | Emergency (ER) | payer OTHER, SELFPAY ==
[2025-10-07] VITALS (23 sets, daily range): BP systolic 101–129; BP diastolic 47–95; PULSE 67–112; RESP 11–31; TEMP 36.7–36.8; O2SAT 92–100
--- NOTE | 2025-10-07 20:00 | RT.EKG_ITS ---
APPROVED REPORT Exam: Resting ECG Reason for Exam: chest pain Patient Location: E HR:101 bpm ECG Measurements Heart Rate 101 AXIS NM 140 P 72 QRSd 104 QRS 149 QT 345 T 42 QTc 447 Conclusion Sinus tachycardia...rate> 99 Probable right ventricular hypertrophy...prominent R or R' w/ RAD or SHRUTI Probable lateral infarct, old...Q>35mS, abnormal ST-T, V5-6 I aVL No STEMI
[2025-10-07] MEDS: Normal Saline 1,000 ML 2000 ML IV (20:54)
[2025-10-07] MEDS: levETIRAcetam 3,000 MG in Normal Saline 100 ML 400 MG IVPB (20:55)
[2025-10-07 21:33] LABS: Abs Immature Grans 0.02 10^3/uL (0.0-0.06); HCT 43.9 % (40.0-50.0); HGB 14.6 g/dL (13.5-17.5); Immature Grans % 0.4 %; MCH 31.6 pg (27.0-33.0); MCHC 33.3 % (32.0-36.0); MCV 95 fL (80-95); MPV 10.1 fL (8.0-11.0); Platelet Count 349 10^3/uL (130-400); RBC 4.62 10^6/uL (4.36-5.78); RDW 11.8 % (11.8-14.1); RDW-SD 41.1 fL; WBC 5.05 10^3/uL (4.4-10.8)
[2025-10-07 21:50] LABS: Lipase 24 U/L (<53)
[2025-10-07 21:51] LABS: Magnesium 1.8 mg/dL (1.6-2.6)
[2025-10-07 21:53] LABS: ALT 29 U/L (10-49); AST 33 U/L (<34); Albumin 3.9 g/dL (3.2-5.0); Alkaline Phosphatase 120 U/L (46-116); Anion Gap 7.1 mmol/L (3-11); BUN 16 mg/dL (9-23); Bilirubin, Total 0.4 mg/dL (0.2-1.2); CO2 24.9 mmol/L (20.0-31.0); Calcium 8.4 mg/dL (8.3-10.6); Chloride 107 mmol/L (98-107); Glucose 107 mg/dL (74-106); Potassium 3.7 mmol/L (3.5-5.1); Sodium 139 mmol/L (136-145); Total Protein 7.1 g/dL (5.7-8.2)
[2025-10-07 21:56] LABS: Troponin I < 3 ng/L (<54)
[2025-10-07] MEDS: Normal Saline Flush 10 ML SYR IVP (22:29)
[2025-10-07] MEDS: Normal Saline - Diluent 50 ML VIAL IJ (22:29)
[2025-10-07] MEDS: Omnipaque 350 MG/ML 100 ML BTL IJ (22:29)
--- NOTE | 2025-10-07 22:36 | ED.GENADUL_ITS ---
Discharge Plan Disposition [facility] Disposition[facility] Discharge Details Clinical Impression: Open wound of right wrist, Convulsions, Atypical chest pain Primary Care Provider: Unknown,Unknown ED Provider: Dileep Canseco Home Meds and New Rx's Prescriptions: No Action buprenorphine-naloxone [Suboxone] 8-2 mg film 1 film sublingual DAILY Patient Comments: Taking 8mg tablets while incarcerated. multivitamin [Multiple Vitamins] Tablet 1 tab PO QAM Qty: 90 0RF acetaminophen 325 mg Tablet 650 mg PO Q4H PRN PRNQty: 90 0RF gabapentin 300 mg Capsule 300 mg PO TID Qty: 90 0RF folic acid 1 mg Tablet 1 mg PO QAM 30 Days Qty: 30 0RF thiamine mononitrate (vit B1) [Vitamin B-1 (mononitrate)] 100 mg Tablet 100 mg PO QAM 30 Days Qty: 30 0RF timolol maleate 0.5 % drops 1 drp ophthalmic (eye) DAILY Qty: 10 0RF Discharge Instructions Instructions: Chest Pain (DC), Wound Infection, Seizures, Adult ED Additional Instructions: Please follow-up with your primary care provider regarding your visit to the emergency department today. Be sure to discuss results of all test performed here today to include radiology, and laboratory testing as well as results for any pending cultures. Should your symptoms worsen, or if you develop new concerning symptoms, please return immediately emergency department for further evaluation. HPI General Date/Time Provider Initiated Documentation: 10/07/25 20:07 . HPI Narrative: MDM/Narrative: 45-year-old male past medical history of alcoholism, opioid abuse, reported withdrawal seizures, who is hospitalized over the past 5 days and discharged back to the long term earlier this morning, presents for reportedly 3 episodes of tonic-clonic seizures as well is persistent severe chest pain. Vital signs notable for tachycardia, otherwise unremarkable. Physical exam notable for chronic wound over the radial aspect of the right wrist with active oozing after wound dressings were removed, no other focal signs of trauma. Patient is accompanied by benefits officer who endorsed that there is a cording of the patient stating when he was unaware he was being reported that he was rehearsing having seizures. Patient also endorses his last drink of alcohol was over 7 days ago making alcohol withdrawal seizures unlikely in the setting. However given persistent tachycardia and reported history will obtain screening imaging including CTA chest to rule out pulmonary embolism, and labs including lactic acid to assess for physiologic signs of actual seizure. An abundance of caution will Keppra load with 3 g IV Keppra and continue to monitor. ED course: Labs are unremarkable, including a normal lactic acid making actual seizure activity unlikely in this clinical scenario. Patient was monitored with improvement of his pulse rate following administration of fluids. His chronic right wrist wound was irrigated and dressed with sterile nonadherent bandages. Regards to the patient's chest pain, this is also a complaint which is unlikely to represent ACS given its atypical pattern, lack of modification by exertion, reassuring EKG and troponin x 2. CT of the chest shows no acute pulmonary embolism. As such we will recommend patient follow-up with his primary care provider or return to emergency department for any new or worsening symptoms. Disposition: Discharged to long term HPI: 45-year-old male with a past medical history of alcoholism, reported withdrawal seizures and opioid abuse, presents for evaluation of tonic-clonic seizure-like activity. Patient arrives via EMS from local correctional facility reportedly he developed severe chest pain, was treated with nitroglycerin and 324 of aspirin by EMS and then had 3 episodes of approximately 1 minute long generalized tonic clonic seizures. No reported postictal period, and patient is able to recount most of the history himself. [facility] staff were at bedside endorse that the patient was heard planning to have tonic-clonic seizures when he did not think anyone could hear him speaking earlier today. At the time of initial evaluation the patient does endorse substernal chest pain rated 10 out of 10, denies any ameliorating or worsening factors, any radiation or associated shortness of breath, nausea, vomiting, or any other new or concerning symptoms. Patient does not notice a chronic right wrist wound, which appears to be secondary to self-injury behavior with handcuffs as documented during his previous stay in our hospital. ROS: Negative besides as mentioned above Exam: Gen: A&O NAD HEENT: NCAT, EOMI, not icteric. External ears normal. No rhinorrhea. Moist mucous membranes. Neck: Supple, full range of motion, no observable masses, No meningeal sign. Lungs: No Respiratory distress. CV: RRR, no edema. Abdomen: Soft, nondistended, No rebound tenderness. MSK: No joint swelling, no redness. Skin: No rashes, petechiae, lesions. Normal color per patient. There is approximately quarter sized circular chronic wound over the radial aspect of the right wrist with minimal oozing on exam, no surrounding erythema, induration, or fluctuance. Neuro: Normal Gait, Grossly intact. Psych: Appropriate for situation. Rhythm: NSR Rate: 101 [place]: Normal axis Intervals: Normal intervals Other findings: No acute ST segment or T wave changes to suggest acute ischemia. Labs: Laboratory Tests Range/Units 10/07/25 10/07/25 10/07/25 20:06 21:27 21:35 WBC (4.4-10.8) 10^3/uL 5.05 RBC (4.36-5.78) 10^6/uL 4.62 Hgb (13.5-17.5) g/dL 14.6 Hct (40.0-50.0) % 43.9 MCV (80-95) fL 95 MCH (27.0-33.0) pg 31.6 MCHC (32.0-36.0) % 33.3 RDW (11.8-14.1) % 11.8 Plt Count (130-400) 10^3/uL 349 MPV (8.0-11.0) fL 10.1 Immature Gran % % 0.4 Neutrophils % % 54.8 Lymphocytes % % 28.5 Monocytes % % 12.5 Eosinophils % % 3.4 Basophils % % 0.4 Nucleated RBC % (0.0-0.3) % 0.0 Absolute Neutrophils (1.2-6.7) 10^3/uL 2.77 Absolute Lymphocytes (1.2-3.4) 10^3/uL 1.44 Absolute Monocytes (0.1-0.8) 10^3/uL 0.63 Absolute Eosinophils (0.0-0.7) 10^3/uL 0.17 Absolute Basophils (0.0-0.2) 10^3/uL 0.02 VBG Lactate (<or=2.0) mmol/L 1.1 Sodium (136-145) mmol/L 139 Potassium (3.5-5.1) mmol/L 3.7 Chloride (98-107) mmol/L 107 Carbon Dioxide (20.0-31.0) mmol/L 24.9 Anion Gap (3-11) mmol/L 7.1 BUN (9-23) mg/dL 16 Creatinine (0.73-1.18) mg/dL 0.77 Est GFR (CKD-EPI 2020) (mL/min/1.73m2) 108.92 Glucose (74-106) mg/dL 107 H Calcium (8.3-10.6) mg/dL 8.4 Magnesium (1.6-2.6) mg/dL 1.8 Total Bilirubin (0.2-1.2) mg/dL 0.4 AST (<34) U/L 33 ALT (10-49) U/L 29 Alkaline Phosphatase (46-116) U/L 120 H Troponin I (<54) ng/L < 3 NT-Pro-B Natriuret Pep (<300) pg/mL 98 Total Protein (5.7-8.2) g/dL 7.1 Albumin (3.2-5.0) g/dL 3.9 Lipase (<53) U/L 24 Ethyl Alcohol (<3) mg/dL < 3.0 Range/Units 10/07/25 23:06 WBC (4.4-10.8) 10^3/uL RBC (4.36-5.78) 10^6/uL Hgb (13.5-17.5) g/dL Hct (40.0-50.0) % MCV (80-95) fL MCH (27.0-33.0) pg MCHC (32.0-36.0) % RDW (11.8-14.1) % Plt Count (130-400) 10^3/uL MPV (8.0-11.0) fL Immature Gran % % Neutrophils % % Lymphocytes % % Monocytes % % Eosinophils % % Basophils % % Nucleated RBC % (0.0-0.3) % Absolute Neutrophils (1.2-6.7) 10^3/uL Absolute Lymphocytes (1.2-3.4) 10^3/uL Absolute Monocytes (0.1-0.8) 10^3/uL Absolute Eosinophils (0.0-0.7) 10^3/uL Absolute Basophils (0.0-0.2) 10^3/uL VBG Lactate (<or=2.0) mmol/L Sodium (136-145) mmol/L Potassium (3.5-5.1) mmol/L Chloride (98-107) mmol/L Carbon Dioxide (20.0-31.0) mmol/L Anion Gap (3-11) mmol/L BUN (9-23) mg/dL Creatinine (0.73-1.18) mg/dL Est GFR (CKD-EPI 2020) (mL/min/1.73m2) Glucose (74-106) mg/dL Calcium (8.3-10.6) mg/dL Magnesium (1.6-2.6) mg/dL Total Bilirubin (0.2-1.2) mg/dL AST (<34) U/L ALT (10-49) U/L Alkaline Phosphatase (46-116) U/L Troponin I (<54) ng/L Cancelled NT-Pro-B Natriuret Pep (<300) pg/mL Total Protein (5.7-8.2) g/dL Albumin (3.2-5.0) g/dL Lipase (<53) U/L Ethyl Alcohol (<3) mg/dL Radiology: PROCEDURE INFORMATION: Exam: CTA Chest With Contrast Exam date and time: 10/07/2025 10:27 PM Age: 45 years old Clinical indication: Other: Tachycardia, seizure, chest pain, rib pain TECHNIQUE: Imaging protocol: Computed tomographic angiography of the chest with contrast. Exam focused on the arteries. 3D rendering (Not supervised by radiologist): MIP and/or 3D reconstructed images were created by the technologist. Contrast material: OMNIPAQUE 350; Contrast volume: 80 ml; Contrast route: INTRAVENOUS (IV); COMPARISON: CT CHEST PE CTA 05/21/2025 4:45 PM FINDINGS: Pulmonary arteries: No acute pulmonary embolus. Aorta: Unremarkable. No aortic aneurysm. No aortic dissection. Lungs: The lungs are clear. Pleural spaces: Unremarkable. No pneumothorax. No pleural effusion. Heart: Heart is mildly enlarged. No pericardial effusion. Lymph nodes: No enlarged lymph nodes. Bones/joints: Bones have a normal appearance. There are displaced lateral 5th 6th and 7th rib fractures with some callus suggesting subacute fractures. No other fracture or dislocation. Soft tissues: Unremarkable. IMPRESSION: 1. No pulmonary embolus. TYLER SIMENTAL Preliminary Radiology Report SPECIAL MACHINE STITCHER (QA) DISCREPANCY? If there is a discrepancy between the preliminary and final interpretation, please notify [facility] via [email or web address]. If you do not have access to our QA portal, call our QA team at [phone] CONFIDENTIALITY STATEMENT This report is intended only for the use of the referring physician, and only in accordance with law, If you received this in error, call [phone] Page 2 of 2 2. Partially healed left rib fractures. 3. No acute pulmonary findings. Thank you for allowing us to participate in the care of your patient. Dictated and Authenticated by: Alexandria Delgadillo MD Related Data Home Medications ?Medication ?Instructions ?Recorded ?Confirmed buprenorphine 8 mg-naloxone 2 mg 1 film sublingual DANYA LY 05/19/25 10/07/25 sublingual film (Suboxone) acetaminophen 325 mg tablet 650 mg (2 x 325 mg) PO Q4H PRN PRN 10/06/25 10/07/25 Held on 10/07/25. #90 tabs Instructions: Pt Stopped/Never Started folic acid 1 mg tablet 1 mg PO QAM 30 days #30 tabs 10/06/25 10/07/25 gabapentin 300 mg capsule 300 mg PO TID #90 caps 10/0610/07/25 multivitamin (Multiple Vitamins 1 tab PO QAM #90 tabs 10/06/25 10/07/25 tablet) thiamine mononitrate (vit B1) 100 100 mg PO QAM 30 day s #30 tabs 10/06/25 10/07/25 mg tablet (Vitamin B-1 (mononitrate)) timolol maleate 0.5 % eye drops 1 drp ophthalmic (eye) DAILY #10 mL 10/06/25 10/07/25 Previous Rx's ?Medication ?Instructions ?Recorded acetaminophen 325 mg tablet 650 mg (2 x 325 mg) PO Q4H PRN PRN 10/06/25 Held on 10/07/25. #90 tabs Instructions: Pt Stopped/Never Started folic acid 1 mg tablet 1 mg PO QAM 30 days #30 tabs 10/06/25 gabapentin 300 mg capsule 300 mg PO TID #90 caps 10/06 multivitamin (Multiple Vitamins 1 tab PO QAM #90 tabs 10/06/25 tablet) thiamine mononitrate (vit B1) 100 100 mg PO QAM 30 day s #30 tabs 10/06/25 mg tablet (Vitamin B-1 (mononitrate)) timolol maleate 0.5 % eye drops 1 drp ophthalmic (eye) DAILY #10 mL 10/06/25 Allergies Allergy/AdvReac Type Severity Reaction Status Date / Time No Known Allergies Allergy Unverified 10/02/25 10:44 General Stated Complaint: Seizure VALENTE: 3 Course Vital Signs Vital signs: Vital Signs Temperature 36.8 C 10/07/25 20:08 Pulse 112 H 10/07/25 20:08 Respiratory Rate 17 10/07/25 20:08 Blood Pressure 106/71 10/07/25 20:08 Pulse Oximetry 96 10/07/25 20:08 Temperature 36.8 C 10/07/25 20:08 Temperature Source Oral 10/07/25 20:08 Pulse 79 10/07/25 21:40 Pulse 80 10/07/25 21:40 Respiratory Rate 16 10/07/25 21:40 Respiratory Effort Normal 10/07/25 20:33 Respiratory Depth Normal 10/07/25 20:33 Respiratory Pattern Normal 10/07/25 20:33 Blood Pressure 126/95 H 10/07/25 21:31 Blood Pressure Mean 102 10/07/25 21:31 Blood Pressure Position Supine 10/07/25 20:08 Pulse Oximetry 100 10/07/25 21:40 Oxygen Delivery Method Room Air 10/07/25 20:08 Oxygen Flow Rate 0 10/07/25 20:08 Pain Level 10 10/07/25 20:08 Lab/Test Results Lab/Test Results: Laboratory Tests Range/Units 10/07/25 10/07/25 10/07/25 20:06 21:27 21:35 WBC (4.4-10.8) 10^3/uL 5.05 RBC (4.36-5.78) 10^6/uL 4.62 Hgb (13.5-17.5) g/dL 14.6 Hct (40.0-50.0) % 43.9 MCV (80-95) fL 95 MCH (27.0-33.0) pg 31.6 MCHC (32.0-36.0) % 33.3 RDW (11.8-14.1) % 11.8 Plt Count (130-400) 10^3/uL 349 MPV (8.0-11.0) fL 10.1 Immature Gran % % 0.4 Neutrophils % % 54.8 Lymphocytes % % 28.5 Monocytes % % 12.5 Eosinophils % % 3.4 Basophils % % 0.4 Nucleated RBC % (0.0-0.3) % 0.0 Absolute Neutrophils (1.2-6.7) 10^3/uL 2.77 Absolute Lymphocytes (1.2-3.4) 10^3/uL 1.44 Absolute Monocytes (0.1-0.8) 10^3/uL 0.63 Absolute Eosinophils (0.0-0.7) 10^3/uL 0.17 Absolute Basophils (0.0-0.2) 10^3/uL 0.02 VBG Lactate (<or=2.0) mmol/L 1.1 Sodium (136-145) mmol/L 139 Potassium (3.5-5.1) mmol/L 3.7 Chloride (98-107) mmol/L 107 Carbon Dioxide (20.0-31.0) mmol/L 24.9 Anion Gap (3-11) mmol/L 7.1 BUN (9-23) mg/dL 16 Creatinine (0.73-1.18) mg/dL 0.77 Est GFR (CKD-EPI 2020) (mL/min/1.73m2) 108.92 Glucose (74-106) mg/dL 107 H Calcium (8.3-10.6) mg/dL 8.4 Magnesium (1.6-2.6) mg/dL 1.8 Total Bilirubin (0.2-1.2) mg/dL 0.4 AST (<34) U/L 33 ALT (10-49) U/L 29 Alkaline Phosphatase (46-116) U/L 120 H Troponin I (<54) ng/L < 3 NT-Pro-B Natriuret Pep (<300) pg/mL 98 Total Protein (5.7-8.2) g/dL 7.1 Albumin (3.2-5.0) g/dL 3.9 Lipase (<53) U/L 24 Ethyl Alcohol (<3) mg/dL < 3.0 Range/Units 10/07/25 23:06 WBC (4.4-10.8) 10^3/uL RBC (4.36-5.78) 10^6/uL Hgb (13.5-17.5) g/dL Hct (40.0-50.0) % MCV (80-95) fL MCH (27.0-33.0) pg MCHC (32.0-36.0) % RDW (11.8-14.1) % Plt Count (130-400) 10^3/uL MPV (8.0-11.0) fL Immature Gran % % Neutrophils % % Lymphocytes % % Monocytes % % Eosinophils % % Basophils % % Nucleated RBC % (0.0-0.3) % Absolute Neutrophils (1.2-6.7) 10^3/uL Absolute Lymphocytes (1.2-3.4) 10^3/uL Absolute Monocytes (0.1-0.8) 10^3/uL Absolute Eosinophils (0.0-0.7) 10^3/uL Absolute Basophils (0.0-0.2) 10^3/uL VBG Lactate (<or=2.0) mmol/L Sodium (136-145) mmol/L Potassium (3.5-5.1) mmol/L Chloride (98-107) mmol/L Carbon Dioxide (20.0-31.0) mmol/L Anion Gap (3-11) mmol/L BUN (9-23) mg/dL Creatinine (0.73-1.18) mg/dL Est GFR (CKD-EPI 2020) (mL/min/1.73m2) Glucose (74-106) mg/dL Calcium (8.3-10.6) mg/dL Magnesium (1.6-2.6) mg/dL Total Bilirubin (0.2-1.2) mg/dL AST (<34) U/L ALT (10-49) U/L Alkaline Phosphatase (46-116) U/L Troponin I (<54) ng/L Cancelled NT-Pro-B Natriuret Pep (<300) pg/mL Total Protein (5.7-8.2) g/dL Albumin (3.2-5.0) g/dL Lipase (<53) U/L Ethyl Alcohol (<3) mg/dL Medical Decision Making Quality:SDOH Health Related Social Needs: Health related social needs material hardship Health related social needs details none PFSH All Active Problems (Updated 10/07/25 @ 23:18 by Dileep Canseco MD) Atypical chest pain (Acute) Glaucoma (Chronic) Opioid use disorder, severe, on maintenance therapy, dependence (Chronic) Alcoholism with alcohol dependence (Chronic) Alcohol withdrawal syndrome with perceptual disturbance (Acute) Alcohol use (Acute) Opiate use (Acute) Encephalomalacia on imaging study (Acute) Convulsions (Acute) Open wound of right wrist (Acute) Medical History (Updated 10/07/25 @ 23:18 by Dileep Canseco MD) DVT (deep venous thrombosis) Social History Smoking/Tobacco Use Status: Former Tobacco Use Smoking risk assessment performed?: Yes Alcohol Intake: current Alcohol Intake frequency: 3 or more drinks per day Drug use: Daily Substance use type: marijuana and crack/cocaine Details: pt states last drink was either Thursday morning or Thursday morning Housing: house Additional Social history: correctional facility. PAWSS Have you Been Recently Intoxicated or Drunk Within the Last 30 days?: Yes Have you Ever Experienced Previous Episodes of Alcohol Withdrawal?: Yes Have you ever Experienced Withdrawal Seizures?: Yes Have you ever Experienced Delirium Tremens(DT)s?: Yes Have you ever undergone Alcohol Rehabilitation Treatment (i.e, inpt ot outpatient treatment programs)?: Yes Have you ever Experienced Blackouts?: Yes Have you ever Combined Alcohol with other Downers within the last 90 days?: Yes Have you ever Combined Alcohol with any other Substance of Abuse during the last 90 days?: Yes Positive Blood Alcohol level on Presentation? [PCS.BAL]: No Evidence of Increased Autonomic Activity (i.e. HR>120, tremor, sweating, agitation, nausea)?: Yes Result: 9
--- NOTE | 2025-10-07 22:36 | DI.CT_ITS ---
Exam(s) CT CHEST PE CTA EXAM: CT CHEST PE CTA CLINICAL HISTORY: tachycardia, seizure, chest pain. TECHNIQUE: Imaging Protocol: Axial CT angiography was performed with multi- slice acquisition and multi-planar and/or 3D reconstructions. Lung Computer Aided Detection (CAD) was utilized. CONTRAST MATERIAL: Intravenous: Omnipaque 350 contrast volume:80 mL COMPARISON: CT CT CHEST PE CTA from 05/21/2025 CR,XR XR CHEST 2V PA LATERAL from 10/02/2025 FINDINGS: Tracheobronchial tree: Patent where visualized. No bronchiectasis. Pulmonary parenchyma: No consolidation or dominant measurable mass. Emphysematous changes are seen in the lungs. Pulmonary Arteries: No evidence of filling defect to suggest pulmonary emboli. Mediastinum and Eliana: No dominant adenopathy or fluid collection. The esophagus is unremarkable. Visualized thyroid gland: Unremarkable. Pleura: No effusion or pneumothorax. Heart: The heart is not dilated. No coronary artery calcifications are seen. No pericardial effusion. Aorta: Thoracic aorta non-dilated. No evidence of dissection. Upper abdomen: Unremarkable. Soft tissues: There is mild gynecomastia. Bones: Within normal limits for the patient's age.There are subacute nondisplaced fractures involving the lateral aspects of the left 5th and 6th ribs. There also nondisplaced subacute fractures involving the posterolateral aspects of the left 10th and 11th ribs. There are old healed right and left 1 2th rib fractures. IMPRESSION: 1. There is no evidence of a pulmonary embolism or thoracic aortic aneurysm. 2. Subacute nondisplaced fractures involving the left 5th, 6th, 10th and 11th ribs. 3. There is no acute pulmonary process, pneumothorax or pleural effusion. 4. The preliminary [facility] report was reviewed. RADIATION DOSE DELIVERED: 80.16mGy.cm Total DLP DATA REPOSITORY: All CT scans at this facility are submitted to the National Radiology Data Registry (NRDR) Dose Index Registry (DIR) with the [employer] ([employer]). RADIATION OPTIMIZATION: All CT scans at this facility use at least one of these dose optimization techniques: automated exposure control; mA and/or kV adjustment per patient size (includes targeted exams where dose is matched to clinical indication); or iterative reconstruction.
--- NOTE | 2025-10-07 23:13 | DI.[facility]_ITS ---
PROCEDURE INFORMATION: Exam: CTA Chest With Contrast Exam date and time: 10/07/2025 10:27 PM Age: 45 years old Clinical indication: Other: Tachycardia, seizure, chest pain, rib pain TECHNIQUE: Imaging protocol: Computed tomographic angiography of the chest with contrast. Exam focused on the arteries. 3D rendering (Not supervised by radiologist): MIP and/or 3D reconstructed images were created by the technologist. Contrast material: OMNIPAQUE 350; Contrast volume: 80 ml; Contrast route: INTRAVENOUS (IV); COMPARISON: CT CHEST PE CTA 05/21/2025 4:45 PM FINDINGS: Pulmonary arteries: No acute pulmonary embolus. Aorta: Unremarkable. No aortic aneurysm. No aortic dissection. Lungs: The lungs are clear. Pleural spaces: Unremarkable. No pneumothorax. No pleural effusion. Heart: Heart is mildly enlarged. No pericardial effusion. Lymph nodes: No enlarged lymph nodes. Bones/joints: Bones have a normal appearance. There are displaced lateral 5th 6th and 7th rib fractures with some callus suggesting subacute fractures. No other fracture or dislocation. Soft tissues: Unremarkable. IMPRESSION: 1. No pulmonary embolus. 2. Partially healed left rib fractures. 3. No acute pulmonary findings. Dictated and Authenticated by: Alexandria Delgadillo MD. Orderin Harleen Falk MD
[2025-10-07 23:24] LABS: Troponin I < 3 ng/L (<54)
== END 2025-10-07 23:20 ==
PROVIDERS: Emergency Provider General Practice
DX: R07.89 Other chest pain (principal); R56.9 Unspecified convulsions; S61.501A Unspecified open wound of right wrist, initial encounter; X58.XXXA Exposure to other specified factors, initial encounter
CPT/HCPCS: 99284; 99285; 36415; 71275; 80053; 83690; 93005; 96365; 80320; 83605; 83735; 83880; 84484; 85025; 93010; J1953; J3490